=== PATIENT | female | born 1940 | race Caucasian/White ===

== ENCOUNTER → 2024-06-30 12:43 | Outpatient (REF) | payer OTHER, SELFPAY | LOC: HWRCS 12:43 | PROVIDERS: ATTENDING PHYSICIAN Internal Medicine Cardiovascular Disease; FAMILY PHYSICIAN Family Medicine | DX: I25.5 Ischemic cardiomyopathy (principal); Z95.5 Presence of coronary angioplasty implant and graft; I50.22 Chronic systolic (congestive) heart failure | CPT/HCPCS: 93306 ==

== ENCOUNTER 2024-07-03 12:35 | Emergency (ER) | payer OTHER, SELFPAY ==
[2024-07-03 12:47] VITALS: BP 154/83
[2024-07-03 14:13] LABS: % Basophils 0.6 % (0-2); % Eosinophils 0.8 % (0-6); % Immature Granulocytes 0.3 % (0-0.5); % Monocytes 7.1 % (1.7-9.3); % Neutrophils 72.2 % (42.2-75.2); Absolute Basophils 0.1 10^3/uL (0-0.2); Absolute Eosinophils 0.1 10^3/uL (0-0.7); Absolute Lymphocytes 1.5 10^3/uL (1.2-3.4); Absolute Monocytes 0.6 10^3/uL (0.1-0.6); Absolute Neutrophils 5.6 10^3/uL (1.4-6.5); Hematocrit 36.6 % (37.0-47.0); Hemoglobin 12.3 g/dL (12.0-16.0); Mean Corp Hgb Conc. 33.6 g/dL (33.0-37.0); Mean Corpuscular Hgb 32.9 pg (27.0-31.0); Mean Corpuscular Volume 97.9 fL (81.0-99.0); Mean Platelet Volume 10.3 fL (7.4-10.4); Nucleated Red Blood Cells % 0 %; Platelet Count 196 10^3/uL (130-400); Red Blood Cell Count 3.74 10^6/uL (4.20-5.40); Red Cell Dist. Width 13.2 % (11.5-14.5); White Blood Cell Count 7.8 10^3/uL (4.8-10.8)
[2024-07-03 14:28] LABS: ALT (SGPT) 30 U/L (0-35); AST (SGOT) 28 U/L (14-36); Albumin 4.6 g/dl (3.5-5.0); Alkaline Phosphatase 85 U/L (38-126); Blood Urea Nitrogen 24 mg/dl (7-17); Calcium 9.6 mg/dl (8.4-10.2); Carbon Dioxide 28 mmol/L (22-30); Chloride 101 mmol/L (98-107); Glucose 241 mg/dl (70-99); Potassium 4.4 mmol/L (3.5-5.1); Sodium 142 mmol/L (135-145); Total Bilirubin 0.4 mg/dl (0.2-1.3); Total Protein 7.5 g/dl (6.3-8.2); eGFR 37.56
--- NOTE | 2024-07-03 15:00 | ED.MUSCINJ ---
HPI-Injury
General
Chief Complaint: Fall
Source: patient and spouse
Exam Limitations: none
Time Seen by Provider: 07/03/24 13:31
Nursing documentation reviewed up to this point in time: agreed with
History of Present Illness-Injury
Initial Injury comments:
83 yo female w h/o CVA, CHF, CAD, HTN, HLD, mitral regurg, TX, GERD, IDDM, CABG times 12/12/1997, defibrillator 10/2015 presents after being evaluated at her cardiology office by [employer] Jovita Hartman on a regular follow-up. Patient and state
patient had a fall 2 nights ago in the bathroom. She had 1 foot up on the tub applying lotion to her leg when she states the next thing she knew she was on the floor, she does not remember falling or feeling dizzy or lightheaded prior to the fall.
Her states he was standing right beside her and helped lower her to the floor and as she fell her right arm flung out and struck the vanity. She is here for pain in the right wrist and bruising of the right forearm and wrist from the fall.
Since the fall, has had no dizziness, lightheadedness, CP, SOB, abdominal pain n/v/d/c.
Past History
Past History
ED Past Medical History: CAD, CVA, GERD, HTN, Hypercholesterolemia, NIDDM and Other (Anemia)
ED Past Surgical History: Cardiac (Coronary artery bypass graft, 4 vessel, 1997), , Gynecological (Hysterectomy) and Other (Right breast lumpectomy for benign nodule, right eye laser surgery for treatment of detached retina)
Social History
Tobacco: Non-smoker
Alcohol: None
Drug: None
Personal:
Living: with family
Employment: Retired
Family History
Family History: Other (Not applicable)
Review of Systems
Review of Systems
Allergies reviewed?: Yes
All Other Systems: ROS reviewed and negative except as documented in HPI and ROS
Constitutional: Denies fever or fatigue
Respiratory: Denies trouble breathing
Cardiac: Reports syncope; Denies chest pain, diaphoresis or palpitations
ABD/GI: Denies abdominal pain, nausea or vomiting
: Denies dysuria, frequency, difficulty voiding or urgency
Musculoskeletal: Reports other (pain right wrist); Denies neck pain or back pain
Skin: Reports other (bruising right wrist, hand, forearm)
Neurological: Reports no symptoms
Phy Exam
Physical Exam
Physical Exam:
GENERAL: No acute distress. A&Ox3.
CONSTITUTIONAL: Afebrile.
EYES: PERRL, conjunctivae normal
Neck: Supple
ENMT: moist mucus membranes, Pharynx nl
RESPIRATORY: Regular respirations, nonlabored, lungs clear.
CARDIOVASCULAR: Regular rate and rhythm, no murmurs, no rubs.
GI: Soft, nontender, normal BS
MUSCULOSKELETAL: No spinal bony tenderness. Swollen tender ecchymotic right wrist. Mild swelling and ecchymosis right forearm and hand dorsum. moves with ease. Well perfused.
SKIN: Warm, dry, pink.
PSYCH: Normal mood and affect. Well kept, interactive and appropriate
NEUROLOGIC: Awake, alert and oriented. Cranial nerves II through XII intact. Speech clear. Moving all extremities well, strength equal throughout. No focal neurological deficits
Injury Course
Orders/Labs/Results
Orders:
Orders
07/03/24 12:48
CR Wrist - Right Min 3 Views Urgent
Comment:
Reason For Exam: Trauma: Injured in fall.
07/03/24 13:45
Maurice Wrist Right-Tx ONCE
07/03/24 14:04
Complete Blood Count/With Diff Urgent
Comprehensive Metabolic Panel Urgent
Abnormal Lab Results
07/03/24
14:04
RBC 3.74 L 10^6/uL
(4.20-5.40)
Hct 36.6 L %
(37.0-47.0)
MCH 32.9 H pg
(27.0-31.0)
Lymphocytes % 19.0 L %
(20.5-51.1)
BUN 24 H mg/dl
(7-17)
Creatinine 1.4 H mg/dL
(0.6-1.0)
Glucose 241 H mg/dl
(70-99)
07/03/24 14:04
07/03/24 14:04
MDM/Problems Addressed
Differential Diagnosis Includes:
vasovagal episode, orthostatic hypotension
MDM/Problems Addressed:
83 yo female w h/o CVA, CHF, CAD, HTN, HLD, mitral regurg, TX, GERD, IDDM, CABG times 12/12/1997, defibrillator 10/2015 presents after being evaluated at her cardiology office by [facility] Hartman on a regular follow-up. Patient and state
patient had a fall 2 nights ago in the bathroom. She had 1 foot up on the tub applying lotion to her leg when she states the next thing she knew she was on the floor, she does not remember falling or feeling dizzy or lightheaded prior to the fall.
Her states he was standing right beside her and helped lower her to the floor and as she fell her right arm flung out and struck the vanity. She is here for pain in the right wrist and bruising of the right forearm and wrist from the fall.
Since the fall, has had no dizziness, lightheadedness, CP, SOB, abdominal pain n/v/d/c.
Xray right wrist initially read by this examiner: No fracture. Soft tissue swelling noted. Maurice wrist splint applied for comfort.
I contacted Jovita Hartman, [facility] cardi[facility] and she states that she did interrogate her defibrillator today and there were no abnormal episodes. She states that the device nurse will call patient to arrange to change her subq ICD monitor to 180 from
200, she also states that she thinks the episode was most likely an orthostatic episode as she found out at patient's visit today that she has been taking her Entresto 49/52 tablets 2 twice daily when she is only supposed be taking ONE BID. She is
also been taking Eliquis 5 mg twice daily when she should be on 2.5 mg twice daily and this would explain the significant bruising/ecchymosis on her right forearm and wrist from the impact.
Jovita states at the visit today she initially told the patient to decrease her Eliquis to 2.5 mg twice daily and obviously her Entresto to once BID.
Then Jovita reached out to me again because she saw that her creatinine today is 1.4 so she does want her to stay on the Eliquis 5 mg twice a day for now.
Pt is stable for discharge, ambulating well with her cane.
All discharge instructions reviewed and pt and understand
Jovita stopped in to see them just prior to discharge.
*Critical Care Note
Total Time (30-74mins, 75-104mins- exclusive of procedures): Not Applicable
ED Attending Note
-
Portions of this chart may have been created with voice recognition software.� Occasional wrong word or��sound alike� substitutions may have occurred due to the inherent limitations of voice recognition software.
Discharge Plan
Departure
Patient Disposition: Home (Routine Discharge)
Date of Disposition: 07/03/24
Time of Disposition: 15:23
Patient with high blood pressure during this ER visit?: Yes
Condition: Good
Discharge Problem:
Fall, Contusion of right wrist
Instructions: Acute Compartment Syndrome (DC), Contusion (DC), Preventing falls in adults, Fainting, Adult ED
Prescriptions:
No Action
furosemide 40 MG tablet
40 mg PO DAILY
carvedilol 12.5 MG tablet
12.5 mg PO BID@0800,1200
ascorbic acid (vitamin C) [Vitamin C] 500 MG tablet
500 mg PO DAILY
levothyroxine 50 MCG tablet
50 mcg PO DAILY
ferrous sulfate [FeroSul] 325 MG tablet
325 mg PO DAILY
nitroglycerin 0.4 MG tablet, sublingual
0.4 mg sublingual [id number] PRN (Reason: CHEST PAIN)
Centrum Silver Women 1 EACH tablet
1 ea PO DAILY
calcium carbonate [Antacid (calcium carbonate)] 1 TABLET tablet,chewable
1,000 mg PO DAILYPRN PRN (Reason: upset stomach)
amiodarone [Pacerone] 200 MG tablet
200 mg PO DAILY
glimepiride 4 MG tablet
4 mg PO DAILY
docusate sodium 100 MG capsule
100 mg PO BID
fluticasone propionate 1 SPRAY spray,suspension
1 spray intranasal DAILY
clopidogrel 75 MG tablet
75 mg PO DAILY Qty: 30 0RF
Entresto 1 TAB tablet
1 tab PO BID Qty: 60 0RF
Levemir FlexTouch U100 Insulin 300 UNIT/3 ML insulin pen
15 unit SC DAILY Qty: 0 0RF
Patient Comments:
15- 30 units, variable units
Levemir FlexTouch U100 Insulin 300 UNIT/3 ML insulin pen
10 unit SC HS Qty: 0 0RF
diphenhydramine HCl [Benadryl] 25 mg Capsule
25 mg PO DAILY PRN (Reason: allergies)
warfarin 5 mg Tablet
5 mg PO HS
loratadine [Claritin] 10 mg Tablet
10 mg PO DAILY
atorvastatin 80 MG tablet
80 mg PO HS
cephalexin [cephalexin] 500 mg capsule
500 mg PO Q8H Qty: 3 0RF
Rx Instructions:
First dose due at 4pm today
Referrals:
Evan Cano MD [Family Provider] -
Activity Restrictions/Additional Instructions:
As we discussed, I spoke with Jovita Hartman from your cardiology group. She initially told you to decrease the Eliquis to 2.5 mg twice daily.
She has since seen your blood work from today and wants you to go ahead and continue the 5 mg twice daily.
Also, as she said, decrease your dose of Entresto from 2 twice a day to ONE twice a day as this may have contributed to your fainting spell.
The Cardiac Device Nurse will be contacting you to adjust your defibrillator
Return here immediately for worse forearm/wrist/hand swelling or pain, pale or cold fingers, the signs of compartment syndrome as we discussed.
Interventions
Interventions:
*Risk Screen - Suicide Last Done: 07/03/24 15:36
*General Assessment Last Done: 07/03/24 16:01
*Neglect/Abuse Screening Last Done: 07/03/24 15:36
*Nursing Disposition Last Done: 07/03/24 16:01
ED-Musculoskeletal Assessment Last Done: 07/03/24 14:26
ED- Neurological Assessment Last Done: 07/03/24 14:26
ED-Skin Assessment Last Done: 07/03/24 14:26
Discharge Date and Time
Discharge Date/Time: 07/03/24 16:03
Print Language: YORUBA
[2024-07-03 15:09] VITALS: BP 185/79
[2024-07-03 15:36] VITALS: BP 157/82
[2024-07-03 16:01] VITALS: BP 157/82
== END 2024-07-03 16:03 | disposition home or self-care (01) ==
LOC: EMR 12:35
PROVIDERS: Registered Nurse; EMERGENCY PHYSICIAN Emergency Medicine; FAMILY PHYSICIAN Family Medicine
DX: S60.211A Contusion of right wrist, initial encounter (principal); S50.11XA Contusion of right forearm, initial encounter; X58.XXXA Exposure to other specified factors, initial encounter; I11.0 Hypertensive heart disease with heart failure; I50.9 Heart failure, unspecified; I25.2 Old myocardial infarction; E11.9 Type 2 diabetes mellitus without complications; E78.00 Pure hypercholesterolemia, unspecified; I25.10 Atherosclerotic heart disease of native coronary artery without angina pectoris; I34.0 Nonrheumatic mitral (valve) insufficiency; K21.9 Gastro-esophageal reflux disease without esophagitis; Z79.01 Long term (current) use of anticoagulants; Z86.73 Personal history of transient ischemic attack (TIA), and cerebral infarction without residual deficits; Z90.710 Acquired absence of both cervix and uterus; Z95.1 Presence of aortocoronary bypass graft
CPT/HCPCS: 99283; 73110; 80053; 85025

== ENCOUNTER → 2024-08-07 11:37 | Outpatient (REF) | payer OTHER, SELFPAY ==
[2024-08-07 13:34] LABS: Blood Urea Nitrogen 23 mg/dl (7-17); Calcium 9.4 mg/dl (8.4-10.2); Carbon Dioxide 33 mmol/L (22-30); Chloride 96 mmol/L (98-107); Glucose 320 mg/dl (70-99); Potassium 4.2 mmol/L (3.5-5.1); Sodium 140 mmol/L (135-145)
== END ==
LOC: RAD 11:37
PROVIDERS: ATTENDING PHYSICIAN Nurse Practitioner
DX: I25.5 Ischemic cardiomyopathy (principal); Z79.899 Other long term (current) drug therapy
CPT/HCPCS: 36415; 71046; 80048

== ENCOUNTER 2024-08-21 14:37 | Inpatient (IN) | payer OTHER, SELFPAY ==
[2024-08-21] VITALS (7 sets, daily range): BP systolic 131–154; BP diastolic 68–84; BMI 32.3; BMI 32.0
[2024-08-21 10:41] LABS: % Basophils 0.2 % (0-2); % Immature Granulocytes 0.9 % (0-0.5); % Lymphocytes 7.7 % (20.5-51.1); % Monocytes 6.7 % (1.7-9.3); % Neutrophils 84.5 % (42.2-75.2); Absolute Immature Granulocytes 0.1 10^3/uL (0-0.05); Absolute Lymphocytes 0.7 10^3/uL (1.2-3.4); Absolute Monocytes 0.6 10^3/uL (0.1-0.6); Absolute Neutrophils 7.9 10^3/uL (1.4-6.5); Hematocrit 30.1 % (37.0-47.0); Hemoglobin 9.7 g/dL (12.0-16.0); Mean Corp Hgb Conc. 32.2 g/dL (33.0-37.0); Mean Corpuscular Hgb 32.7 pg (27.0-31.0); Mean Corpuscular Volume 101.3 fL (81.0-99.0); Mean Platelet Volume 10.6 fL (7.4-10.4); Nucleated Red Blood Cells % 0 %; Platelet Count 260 10^3/uL (130-400); Red Blood Cell Count 2.97 10^6/uL (4.20-5.40); Red Cell Dist. Width 14.2 % (11.5-14.5); White Blood Cell Count 9.3 10^3/uL (4.8-10.8)
[2024-08-21 10:49] LABS: ALT (SGPT) 68 U/L (0-35); AST (SGOT) 42 U/L (14-36); Albumin 4.1 g/dl (3.5-5.0); Alkaline Phosphatase 94 U/L (38-126); Blood Urea Nitrogen 57 mg/dl (7-17); Calcium 9.3 mg/dl (8.4-10.2); Carbon Dioxide 24 mmol/L (22-30); Chloride 95 mmol/L (98-107); Glucose 432 mg/dl (70-99); Lactic Acid 1.9 mmol/L (0.7-2.0); Potassium 5.7 mmol/L (3.5-5.1); Sodium 133 mmol/L (135-145); Total Bilirubin 0.7 mg/dl (0.2-1.3); Total Protein 6.8 g/dl (6.3-8.2); eGFR 23.09
[2024-08-21 10:55] LABS: COVID-19 Antigen Negative (Negative)
[2024-08-21 11:00] LABS: NT-proBNP 23600 pg/ml
--- NOTE | 2024-08-21 12:55 | ED.GENMED ---
History of Present Illness
General
Chief Complaint: Weakness
Source: patient and spouse
Time Seen by Provider: 08/21/24 12:07
History of Present Illness
History of Present Illness:
This is an 83-year-old female who presents with generalized weakness. She also reports feeling short of breath. Patient states her symptoms started 3 days ago and have persisted. Patient admits to a history of CHF, coronary disease, bypass.
Patient is also diabetic. She admits to mild nausea. She denies melena or hematochezia. She denies abdominal pain. She denies fevers. No cough. Admits to a 4 to 5 pound weight gain. No palpitations. Does take Eliquis daily.
Past History
Past History
ED Past Medical History: CAD, CVA, GERD, HTN, Hypercholesterolemia, NIDDM and Other (Anemia)
ED Past Surgical History: Cardiac (Coronary artery bypass graft, 4 vessel, 1997), , Gynecological (Hysterectomy) and Other (Right breast lumpectomy for benign nodule, right eye laser surgery for treatment of detached retina)
Social History
Tobacco: Non-smoker
Alcohol: None
Drug: None
Personal:
Living: with family
Employment: Retired
Family History
Family History: Other (Not applicable)
Phy Exam
Physical Exam
Physical Exam:
CONSTITUTIONAL Patient alert and oriented to person, place and time. ill-appearing. Vital signs reviewed.
HEAD atraumatic, normocephalic.
EYES eyelids normal to inspection, Extraocular muscles intact, Conjunctiva normal, Sclera normal.
NECK normal range of motion, Trachea midline, no jugular venous distention.
RESPIRATORY CHEST No respiratory distress noted, Chest expansion equal, crackles bilaterally
CARDIOVASCULAR regular rate and rhythm, Heart sounds normal.
ABDOMEN abdomen nontender, Bowel sounds normal. No distention.
BACK normal inspection, no obvious deformities
UPPER EXTREMITY range of motion normal, Motor strength normal, no cyanosis, no edema.
LOWER EXTREMITY range of motion normal, Motor strength normal, no cyanosis, no edema.
NEURO Speech normal, No focal motor deficits, Ola coma scale 15, Memory normal, Cranial Nerves intact to screening exam.
SKIN skin warm, dry, and normal in color.
Course
Orders/Labs/Results
Orders:
Orders
08/21/24 10:11
Electrocardiogram (*1) Urgent
Reason for Study: Fatigue / Weakness
08/21/24 10:12
EKG- Treatment ONCE
08/21/24 10:19
COVID-19 Antigen Urgent
Source: Nasal Swab
Complete Blood Count/With Diff Urgent
Comprehensive Metabolic Panel Urgent
Lactic Acid Urgent
NT-proBNP Urgent
Troponin I Urgent
Influenza A+B Rapid Molecular Urgent
UMER Source: Nasal Swab
Specimen Description:
08/21/24 11:44
CR Chest - 2 Views Urgent
Comment:
Reason For Exam: hypoxia, weakness
08/21/24 11:51
Influenza A+B Rapid Molecular Urgent
UMER Source: Nasal Swab
Specimen Description:
08/21/24 12:54
Insulin Aspart [NOVOLOG vial] 10 units SC NOW STA
08/21/24 12:59
Furosemide [Lasix] 40 mg IV NOW STA
08/21/24 13:01
Electrocardiogram (*1) Stat
Reason for Study: Other
Other Reason for Exam: chest pain
EKG- Treatment ONCE
08/21/24 13:20
Troponin I Urgent
08/21/24 13:53
Admit/Transfer Patient As Directed
Co-Sign Provider:
Level of Care: Inpatient admission
Assign to:: Telemetry
Physician / Group: fabienne
Diagnosis: chf exacerbation
Reason for Telemetry: Arrhythmia
Date to Stop Telemetry: 08/24/24
Time to Stop Telemetry: 11:00
Reason for Hospitalization: chf exacerbation
Expected length of stay greater than two midnights?: Yes
ELOS- Estimated Length of Stay in days: 2
I certify the patient meets the requirements for IP care: Yes
Code Status As Directed
Resuscitation Status: Full Code
PRN Pain Medication Management As Directed
May give lesser potent ordered pain med per pt: Yes
preference::
Protocol:: Medication orders for pain may be administered in a
manner that supports deferring to patient preference
when the pt is:
- Requesting an ordered lesser potent pain medication.
Least to most potent pain medications are defined
as: acetaminophen < NSAID < tramadol < opioids
(morphine, oxycodone, hydromorphone).
- Requesting a lesser dose of the same medication IF
ORDERED.
- Requesting a less intrusive route of administration
if both routes are prescribed by the provider (PO <
IV).
08/21/24 14:05
Abdomen/Pelvis wo Contrast CT [CT Abd/pelvis Wo Iv Cont] Urgent
Comment:
Reason For Exam: ab tenderness, anemia
08/24/24 11:00
DC Protocol for Telemetry ONCE
Abnormal Lab Results
08/21/24 08/21/24
10:19 13:20
RBC 2.97 L 10^6/uL
(4.20-5.40)
Hgb 9.7 L g/dL
(12.0-16.0)
Hct 30.1 L %
(37.0-47.0)
MCV 101.3 H fL
(81.0-99.0)
MCH 32.7 H pg
(27.0-31.0)
MCHC 32.2 L g/dL
(33.0-37.0)
MPV 10.6 H fL
(7.4-10.4)
Abs Immat Gran (auto) 0.1 H 10^3/uL
(0-0.05)
Absolute Neuts (auto) 7.9 H 10^3/uL
(1.4-6.5)
Absolute Lymphs (auto) 0.7 L 10^3/uL
(1.2-3.4)
Immature Gran % 0.9 H %
(0-0.5)
Neutrophils % 84.5 H %
(42.2-75.2)
Lymphocytes % 7.7 L %
(20.5-51.1)
Sodium 133 L mmol/L
(135-145)
Potassium 5.7 H mmol/L
(3.5-5.1)
Chloride 95 L mmol/L
(98-107)
BUN 57 H mg/dl
(7-17)
Creatinine 2.1 H mg/dL
(0.6-1.0)
Glucose 432 H mg/dl
(70-99)
AST 42 H U/L
(14-36)
ALT 68 H U/L
(0-35)
Troponin I 1.640 H* ng/ml 1.990 H* ng/ml
08/21/24 10:19
08/21/24 10:19
Vital Signs
Initial and Last Documented VS:
Initial Vital Signs
Pulse Resp BP Pulse Ox
74 18 132/69 92
08/21/24 10:06 08/21/24 10:06 08/21/24 10:06 08/21/24 10:06
Last Documented Vital Signs
Temp Pulse Resp BP Pulse Ox
97.6 F 82 21 155/73 95
08/21/24 12:23 08/21/24 13:21 08/21/24 12:18 08/21/24 13:21 08/21/24 12:18
MDM/Problems Addressed
Differential Diagnosis Includes:
Anemia, electrolyte imbalance, renal failure, acute coronary syndrome, CHF, sepsis, COVID
MDM/Problems Addressed:
Acute decompensated congestive heart failure, NSTEMI, acute kidney injury, hyperglycemia
*Pulse Oximetry
Patient hypoxic: yes
*EKG
Interpreted by ED Provider?: Yes
Interpretation: abnormal
Rate: normal
Rhythm: sinus
Ischemia: ST depression (ST depression laterally, T wave versions inferiorly, somewhat similar to previous)
*Compliance Reviewer Interpretation
Rate: normal
Interpretation: normal
Rhythm: sinus
*Critical Care Note
Total Time (30-74mins, 75-104mins- exclusive of procedures): 35 minutes
Data Reviewed
Review of Other/Old Records Reveals: Discharge Summary (Prior discharge summary reviewed. From December 2020)
Source: patient and spouse (Spouse adds that she has been seemingly gaining weight in her abdomen)
Prescriptions/Medications Considered But Not Given:
Considered heparin but patient already on Eliquis
Patient Management
Discussion with other providers: Hospitalist and Aircraft Shipping Checker (Case discussed with Dr. Pruett)
Escalation/DeEscalation of care consider admission/obs:
83-year-old female multiple medical conditions. Presents weak and nauseous. In light of diabetes and history, I am concerned about a cardiac source. Case discussed with cardiology. For now recommends just repeat troponin. Will diurese. Hold
off on heparin in light of being on Eliquis. Blood pressure stable.
ED Attending Note
-
Portions of this chart may have been created with voice recognition software.� Occasional wrong word or��sound alike� substitutions may have occurred due to the inherent limitations of voice recognition software.
Discharge Plan
Departure
Patient Disposition: Admit
Date of Disposition: 08/21/24
Time of Disposition: 12:55
Admit to: Telemetry
Presentation/result/management discussed w/ accepting MD/DO: Hospitalist
Discharge Problem:
CHF (congestive heart failure), Acute kidney injury, Acute hyperglycemia, Non-ST elevation AR (NSTEMI)
Prescriptions:
No Action
furosemide 40 MG tablet
40 mg PO DAILY
carvedilol 12.5 MG tablet
12.5 mg PO BID
ascorbic acid (vitamin C) [Vitamin C] 500 MG tablet
500 mg PO DAILY
ferrous sulfate [FeroSul] 325 MG tablet
325 mg PO NOON
calcium carbonate [Antacid (calcium carbonate)] 1 TABLET tablet,chewable
1,000 mg PO DAILYPRN PRN (Reason: upset stomach)
amiodarone [Pacerone] 200 MG tablet
100 mg PO DAILY
glimepiride 4 MG tablet
4 mg PO DAILY
fluticasone propionate 1 SPRAY spray,suspension
1 spray intranasal DAILY
loratadine [Claritin] 10 mg Tablet
10 mg PO DAILY
atorvastatin 80 MG tablet
80 mg PO HS
Theragen Tablet
1 tab PO DAILY
aspirin 81 mg Tablet,Delayed Release (Dr/Ec)
81 mg PO DAILY
levothyroxine [Synthroid] 75 mcg Tablet
75 mcg PO DAILY
insulin glargine [Lantus Solostar U-100 Insulin] 100 unit/mL (3 mL) Insulin Pen
35 unit SC DAILY
insulin glargine [Lantus Solostar U-100 Insulin] 100 unit/mL (3 mL) Insulin Pen
20 unit SC QPM
Eliquis 2.5 mg Tablet
2.5 mg PO BID
sacubitril-valsartan [Entresto] 49-51 mg Tablet
1 tab PO BID
Referrals:
Evan Cano MD [Family Provider] -
Interventions
Interventions:
*Risk Screen - Suicide Last Done: 08/21/24 11:54
*Neglect/Abuse Screening Last Done: 08/21/24 11:54
ED- Fall Risk Assessment Last Done: 08/21/24 11:54
*ED COVID-19 Vaccine History Last Done: 08/21/24 11:54
ED- Cardiac Assessment Last Done: 08/21/24 11:54
ED- Neurological Assessment Last Done: 08/21/24 11:54
ED- Pulmonary Assessment Last Done: 08/21/24 11:54
Discharge Date and Time
Print Language: VIET[place]ESE
--- NOTE | 2024-08-21 13:17 | CON.CAR ---
Addendum entered and electronically signed by Rodney Ovalle MD 08/21/24 14:49:
I saw and examined the patient.
The [employer]PERINTENDENT's note was reviewed and I agree with the note.
Comment: 83 y/o female with moderate MR, PAD (distal right popliteal artery and proximal right superficial femoral artery stenting),�ICM (EF 40% currently), CAD status post CABG 1997, multiple stents since then most recent 2020, AFIB on amiodarone
and Eliquis, HFrEF, and SQ ICD in place. She is here for evaluation of weakness (several weeks), nausea, SOB (past 2 days), weight gain (8 lbs). It is unclear to me as to the cause of her constellation of symptoms. HOwever, given the Hgb drop it is
prudent to rule out bleeding. Additionally, she has fallen twice in the last two weeks and feels SOB. Her weight is certainly up as well and she has some HF.
- IV diuresis
- Holding AC in setting of Hgb drop
- Trend troponin
- Hgb > 7
Original Note:
Consultation
Consultation Request
Date/Time Consultation Requested: 08/21/24 1310
Date/Time Consultation Performed: 08/21/24 1314
Requesting Provider: Dr. Day
Performing Provider: Jovita BRISENO for Dr. Ovalle
Reason for Consultation: Abnormal troponin
Medical History
-
Chief Complaint: weakness, SOB
History of Present Illness:
83 y/o female with moderate MR, PAD (distal right popliteal artery and proximal right superficial femoral artery stenting),�ICM (EF 40% currently), CAD status post CABG 1997, multiple stents since then most recent 2020, AFIB on amiodarone and
Eliquis, HFrEF, and SQ ICD in place. She is here for evaluation of weakness (several weeks), nausea, SOB (past 2 days), weight gain (8 lbs). She denies any CP. She has been taking her meds. She also reports fever and abdominal bloating and
tenderness. Labs show hgb 9.7 (decreased from last month), potassium 5.7, creatinine 2.1 (up from 1.6), glucose 432, BNP 95115, and troponin 1.64. Per nursing O2 sat was 81% on arrival.
Past Medical History
Past Medical History: Arrhythmias, CAD, CHF and Valvular Disease
Social History
Personal:
Living: With Family
Family History
Family History: Reviewed & Not Pertinent
Allergies / Home Medications
Allergy/AdvReac Type Severity Reaction Status Date / Time
ANIA Inhibitors Allergy Unknown Verified 08/21/24 10:08
adhesive [Adhesive] Allergy Hives Verified 08/21/24 10:08
aspartame Allergy PALPITATION Verified 08/21/24 10:08
S
caffeine Allergy palpitation Verified 08/21/24 10:08
s
codeine [Codeine] Allergy Hives, Verified 08/21/24 10:08
swollen
tongue
erythromycin base Allergy drug Verified 08/21/24 10:08
[Erythromycin Base] interaction/pt
on
simvastatin
hydrocodone bitartrate Allergy CONFUSION,UNCONSCIOUS,LOST Verified 08/21/24 10:08
[From Vicodin] THREE DAYS
lisinopril [Lisinopril] Allergy DIZZY Verified 08/21/24 10:08
nitrofurantoin Allergy hives, Verified 08/21/24 10:08
[From Macrobid] dizziness
per chart-
pt unsure
phenylalanine Allergy tongue Verified 08/21/24 10:08
thick,dizzy
palpatations
simvastatin Allergy Unknown Verified 08/21/24 10:08
Sulfa (Sulfonamide Allergy lost Verified 08/21/24 10:08
Antibiotics) consciousness
�Medication �Instructions �Recorded �Confirmed �Type
ascorbic acid (vitamin C) 500 mg 500 mg PO DAILY Supplement 12/05/18 08/21/24 History
tablet (Vitamin C)
carvedilol 12.5 mg tablet 12.5 mg PO BID Blood pressure 12/05/18 08/21/24 History
ferrous sulfate 325 mg (65 mg 325 mg PO NOON Supplement 12/05/18 08/21/24 History
iron) tablet (FeroSul)
furosemide 40 mg tablet 40 mg PO DAILY Fluid 12/05/18 08/21/24 History
retention/Swelling
calcium carbonate (Antacid 1,000 mg PO DAILYPRN PRN upset 01/07/19 08/21/24 History
(calcium carbonate)) stomach
amiodarone 200 mg tablet (Pacerone) 100 mg PO DAILY Heart 01/13/21 08/21/24 History
disease/condition
fluticasone propionate 50 1 spray intranasal DAILY Allergies 01/13/21 08/21/24 History
mcg/actuation nasal
spray,suspension
glimepiride 4 mg tablet 4 mg PO DAILY Diabetes 01/13/21 08/21/24 History
atorvastatin 80 mg tablet 80 mg PO HS 06/01/22 08/21/24 History
loratadine 10 mg tablet (Claritin) 10 mg PO DAILY 06/01/22 08/21/24 History
apixaban 2.5 mg tablet (Eliquis) 2.5 mg PO BID 08/21/24 08/21/24 History
aspirin 81 mg tablet,delayed 81 mg PO DAILY 08/21/24 08/21/24 History
release
insulin glargine 100 unit/mL (3 20 unit SC QPM 08/21/24 08/21/24 History
mL) subcutaneous pen (Lantus
Solostar U-100 Insulin)
insulin glargine 100 unit/mL (3 35 unit SC DAILY 08/21/24 08/21/24 History
mL) subcutaneous pen (Lantus
Solostar U-100 Insulin)
levothyroxine 75 mcg tablet 75 mcg PO DAILY 08/21/24 08/21/24 History
(Synthroid)
sacubitril 49 mg-valsartan 51 mg 1 tab PO BID 08/21/24 08/21/24 History
tablet (Entresto)
therapeutic multivitamin 1 tab PO DAILY 08/21/24 08/21/24 History
Review of Systems
-
History Source: Patient
All other systems: Negative unless noted
Constitutional: Chills and Other (weakness)
Respiratory: Trouble Breathing
Abdomen/GI: Nausea
Neurological: Weakness
Physical Exam
Vital Signs
Temp Pulse Resp BP Pulse Ox
97.6 F 88 21 135/77 95
08/21/24 12:23 08/21/24 12:18 08/21/24 12:18 08/21/24 12:18 08/21/24 12:18
Lab Results
08/21/24 10:19
08/21/24 10:19
Troponin I 1.640 ng/ml H* 08/21/24 10:19
Awp-X-Zfnegbdrmwk Pept 01741 pg/ml 08/21/24 10:19
Physical Exam
General: Well Developed, Well Nourished, No Apparent Distress and Other (pale)
HEENT: Normocephalic and Anicteric
Respiratory: Crackles (b/l crackles), Non Labored Respirations and Other (on O2 by NC)
Cardiac: Regular Rhythm
GI: Tender and Distended
Musculoskeletal: No Edema
Skin: Dry
Neuro: AO x 3
Psych: Calm
Impression / Plan
-
Arfnz-ty-hrvkshn HFrEF:
-IV Lasix, which requires intensive monitoring
-recent echo as noted
Abnormal troponin:
-likely acute non-ischemic myocardial injury in setting of CHF, NARCISO, anemia, hypoxemia
-denies any CP
-trend to peak
-may need updated ischemic evaluation, but acutely ill with many issues presently and is currently not appropriate for that
CAD with CABG and stenting:
-denies any CP
-On ASA- continue, as well as statin and BB- continue
ICM:
-EF 40%
-continue Coreg
-on Entresto- hold with NARCISO
PAF:
-stable in SR
-on amiodarone and Eliquis- would hold Eliquis until it is clear she is not acutely bleeding
Anemia:
-denies blood in urine or stool, but has black stool since on iron
-Eliquis as above
-w/u per primary team
NARCISO:
-monitor with diuresis
Hyperkalemia:
-monitor with diuresis
SQ ICD is in place
Data:
Cath 01/17/21: Severe [place] triple-vessel CAD as described with patent PAIGE-LAD and patent but severely diseased SVG-OM2. In addition to the severe disease in the vein graft, there is new significant mid LAD disease distal to the XAVIER graft
touchdown site. Successful stenting of 90% mid body SVG-OM2 graft lesion using 4.0 x 23 Xience Estefania GEO. Successful stenting of 60% distal SVG-OM2 graft lesion using 4.0 x 12 Xience Estefania GEO.
Data Reviewed
-
EKG: Tracing Personally Visualized and interpreted (SR with 1st degree AVB 82 BPM, ST abnormality inferior and lateral)
Radiology: Report Reviewed by me (CXR: 1. Mild pulmonary edema. 2. Small bilateral pleural effusions.)
Medical Tests (Nuc Med, Echo etc): Report Reviewed by me (Echo 06/30/24: EF 40%, moderate MR. Stable.) and Other (cath as noted)
Labs: Labs Reviewed by me
[2024-08-21] MEDS: NOVOLOG vial 10 UNITS SC (13:21)
[2024-08-21] MEDS: LASIX 40 MG IV (13:21)
--- NOTE | 2024-08-21 13:58 | HPS.HSE ---
Family Physician
-
Family Physician: Evan Cano
Chief Complaint
-
shortness of breath
History of Present Illness
83-year-old female past medical history of permanent atrial fibrillation on Coumadin, CVA, chronic HFrEF with ICD, CAD status post CABG status post graft stenting, history of GI bleeding secondary to Dieulafoy lesion status post clip, ruptured
duodenal vein in 2015, iron deficiency anemia, CKD 3B, essential hypertension, GERD, hyperlipidemia, presenting with multiple complaints.
Patient has been complaining of generalized weakness and fatigue and shortness of breath a week ago. Shortness of breath is worse when she lies down or exerts herself. She has gained 4 pounds during this time despite taking Lasix. She denies any
chest pain. Denies palpitations or dizziness. Entresto dosage was apparently recently decreased by the commissioner public works.
She is also been complaining of intermittent vomiting for the past week. She has chronic black stools ever since she started iron supplements. She denies any recent changes in her stool. Denies diarrhea. Denies rosetta blood in the stool. She
also complains of abdominal pain with palpation. She is having normal bowel movements. She has been eating normally.
She denies any sore throat. Denies any fevers or chills. Denies any recent upper respiratory viral illness.
A few months ago her insulin was switched to a different brand and since then her blood sugars have become elevated to the 200s. In the past few days her blood sugars have went up to 500s. She is taking her insulin as she normally does.
She denies smoking or alcohol use.
Medical History
Past Medical History
Past Medical History: Reports Other (permanent atrial fibrillation on Coumadin, CVA, chronic HFrEF with ICD, CAD status post CABG status post graft stenting, history of GI bleeding secondary to Dieulafoy lesion status post clip, ruptured duodenal
vein in 2015, iron deficiency anemia, CKD 3B, essential hypertension, GERD, hyperlipidemia)
Past Surgical History: Reports Other (Coronary artery bypass graft, 4 vessel, 1997), , Gynecological (Hysterectomy) and Other (Right breast lumpectomy for benign nodule, right eye laser surgery for treatment of detached retina))
Social History
Tobacco: Non-smoker
Alcohol: None
Drug: None
Family History
Family History: Not pertinent
Allergies / Home Medications
Allergies reflects when Allergies were last updated in [employer].
Home Medications with original date entered in [employer]
Allergy/Medication List:
Allergies
Allergy/AdvReac Type Severity Reaction Status Date / Time
ANIA Inhibitors Allergy Unknown Verified 08/21/24 10:08
adhesive [Adhesive] Allergy Hives Verified 08/21/24 10:08
aspartame Allergy PALPITATION Verified 08/21/24 10:08
S
caffeine Allergy palpitation Verified 08/21/24 10:08
s
codeine [Codeine] Allergy Hives, Verified 08/21/24 10:08
swollen
tongue
erythromycin base Allergy drug Verified 08/21/24 10:08
[Erythromycin Base] interaction/pt
on
simvastatin
hydrocodone bitartrate Allergy CONFUSION,UNCONSCIOUS,LOST Verified 08/21/24 10:08
[From Vicodin] THREE DAYS
lisinopril [Lisinopril] Allergy DIZZY Verified 08/21/24 10:08
nitrofurantoin Allergy hives, Verified 08/21/24 10:08
[From Macrobid] dizziness
per chart-
pt unsure
phenylalanine Allergy tongue Verified 08/21/24 10:08
thick,dizzy
palpatations
simvastatin Allergy Unknown Verified 08/21/24 10:08
Sulfa (Sulfonamide Allergy lost Verified 08/21/24 10:08
Antibiotics) consciousness
Home Medications
ascorbic acid (vitamin C) 500 mg tablet (Vitamin C) 500 mg PO DAILY Supplement 12/05/18
carvedilol 12.5 mg tablet 12.5 mg PO BID Blood pressure 12/05/18
ferrous sulfate 325 mg (65 mg iron) tablet (FeroSul) 325 mg PO NOON Supplement 12/05/18
furosemide 40 mg tablet 40 mg PO DAILY Fluid retention/Swelling 12/05/18
calcium carbonate (Antacid (calcium carbonate)) 1,000 mg PO DAILYPRN PRN upset stomach 01/07/19
amiodarone 200 mg tablet (Pacerone) 100 mg PO DAILY Heart disease/condition 01/13/21
fluticasone propionate 50 mcg/actuation nasal spray,suspension 1 spray intranasal DAILY Allergies 01/13/21
glimepiride 4 mg tablet 4 mg PO DAILY Diabetes 01/13/21
atorvastatin 80 mg tablet 80 mg PO HS 06/01/22
loratadine 10 mg tablet (Claritin) 10 mg PO DAILY 06/01/22
apixaban 2.5 mg tablet (Eliquis) 2.5 mg PO BID 08/21/24
aspirin 81 mg tablet,delayed release 81 mg PO DAILY 08/21/24
insulin glargine 100 unit/mL (3 mL) subcutaneous pen (Lantus Solostar U-100 Insulin) 20 unit SC QPM 08/21/24
insulin glargine 100 unit/mL (3 mL) subcutaneous pen (Lantus Solostar U-100 Insulin) 35 unit SC DAILY 08/21/24
levothyroxine 75 mcg tablet (Synthroid) 75 mcg PO DAILY 08/21/24
sacubitril 49 mg-valsartan 51 mg tablet (Entresto) 1 tab PO BID 08/21/24
therapeutic multivitamin 1 tab PO DAILY 08/21/24
Review of Systems
-
History Source: Patient
A 12 point ROS was completed and negative except as noted: Yes
Constitutional: Reports No Symptoms
EENT: Reports No Symptoms
Respiratory: Reports See HPI
Cardiac: Reports See HPI
Abdomen/GI: Reports See HPI
: Reports No Symptoms
Musculoskeletal: Reports No Symptoms
Skin: Reports No Symptoms
Neurological: Reports No Symptoms
Endocrine: Reports No Symptoms
Hematologic/Lymphatic: Reports No Symptoms
Psych: Reports No Symptoms
Physical Exam
Vital Signs
Vital Signs
Temp Pulse Resp BP Pulse Ox
97.6 F 82 21 155/73 95
08/21/24 12:23 08/21/24 13:21 08/21/24 12:18 08/21/24 13:21 08/21/24 12:18
Physical Exam
General: Well Developed, Well Nourished and No Apparent Distress
HEENT: NormoCephalic, Moist mucous membranes and Atraumatic
Respiratory: Clear
Cardiac: S1/S2 and Regular Rhythm; No Murmur or Rub
GI: Soft, Non Tender, Non Distended and Normal Bowel Sounds; No Organomegaly
Rectal: Deferred by Provider
Musculoskeletal: No Clubbing, No Cyanosis and No Edema
Skin: No Rash
Neuro: Nonfocal/grossly intact
Laboratory Results
-
08/21/24 10:19
08/21/24 10:19
Laboratory Results
Lactic Acid 1.9 mmol/L (0.7-2.0) 08/21/24 10:19
Total Bilirubin 0.7 mg/dl (0.2-1.3) 08/21/24 10:19
AST 42 U/L (14-36) H 08/21/24 10:19
ALT 68 U/L (0-35) H 08/21/24 10:19
Alkaline Phosphatase 94 U/L (38-126) 08/21/24 10:19
Troponin I 1.640 ng/ml H* 08/21/24 10:19
Data Reviewed
-
Lab Data: Labs Reviewed by me
Old Records: Reviewed
Impression/Plan
-
IMPRESSION:
PLAN:
# Acute on on chronic HFrEF exacerbation
# History of ICD placement
-Patient normally uses 3 L oxygen
-Cardiac BNP of 23,000 from 4000 previously
-Chest x-ray shows mild cardiomegaly, small bilateral pleural effusions, mild prominence of interstitial compartment
-Check I's and O's, daily weights
-40 IV Lasix given
-Recent echo from June shows EF of 40%, moderate mitral regurgitation
-Continue Coreg
-Hold Entresto due to NARCISO
-Cardiology consulted
# Nonischemic myocardial injury secondary to CHF exacerbation/NARCISO versus NSTEMI
-No chest pain
-Troponin 1.64
-Trend troponins
-EKG shows sinus rhythm with first-degree AV block, diffuse T wave inversions
-Continue Eliquis
# NARCISO on CKD 3B
# Hyperkalemia
-Creatinine of 2.1 from 1.6 baseline
-Monitor with diuresis
-Hold Entresto
# Hyperglycemia unclear etiology
-Hold glimepiride
-Continue Lantus 35 units daily, 20 units at night
-High dose insulin sliding scale
# Abdominal pain
-Diffuse abdominal tenderness
-Unclear etiology
-Check CT abdomen pelvis
# Acute macrocytic anemia
# Iron deficiency anemia
-Hemoglobin dropped from 12.3 in June to 9.7
-Check iron studies, B12 and folate, fecal occult
-Continue ferrous sulfate
# History of GI bleeding secondary to Dieulafoy lesion status post clip
#History of ruptured duodenal vein in 2014
Permanent atrial fibrillation
-Continue amiodarone
-Continue Eliquis
CAD status post CABG status post graft stenting
-Continue aspirin, statin
Essential hypertension
GERD
Hyperlipidemia
Hypothyroidism
-Continue levothyroxine
Full code
DVT prophylaxis�Eliquis
Cardiac diet
--- NOTE | 2024-08-21 16:45 | PTCARENOTE ---
Received pt from ER.Pt drowsy but arousable to verbal stimuli. Pt reports she hasnt been getting sleep the past couple nights due to her breathing and is just exhausted. Pt oriented x3. 96% on 4L. Pt NSR with 1st degree AV block on tele. Pt other
VSS. Pt c/o back pain, chronic, tolerable at this time. No c/o chest pain. Pt oriented to room,call grant within reach, bed alarm placed for safety, plan of care continues.
[2024-08-21 16:46] LABS: Glucose - Point of Care 279 mg/dl (70-99)
[2024-08-21 17:42] LABS: Iron 124 ug/dl (37-170)
[2024-08-21 17:51] LABS: Percent Saturation 61 % (20-50); Total Iron Binding Capacity 202 ug/dl (265-497)
[2024-08-21 17:59] LABS: Hematocrit 31.1 % (37.0-47.0); Hemoglobin 10.3 g/dL (12.0-16.0)
[2024-08-21] MEDS: NOVOLOG FLEXPEN-HIGH RESISTANCE 7 UNITS SC (18:08)
[2024-08-21 19:24] LABS: Folate > 20.0 ng/ml (2.76-20); Vitamin B12 456 pg/ml (239-931)
[2024-08-21] MEDS: LIPITOR 80 MG PO (20:26)
[2024-08-21] MEDS: COREG 12.5 MG PO (20:26)
[2024-08-21] MEDS: ELIQUIS 2.5 MG PO (20:26)
[2024-08-21 21:49] LABS: Glucose - Point of Care 226 mg/dl (70-99)
[2024-08-21] MEDS: LANTUS 0.2 UNITS SC (23:00)
[2024-08-22] VITALS (33 sets, daily range): BP systolic 49–161; BP diastolic 31–74; BMI 30.9
[2024-08-22] MEDS: SYNTHROID 75 MCG PO (05:31)
[2024-08-22 08:18] LABS: Glucose - Point of Care 224 mg/dl (70-99)
[2024-08-22 09:01] LABS: ALT (SGPT) 60 U/L (0-35); AST (SGOT) 34 U/L (14-36); Albumin 3.9 g/dl (3.5-5.0); Alkaline Phosphatase 93 U/L (38-126); Blood Urea Nitrogen 66 mg/dl (7-17); Calcium 9.2 mg/dl (8.4-10.2); Carbon Dioxide 26 mmol/L (22-30); Chloride 98 mmol/L (98-107); Estimated Creatinine Clearance 24 ml/min; Glucose 195 mg/dl (70-99); Potassium 4.7 mmol/L (3.5-5.1); Sodium 135 mmol/L (135-145); Total Bilirubin 0.5 mg/dl (0.2-1.3); Total Protein 6.6 g/dl (6.3-8.2); eGFR 27.78
[2024-08-22 09:04] LABS: % Basophils 0.3 % (0-2); % Eosinophils 0.2 % (0-6); % Immature Granulocytes 0.4 % (0-0.5); % Lymphocytes 8.8 % (20.5-51.1); % Monocytes 8.6 % (1.7-9.3); % Neutrophils 81.7 % (42.2-75.2); Absolute Monocytes 0.9 10^3/uL (0.1-0.6); Absolute Neutrophils 8.8 10^3/uL (1.4-6.5); Hematocrit 29.4 % (37.0-47.0); Mean Corpuscular Hgb 33.4 pg (27.0-31.0); Mean Corpuscular Volume 98.3 fL (81.0-99.0); Mean Platelet Volume 11.1 fL (7.4-10.4); Nucleated Red Blood Cells % 0 %; Platelet Count 236 10^3/uL (130-400); Red Blood Cell Count 2.99 10^6/uL (4.20-5.40); Red Cell Dist. Width 14.2 % (11.5-14.5); White Blood Cell Count 10.8 10^3/uL (4.8-10.8)
[2024-08-22] MEDS: NOVOLOG FLEXPEN-HIGH RESISTANCE 4 UNITS SC (09:07)
[2024-08-22] MEDS: ASPIR LOW (ENTERIC COATED) 81 MG PO (09:07)
[2024-08-22] MEDS: COREG 12.5 MG PO (09:07)
[2024-08-22] MEDS: PACERONE 100 MG PO (09:08)
[2024-08-22] MEDS: CLARITIN 10 MG PO (09:08)
[2024-08-22] MEDS: LASIX 40 MG IV ×2 (09:08→15:13)
[2024-08-22] MEDS: THERAGRAN 1 TABLET PO (09:08)
[2024-08-22] MEDS: ELIQUIS 2.5 MG PO (09:08)
[2024-08-22] MEDS: VITAMIN C 500 MG PO (09:08)
[2024-08-22] MEDS: LANTUS 0.35 UNITS SC (09:10)
[2024-08-22] MEDS: TYLENOL 650 MG PO (09:39)
--- NOTE | 2024-08-22 11:35 | W.PN.ANESINT ---
Anesthesia Intubation Note
- Intubation Note
Intubation Note:
Diagnosis: Cardic arrest
Blade: 4
Tube Size: 8.0
Depth: 22cm
Side Taped: respiratory secured tube
Drugs Used: none
Grade View: 1
EtCO2 Present: yes
Atraumatic: yes
Attempts: 1
Insertion Start and Stop Time: 11:25 11:26
SaO2 Pre: n/a
SaO2 Post: n/a
Glidescope Used:
Other Airway Adjustments:
Pre-Oxygenated: yes
Portable Chest X-Ray:
RSI:
Suctioned:
Bilateral Breath Sounds Confirmed: yes
Vent Settings:
Settings per ___Attending Physician
Pt left in care of code team cardiology and pulmonary
--- NOTE | 2024-08-22 11:57 | RR ---
A Rapid Response was called on this patient, please see Rapid Response form.
Pt. HR 40 on tele monitor at 1117, this nurse responded immediately, pt. at bedside reported that he had just taken pt. to the bathroom.This nurse found pt. without O2 on, diogenes complexion, gasping for air and unresponsive to voice and
sternal rub. Rapid response called, Dr. Pruitt on unit and immediately enter room with respiratory therapist. No heart rate felt on palpation, code called, CPR started immediately. Code team at bedside at 1124.
[2024-08-22] MEDS: SUBLIMAZE 50 MCG IV ×4 (12:08→23:29)
--- NOTE | 2024-08-22 12:20 | CON.INTV ---
Consultation
Consultation Request
Date/Time Consultation Requested: 08/22
Date/Time Consultation Performed: 08/22
Reason for Consultation: Critical care
Medical History
-
History of Present Illness:
History obtained from the , reviewing hospital records and outpatient records. 83-year-old female with history of cardiomyopathy on amiodarone, atrial fibrillation on anticoagulation. According to , patient been short of breath for 2
to 3 weeks, refused to be evaluated. Waited for routine visit with primary care physician 08/21/2024. Had not been feeling well, complaining of shortness of breath. She also had 2 syncopal episodes over the last 3 weeks, both times lost
consciousness according to , caught by who happened to be standing next to her at the time. There is no history of head trauma. After seeing her primary physician, she was sent to the ED. Upon arrival, pulse 74, breathing at 18,
blood pressure 132/69, 92%, afebrile. Per ED records, patient diagnosed with decompensated heart failure, elevated troponin. Records also suggest nausea and weakness. Patient was given diuretic therapy. On 08/22 while walking to the bathroom
according nurses, patient returned back and was noted to be unresponsive. Code 9 was called. Patient had no pulse, CPR was started. 20 minutes of high-quality CPR performed with PA. Patient received bicarbonate, epi x 5, atropine and fluids.
She was intubated and ROSC was achieved. Patient was transferred to ICU. Stat POCUS at the bedside performed by cardiology normal-appearing RV, akinetic base of the LV. No tamponade, no pericardial effusion. EKG with persistent lateral ST
depressions.
Upon discussion with the , he cannot recall to me details but patient has been short of breath for 2 to 3 weeks, refused care. There is no clear history of falls. She does have a history of dark black stool and was also noted to be anemic
on admission
.
PMH: Atrial fibrillation on amiodarone, Eliquis therapy 2.5 mg twice a day, history of cardiomyopathy with ICD on amiodarone therapy, history of syncope thought to be secondary to orthostasis. History of diabetes, hypertension, hyperlipidemia,
peptic ulcer disease/GERD, stroke 1997, chronic kidney disease stage III, history of coronary disease with bypass surgery, GI bleed in the past
Past Medical History
Past Medical History: None (See HPI)
Past Surgical History: None (See HPI)
Social History
Tobacco: Former Smoker (Quit many years ago)
Alcohol: None
Drug: None
Personal:
Living: With Family
Family History
Family History: Other (Father from heart attack at 42)
Allergies / Home Medications
Allergies
Allergy/AdvReac Type Severity Reaction Status Date / Time
ANIA Inhibitors Allergy Unknown Verified 08/21/24 10:08
adhesive [Adhesive] Allergy Hives Verified 08/21/24 10:08
aspartame Allergy PALPITATION Verified 08/21/24 10:08
S
caffeine Allergy palpitation Verified 08/21/24 10:08
s
codeine [Codeine] Allergy Hives, Verified 08/21/24 10:08
swollen
tongue
erythromycin base Allergy drug Verified 08/21/24 10:08
[Erythromycin Base] interaction/pt
on
simvastatin
hydrocodone bitartrate Allergy CONFUSION,UNCONSCIOUS,LOST Verified 08/21/24 10:08
[From Vicodin] THREE DAYS
lisinopril [Lisinopril] Allergy DIZZY Verified 08/21/24 10:08
nitrofurantoin Allergy hives, Verified 08/21/24 10:08
[From Macrobid] dizziness
per chart-
pt unsure
phenylalanine Allergy tongue Verified 08/21/24 10:08
thick,dizzy
palpatations
simvastatin Allergy Unknown Verified 08/21/24 10:08
Sulfa (Sulfonamide Allergy lost Verified 08/21/24 10:08
Antibiotics) consciousness
Home Medications
�Medication �Instructions �Recorded �Confirmed �Last Taken �Type
ascorbic acid (vitamin C) 500 mg 500 mg PO DAILY Supplement 12/05/18 08/21/24 08/20/24 History
tablet (Vitamin C)
carvedilol 12.5 mg tablet 12.5 mg PO BID Blood pressure 12/05/18 08/21/24 08/20/24 History
ferrous sulfate 325 mg (65 mg 325 mg PO NOON Supplement 12/05/18 08/21/24 08/20/24 History
iron) tablet (FeroSul)
furosemide 40 mg tablet 40 mg PO DAILY Fluid 12/05/18 08/21/24 08/20/24 History
retention/Swelling
calcium carbonate (Antacid 1,000 mg PO DAILYPRN PRN upset 01/07/19 08/21/24 Unknown History
(calcium carbonate)) stomach
amiodarone 200 mg tablet (Pacerone) 100 mg PO DAILY Heart 01/13/21 08/21/24 08/20/24 History
disease/condition
fluticasone propionate 50 1 spray intranasal DAILY Allergies 01/13/21 08/21/24 08/20/24 History
mcg/actuation nasal
spray,suspension
glimepiride 4 mg tablet 4 mg PO DAILY Diabetes 01/13/21 08/21/24 08/20/24 History
atorvastatin 80 mg tablet 80 mg PO HS 06/01/22 08/21/24 08/20/24 History
loratadine 10 mg tablet (Claritin) 10 mg PO DAILY 06/01/22 08/21/24 08/20/24 History
apixaban 2.5 mg tablet (Eliquis) 2.5 mg PO BID 08/21/24 08/21/24 08/20/24 History
aspirin 81 mg tablet,delayed 81 mg PO DAILY 08/21/24 08/21/24 08/20/24 History
release
insulin glargine 100 unit/mL (3 20 unit SC HS 08/21/24 08/21/24 08/20/24 History
mL) subcutaneous pen (Lantus
Solostar U-100 Insulin)
insulin glargine 100 unit/mL (3 35 unit SC DAILY 08/21/24 08/21/24 08/20/24 History
mL) subcutaneous pen (Lantus
Solostar U-100 Insulin)
levothyroxine 75 mcg tablet 75 mcg PO DAILY 08/21/24 08/21/24 08/20/24 History
(Synthroid)
sacubitril 49 mg-valsartan 51 mg 1 tab PO BID 08/21/24 08/21/24 08/20/24 History
tablet (Entresto)
therapeutic multivitamin 1 tab PO DAILY 08/21/24 08/21/24 08/20/24 History
Review of Systems
Vitals / Labs / Diagnostic Testing
Vital Signs
Temp Pulse Resp BP Pulse Ox
97.5 F 78 20 148/74 92
08/22/24 08:50 08/22/24 08:50 08/22/24 08:50 08/22/24 08:50 08/22/24 08:50
Microbiology
08/21/24 11:51 Nasal Swab Influenza Types A & B (THERESE) - Final
Negative for Influenza A & B, NAAT
Negative results must be combined with clinical observations
and patient history.
Nucleic Acid Amplification test (NAAT)performed on the
[email or web address] NOW platform.
08/21/24 10:19 Nasal Swab Influenza Types A & B (THERESE) - Final
Test repeatedly invalid.
Nucleic Acid Amplification test (NAAT)performed on the
[employer] NOW platform.
Diagnostic Testing:
Physical Exam
-
HEENT: Normocephalic and Anicteric
Cardiovascular: S1/S2, Regular Rhythm, Murmur (n) and Rub (n)
Respiratory: Wheeze (n), Rales (n), Rhonchi (n) and Other (Intubated)
GI: Soft, Non Distended and Non Tender
Neurology: Awake and No Motor Deficits (Following commands, moves all extremities, nods appropriately)
Skin: Good Color (Mild pallor)
General: Comfortable
Assessment
-
83-year-old female with history of coronary disease distant bypass surgery 1997, atrial fibrillation on amiodarone and Eliquis at 2.5 mg twice a day who presents with 2 to 3-week history of shortness of breath. Cording to Yashira, patient
refused evaluation but was seen as a routine visit by primary 08/21 was instructed to go to the ED. Found to be hypoxic, thought to be heart failure with elevated troponin. Also found to be anemic. On 08/22 developed cardiac arrest followed by 20
minutes of high-quality CPR with ROSC, intubated and transferred to ICU 08/22
Acute hypoxic respiratory failure
Intubated 08/22
Code 9, 20 minutes high-quality CPR (Epi x 5, Atropine x 1, bicarb, IVF, intubated)
Bilateral patchy infiltrates, suspected right upper lobe consolidation
Pneumonia versus patchy heart failure
COVID, influenza negative at time of admission
Shortness of breath x 3 weeks
History of falls, syncope
Twice in the last 3 weeks
Anemia, hemoglobin 9.5
Leukocytosis
Acute renal insufficiency, creatinine 2.1
Baseline 1.4-1.6
Acute transaminitis, likely secondary to cardiac arrest
Conditions present prior to admission
History of CKD baseline creatinine 1.4
History of syncope, suspected orthostasis per outpatient records
Atrial fibrillation on Eliquis 2.5 mg twice a day
Coronary disease history of bypass surgery
s/p [facility] 01/17/2021: Successful stenting of mid SVG OM2 graft and distal SVG to OM 2 graft
History of heart failure, elevated filling pressures per catheterization 2020
History of stroke 1997
GERD/peptic ulcer disease
Diabetes
Hypertension/hyperlipidemia
Hypoxia on home oxygen, details unclear
Distant tobacco history
Plan/recommendations
At this time, patient with extremely complex history
Salient features include hypoxic event with cardiac arrest with ROSC following high-quality CPR
Chest x-ray with bilateral patchy infiltrates suggestive of possible right upper lobe pneumonia
Patient has had 2 to 3 weeks of shortness of breath per
Moving forward
Continue with volume-cycled ventilation
AC 16/450/5/100%
Wean FiO2 as able
Check ABG
Empiric antibiotics for presumed pneumonia, community-acquired
Tracheal culture
Check Dopplers
Check echocardiogram
Maintain sedation, light sedation with fentanyl
Cardiology following
Remains on aspirin, Eliquis
Differential also includes thromboembolic process
Less likely given normal RV on POCUS, await echo
Patient on chronic Eliquis therapy although 2.5 mg twice a day
Patient with history of syncope which appears to be chronic upon reviewing outpatient records
Thought to be due to orthostasis
DVT prophylaxis: Remains on Eliquis. Add sequential teds
GI prophylaxis: Add Protonix
Reviewed at length with critical care nursing, respiratory care, cardiology, primary service
Updated at length
we will follow
TCCT 77 min
--- NOTE | 2024-08-22 12:32 | W.PN.UPDATE ---
Update Note
Progress Note Update
I responded to an overhead code on patient Donna Allan. The patient was known to our service, having been admitted with subacute symptoms of weakness, nausea, shortness of breath, and weight gain, with a new Hb drop. This morning, she was found
unresponsive in a bradycardic rhythm. She did not have a pulse and CPR was initiated. Approximately 20 minutes of high quality CPR was performed with PEA throughout. During this time, the patient received bicarbonate, 1 mg epi x5, atropine 0.5 mg,
and fluids. She was intubated and achieved ROSC about 4 minutes post-intubation with sinus tachycardiac and a hypertensive blood pressure. Prior to her regaining ROSC, administration of tPA for empiric treatment of PE was considered but deferred
once she had achieved ROSC.
In the ICU, bedside echocardiogram was performed and demonstrated severely reduced EF with diakinetic/akinetic base and more normal function of the apex, no signs of tamponade or aortic pathology. RV function was reduced but size normal. She was
noted to move all extremities and follow simple commands. EKG demonstrate lateral ST depressions largely unchanged from prior. Presumed diagnosis for her arrest is hypoxic.
Critical care time: 40 minutes
[2024-08-22] MEDS: NSS 1000 IV ×2 (12:49→13:27)
[2024-08-22] MEDS: FEOSOL PO (12:50)
[2024-08-22 12:51] LABS: B.E. -13.5 mmol/L; Ionized Calcium 1.14 mMOL/L (1.15-1.33); O2 Saturation % 61.2 % (94-98); PCO2 35 mmHg (32-35); Potassium 4.4 mMOL/L (3.5-5.1); Sodium 126 mMOL/L (136-145)
[2024-08-22] MEDS: LEVOPHED 250 IV (12:53)
[2024-08-22 12:55] LABS: HCO3 13.4 mmol/L (21-28); PO2 37 mmHg (83-108); pH 7.19 (7.35-7.45)
[2024-08-22] MEDS: SUBLIMAZE 100 IV (12:55)
[2024-08-22 12:58] LABS: % Basophils 0.2 % (0-2); % Eosinophils 0.1 % (0-6); % Immature Granulocytes 1.3 % (0-0.5); % Lymphocytes 4.4 % (20.5-51.1); % Monocytes 6.6 % (1.7-9.3); % Neutrophils 87.4 % (42.2-75.2); Absolute Immature Granulocytes 0.2 10^3/uL (0-0.05); Absolute Lymphocytes 0.6 10^3/uL (1.2-3.4); Absolute Neutrophils 12.8 10^3/uL (1.4-6.5); Hematocrit 30.1 % (37.0-47.0); Hemoglobin 9.5 g/dL (12.0-16.0); Mean Corp Hgb Conc. 31.6 g/dL (33.0-37.0); Mean Corpuscular Hgb 32.4 pg (27.0-31.0); Mean Corpuscular Volume 102.7 fL (81.0-99.0); Mean Platelet Volume 10.3 fL (7.4-10.4); Nucleated Red Blood Cells % 0.1 %; Platelet Count 261 10^3/uL (130-400); Red Blood Cell Count 2.93 10^6/uL (4.20-5.40); Red Cell Dist. Width 14.1 % (11.5-14.5); White Blood Cell Count 14.6 10^3/uL (4.8-10.8)
[2024-08-22 13:07] LABS: PT 17.7 Sec (11.4-14.6)
[2024-08-22 13:10] LABS: ALT (SGPT) 225 U/L (0-35); AST (SGOT) 246 U/L (14-36); Albumin 3.4 g/dl (3.5-5.0); Alkaline Phosphatase 91 U/L (38-126); Blood Urea Nitrogen 64 mg/dl (7-17); Calcium 8.8 mg/dl (8.4-10.2); Carbon Dioxide 30 mmol/L (22-30); Chloride 95 mmol/L (98-107); Estimated Creatinine Clearance 22 ml/min; Glucose 329 mg/dl (70-99); Magnesium 2.5 mg/dl (1.6-2.3); Potassium 4.9 mmol/L (3.5-5.1); Sodium 135 mmol/L (135-145); Total Bilirubin 0.6 mg/dl (0.2-1.3); Total Protein 5.9 g/dl (6.3-8.2); eGFR 24.48
[2024-08-22] MEDS: ROCEPHIN 1000 MG IV (13:13)
[2024-08-22] MEDS: STERILE WATER FOR INJECTION 10 ML IV (13:13)
[2024-08-22] MEDS: VIBRAMYCIN 260 MG IV (13:14)
--- NOTE | 2024-08-22 13:15 | PTCARENOTE ---
Rec'd pt at approx 1215 s/p code. Pt intubated, spontaneously opens eyes, nods head appropriately to questions. Follows commands, KNIGHT. Reaching for ETT, soft wrist restraints applied. Monitor SR 60-80's. SBP 70-80's on arrival to ICU, Levophed gtts
started, currently infusing at 12mcg/min. CHG bath completed, labs drawn and sent-difficult stick. Therm dubon inserted, draining yellow urine. IR at bedside at this time to place [facility]J TLC.
[2024-08-22] MEDS: NOVOLOG FLEXPEN-HIGH RESISTANCE 10 UNITS SC (13:16)
--- NOTE | 2024-08-22 13:32 | W.PN.CD ---
Today's Communication / Plan
-
Echo pending
Holding anti-HTN meds and lasix
Continue supportive care
Impression / Plan
-
Cardiac arrest
- presumed hypoxic
- ECG shows unchanged lateral ST changes
- Echocardiogram preliminarily shows severe LV dysfunction with basal hypo/dyskinesis and apical more preserved function
- she follows simple commands after ~ 20 mins of downtime during which high quality CPR was performed
- Abx for sepsis
- pressor support and weaning vent as able
[id number] HFrEF:
- can hold IV lasix for today given hypotension
-recent echo as noted
Abnormal troponin:
-likely acute non-ischemic myocardial injury in setting of CHF, NARCISO, anemia, hypoxemia
-denies any CP
-peak 2.3 troponin ischemic evaluation at some point, outpatient vs inpatient
CAD with CABG and stenting:
-denies any CP
-On ASA- continue, as well as statin and BB- continue
ICM:
-EF 40%, likely severely reduced based off POCUS
-GDMT on hold given requirement of pressors
PAF:
-stable in SR
-on amiodarone and Eliquis
- cont Eliquis
Anemia:
-denies blood in urine or stool, but has black stool since on iron
-Eliquis as above
-w/u per primary team
NARCISO:
-Cr 2.0 likely 2/2 worsening sepsis and hypotension
Hyperkalemia:
-monitor with diuresis
SQ ICD is in place
Data:
Cath 01/17/21: Severe [place] triple-vessel CAD as described with patent PAIGE-LAD and patent but severely diseased SVG-OM2. In addition to the severe disease in the vein graft, there is new significant mid LAD disease distal to the XAVIER graft
touchdown site. Successful stenting of 90% mid body SVG-OM2 graft lesion using 4.0 x 23 Xience Estefania GEO. Successful stenting of 60% distal SVG-OM2 graft lesion using 4.0 x 12 Xience Estefania GEO.
Physical Exam
Vital Signs/Labs
Vital Signs
Temp Pulse Resp BP Pulse Ox
97.8 F 72 15 135/60 98
08/22/24 13:03 08/22/24 13:00 08/22/24 13:00 08/22/24 12:45 08/22/24 13:02
08/21/24 08/22/24 08/23/24
06:59 06:59 06:59
Actual Weight 174 lb 9.698 oz
08/22/24 12:44
08/22/24 12:44
PT 17.7 Sec (11.4-14.6) H 08/22/24 12:44
INR 1.40 08/22/24 12:44
Magnesium 2.5 mg/dl (1.6-2.3) H 08/22/24 12:44
08/21/24
10:19
[id number]-Hmjdgveexjo Pept 28634
LAB Results
08/21/24 08/21/24 08/21/24
10:19 13:20 17:53
Troponin I 1.640 H* 1.990 H* 2.360 H*
08/21/24 08/22/24 08/22/24
22:06 00:19 06:00
Troponin I Cancelled 2.100 H* Cancelled
Physical Exam
Constitutional: Other (intubated sedated )
EENT: Moist mucous membranes
Cardiovascular: Rhythm & rate is regular
Respiratory: Other (intubtaed)
GI: Soft
Neuro/Psych: Other (sedated)
Data Reviewed
-
Date of Service: August 22, 2024
Medical Decision Making: Reviewed Test Results and Tests Ordered
EKG: Tracing Personally Visualized and interpreted
Echo: Tracing Personally Visualized and interpreted
Labs: Labs Reviewed by me
Critical Care Time (in minutes): 48
[2024-08-22 13:57] LABS: Urine Albumin 2+ (Neg - Trace); Urine Bilirubin Negative (Negative); Urine Character Clear (Clear); Urine Color Yellow; Urine Glucose 1+ (Negative); Urine Ketone Negative (Negative); Urine Leukocyte Trace (Negative); Urine Nitrite Negative (Negative); Urine Occult Blood 2+ (Negative); Urine Specific Gravity 1.015 (<1.030); Urine Urobilinogen Negative (Neg - 1+)
[2024-08-22 14:06] LABS: Urine Squamous Cell >30 /LPF (Few)
[2024-08-22 14:08] LABS: Urine White Cell 16-20 /HPF (0-5)
[2024-08-22 14:09] LABS: Urine Bacteria Moderate (Negative)
--- NOTE | 2024-08-22 14:31 | CARDSERVDEF ---
Echocardiogram with Definity completed after protocol screening completed. Allergies verified.
Patent IV site: LEFT ANTICUBE__
IV site flushed with 0.9% NaCl pre and post administration.
Diluted bolus method utilized to enhance visualization of ventricular bass.
Total volume given: _4__ mL
Patient tolerated all procedures well without complications.
[2024-08-22 14:44] LABS: B.E. 2.3 mmol/L; HCO3 27.3 mmol/L (21-28); O2 Saturation % 99.3 % (94-98); PCO2 43 mmHg (32-35); PO2 98 mmHg (83-108); pH 7.41 (7.35-7.45)
[2024-08-22] MEDS: 0.45%NACL 1000 IV (14:48)
--- NOTE | 2024-08-22 14:59 | PTCARENOTE ---
at bedside, updated. Levophed gtts titrated off. RIJ TLC with +placement per PCXR. ECHO completed at bedside.
--- NOTE | 2024-08-22 15:12 | W.PN.HOSP.TC ---
Today's Communication/Plan
-
Continue critical care
Wean pressors as able
Hold diuretics
Assessment / Plan
Assessment / Plan
Gen-awake, alert, intubated, obese
HEENT-NC, AT, anicteric, clear oral mm
Neck-supple
CV-reg, no M, +S1/S2
Lungs-clear B/L
Abd-soft, NT, ND
Ext-no edema
Musculoskeletal-no cyanosis, clubbing
Skin-warm and dry
Neuro-grossly non-focal
Psych-calm, cooperative
In-hospital cardiac arrest -presumably hypoxic etiology given description by nursing that she walked to the bathroom and came back and did not have her oxygen on. Became bradycardic and subsequently went into PEA arrest. High-quality CPR
performed, cardiology at the bedside running the code. Intubated and transferred to ICU today. Received multiple doses of epinephrine with ROSC.
Currently on Levophed infusion at 4 mcg/min, wean down as able. Continue IV fluid support.
Shock -cardiogenic versus septic versus other. Continue Levophed as above, wean down as able. Getting IV fluids. Diuretics on hold.
Acute hypoxic respiratory failure -was on 4 L nasal cannula this morning but now intubated on the ventilator after cardiac arrest today. Etiology of respiratory failure likely multifactorial including acute heart failure, cardiac arrest, etc. Rule
out pneumonia. Chest x-ray demonstrates possible right-sided lung opacity, cannot rule out aspiration pneumonia versus pneumonitis related to cardiac arrest today, atelectasis also possible.
Pool Hand has initiated antibiotics for community-acquired pneumonia.
Acute on chronic heart failure with reduced EF - Echocardiogram done today after cardiac arrest demonstrates LVEF 30%, diffuse hypokinesis, normal RV size with reduced systolic function, moderate MR. Previous LVEF was noted to be 40%. RV systolic
dysfunction is new compared to previous.
Hold IV Lasix per cardiology. Admission BNP 23,600.
NARCISO on CKD 3B -baseline creatinine 1.4. Creatinine was 2.1 on admission, 2.0 today. Monitor closely. Etiology of NARCISO possibly due to cardiorenal syndrome from acute heart failure. Entresto on hold.
Troponin elevation -presumably acute nonischemic myocardial injury. Patient never had complaints of chest pain according to cardiology.
Hyperkalemia -resolved.
Hyponatremia -resolved.
DM2 with hyperglycemia -hemoglobin A1c 9.0%. Glucose 195 this morning. At home she is on glimepiride 4 mg daily, Lantus 35 units daily, Lantus 20 units at bedtime.
In the hospital she is on Lantus and high resistance aspart scale. Hold glimepiride in the hospital.
PAD -history of right lower extremity stenting.
CAD/CABG -CABG in 1997, four-vessel. With prior stents.
Paroxysmal atrial fibrillation -continue amiodarone, Eliquis.
Essential hypertension -currently in shock requiring vasopressors.
Acute anemia -baseline hemoglobin 12 in June, admission hemoglobin 9.7. 9.5 today. Monitor on anticoagulation.
Hyperlipidemia -on atorvastatin.
Hypothyroidism - levothyroxine.
History of GI bleed -history of Dieulafoy lesion status post clipping. History of ruptured duodenal vein in 2014.
Obesity due to excess calories
full code
Anticipated Discharge: > 48 hours
Subjective/Interval History
-
Date of Service: August 22, 2024
Patient seen during cardiac arrest event and subsequently seen and examined in the ICU after transfer.
Currently intubated but awake and following commands.
Objective Data
-
Labs:
Laboratory Results
08/22/24 08/22/24 08/22/24
08:06 11:54 12:43
WBC 10.8
Hgb 10.0 L
Hct 29.4 L
Plt Count 236
PT
INR
HCO3 Cancelled 13.4 L*
Sodium 135
Potassium 4.7
Chloride 98
Carbon Dioxide 26
BUN 66 H
Creatinine 1.8 H
Glucose 195 H
Calcium 9.2
Total Bilirubin 0.5
AST 34
ALT 60 H
Alkaline Phosphatase 93
08/22/24 08/22/24 08/22/24
12:44 12:44 12:44
WBC 14.6 H
Hgb 9.5 L
Hct 30.1 L
Plt Count 261
PT 17.7 H
INR 1.40
HCO3
Sodium 135 Cancelled
Potassium 4.9 Cancelled
Chloride 95 L
Carbon Dioxide
BUN
Creatinine
Glucose
Calcium
Total Bilirubin
AST
ALT
Alkaline Phosphatase
08/22/24 08/22/24 08/22/24
12:44 12:44 12:44
WBC
Hgb
Hct
Plt Count
PT
INR
HCO3
Sodium
Potassium
Chloride Cancelled
Carbon Dioxide 30 Cancelled
BUN 64 H Cancelled
Creatinine 2.0 H
Glucose
Calcium
Total Bilirubin
AST
ALT
Alkaline Phosphatase
08/22/24 08/22/24 08/22/24
12:44 12:44 12:44
WBC
Hgb
Hct
Plt Count
PT
INR
HCO3
Sodium
Potassium
Chloride
Carbon Dioxide
BUN
Creatinine Cancelled
Glucose 329 H Cancelled
Calcium 8.8 Cancelled
Total Bilirubin 0.6
AST
ALT
Alkaline Phosphatase
08/22/24 08/22/24 08/22/24
12:44 12:44 12:44
WBC
Hgb
Hct
Plt Count
PT
INR
HCO3
Sodium
Potassium
Chloride
Carbon Dioxide
BUN
Creatinine
Glucose
Calcium
Total Bilirubin Cancelled
AST 246 H Cancelled
ALT 225 H Cancelled
Alkaline Phosphatase 91
08/22/24 08/22/24
12:44 14:36
WBC
Hgb
Hct
Plt Count
PT
INR
HCO3 27.3
Sodium
Potassium
Chloride
Carbon Dioxide
BUN
Creatinine
Glucose
Calcium
Total Bilirubin
AST
ALT
Alkaline Phosphatase Cancelled
Vital Signs:
Vital Signs
Temp Pulse Resp BP Pulse Ox
97.8 F 68 17 149/65 97
08/22/24 13:03 08/22/24 14:00 08/22/24 14:00 08/22/24 14:00 08/22/24 14:00
I&O
08/21/24 08/22/24 08/23/24
06:59 06:59 06:59
Intake Total 290 / 290
Balance 290 / 290
Review of Systems
-
Unable to obtain full review of systems at this time due to: Acuity and Patient Intubation
--- NOTE | 2024-08-22 15:39 | CHAP ---
Responded to overhead code. Provided emotional and spiritual support to , Hitesh, who was sitting outside the room, tearful. Donna is his 'reason for living.' We prayed for her recovery while the med team worked, and later followed her to
ICU. I waited with Hitesh in the Respite room, where he shared more about Donna, about their life together, and their family. We read from Scripture. After Dr. Bruner spoke with Hitesh, a prayer blanket and a lunch box were provided, along
with assurance of our on-going availability.
[2024-08-22] MEDS: NOVOLOG FLEXPEN-HIGH RESISTANCE 7 UNITS SC (17:14)
[2024-08-22 17:24] LABS: Glucose - Point of Care 253 mg/dl (70-99)
--- NOTE | 2024-08-22 20:22 | W.PN.UPDATE ---
Update Note
Progress Note Update
2014- Spoke with Dr. 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 Unclear when she will be able to resume Eliquis patient is intubated, will initiate heparin gtt for now PE/DVT protocol. Orders placed
and RN updated. Will hold antihypertensives now since patient is on vasopressors, per cardiology.
[2024-08-22 21:13] LABS: Hemoglobin 8.7 g/dL (12.0-16.0); Mean Corp Hgb Conc. 33.5 g/dL (33.0-37.0); Mean Corpuscular Volume 98.5 fL (81.0-99.0); Mean Platelet Volume 10.1 fL (7.4-10.4); Platelet Count 244 10^3/uL (130-400); Red Blood Cell Count 2.64 10^6/uL (4.20-5.40); Red Cell Dist. Width 13.9 % (11.5-14.5); White Blood Cell Count 8.5 10^3/uL (4.8-10.8)
[2024-08-22] MEDS: HEPARIN 25000 UNITS/250 ML IV (21:27)
[2024-08-22 21:42] LABS: APTT 29.6 Sec (23.4-35.0)
[2024-08-22] MEDS: COREG PO (21:58)
[2024-08-22] MEDS: LIPITOR PO (21:59)
[2024-08-22] MEDS: ELIQUIS PO (22:02)
[2024-08-22 22:23] LABS: Glucose - Point of Care 91 mg/dl (70-99)
[2024-08-22] MEDS: LANTUS SC (23:49)
[2024-08-22] MEDS: LANTUS 0.1 UNITS SC (23:50)
[2024-08-23] VITALS (49 sets, daily range): BP systolic 104–151; BP diastolic 41–89; PULSE 2–82; BMI 31.0
[2024-08-23] MEDS: NOVOLOG FLEXPEN-HIGH RESISTANCE SC ×2 (00:47→06:55)
[2024-08-23 00:55] LABS: Glucose - Point of Care 73 mg/dl (70-99)
--- NOTE | 2024-08-23 01:29 | PTCARENOTE ---
Assessed. Pt appears comfortable and sleeping when no one is present in the room. Pt becomes anxious when someone is present. She is able to nod y/n and attempts to vocalize needs. Pt moves all extremities. PERRLA 3. Pt has had fent IVP and
increases in fent gtt rate as ordered. Geneeralized edema noted throughout. Pulses palpable x4. skin cool and pale. Pt tolerating vent while sleeping but attempts to bite tube when awake. Pt has been sx for thin clear secretions. Does not tolerate
well. Abd soft nontender. Rivera draining clear yellow. No open areas noted on skin. BS check @ [id number] was 91. 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 Pt was ordered 20 units which was changed to 10 units. @ 0000hrs BS check was 73. Discussed
with RO[employer]ING TRUCK DRIVER who stated no change in pt regimen. No s/s of distress assessed. Will continue to monitor.
[2024-08-23] MEDS: VIBRAMYCIN 260 MG IV ×2 (02:28→14:39)
[2024-08-23 02:49] LABS: Glucose - Point of Care 81 mg/dl (70-99)
[2024-08-23] MEDS: ATIVAN 0.5 MG IV (03:55)
[2024-08-23 04:05] LABS: % Basophils 0.2 % (0-2); % Eosinophils 0.1 % (0-6); % Immature Granulocytes 0.3 % (0-0.5); % Monocytes 9.1 % (1.7-9.3); % Neutrophils 77.3 % (42.2-75.2); Absolute Lymphocytes 1.2 10^3/uL (1.2-3.4); Absolute Monocytes 0.8 10^3/uL (0.1-0.6); Hematocrit 25.1 % (37.0-47.0); Hemoglobin 8.3 g/dL (12.0-16.0); Mean Corp Hgb Conc. 33.1 g/dL (33.0-37.0); Mean Corpuscular Hgb 32.5 pg (27.0-31.0); Mean Corpuscular Volume 98.4 fL (81.0-99.0); Mean Platelet Volume 10.4 fL (7.4-10.4); Nucleated Red Blood Cells % 0 %; Platelet Count 259 10^3/uL (130-400); Red Blood Cell Count 2.55 10^6/uL (4.20-5.40); Red Cell Dist. Width 13.9 % (11.5-14.5)
[2024-08-23 04:33] LABS: ALT (SGPT) 169 U/L (0-35); AST (SGOT) 112 U/L (14-36); Alkaline Phosphatase 85 U/L (38-126); Blood Urea Nitrogen 66 mg/dl (7-17); Calcium 8.4 mg/dl (8.4-10.2); Carbon Dioxide 27 mmol/L (22-30); Chloride 101 mmol/L (98-107); Estimated Creatinine Clearance 24 ml/min; Glucose 53 mg/dl (70-99); Magnesium 2.1 mg/dl (1.6-2.3); Potassium 3.6 mmol/L (3.5-5.1); Sodium 138 mmol/L (135-145); Total Bilirubin 0.4 mg/dl (0.2-1.3); Total Protein 5.5 g/dl (6.3-8.2); eGFR 27.78
[2024-08-23] MEDS: NSS (PRESERVATIVE FREE) 0.25 ML IV (04:43)
[2024-08-23] MEDS: DEXTROSE 50% SYRINGE 12.5 GRAMS IV (04:43)
[2024-08-23] MEDS: SUBLIMAZE 50 MCG IV ×2 (05:22→07:05)
[2024-08-23 05:33] LABS: B.E. 1.6 mmol/L; HCO3 26.6 mmol/L (21-28); O2 Saturation % 94.2 % (94-98); PCO2 43 mmHg (32-35); PO2 65 mmHg (83-108)
[2024-08-23 05:40] LABS: Glucose - Point of Care 137 mg/dl (70-99)
[2024-08-23] MEDS: SUBLIMAZE 100 IV (06:01)
[2024-08-23] MEDS: 0.45%NACL 1000 IV (06:05)
[2024-08-23] MEDS: SYNTHROID PO (07:02)
--- NOTE | 2024-08-23 07:41 | W.PN.INTV ---
Today's Communication / Plan
Recommendations
Continue heparin therapy for now. Await bilateral lower extremity Dopplers
Lasix therapy
Amiodarone continues
Cardiology following
Difficult to differentiate between pneumonia patchy heart failure. Would continue antibiotics
Hope for extubation later today
Assessment
-
83-year-old female with history of coronary disease distant bypass surgery 1997, atrial fibrillation on amiodarone and Eliquis at 2.5 mg twice a day who presents with 2 to 3-week history of shortness of breath. Cording to Yashira, patient
refused evaluation but was seen as a routine visit by primary 08/21 was instructed to go to the ED. Found to be hypoxic, thought to be heart failure with elevated troponin. Also found to be anemic. On 08/22 developed cardiac arrest followed by 20
minutes of high-quality CPR with ROSC, intubated and transferred to ICU 08/22
Acute hypoxic respiratory failure
Intubated 08/22
Code 9, 20 minutes high-quality CPR (Epi x 5, Atropine x 1, bicarb, IVF, intubated)
Bilateral patchy infiltrates, suspected right upper lobe consolidation
Pneumonia versus patchy heart failure
COVID, influenza negative at time of admission
Shortness of breath x 3 weeks
History of falls, syncope
Twice in the last 3 weeks
Anemia, hemoglobin 9.5
Leukocytosis
Acute renal insufficiency, creatinine 2.1
Baseline 1.4-1.6
Acute transaminitis, likely secondary to cardiac arrest
Conditions present prior to admission
History of CKD baseline creatinine 1.4
History of syncope, suspected orthostasis per outpatient records
Atrial fibrillation on Eliquis 2.5 mg twice a day
Coronary disease history of bypass surgery
s/p [facility] 01/17/2021: Successful stenting of mid SVG OM2 graft and distal SVG to OM 2 graft
History of heart failure, elevated filling pressures per catheterization 2020
History of stroke 1997
GERD/peptic ulcer disease
Diabetes
Hypertension/hyperlipidemia
Hypoxia on home oxygen, details unclear
Distant tobacco history
Plan/recommendations
At this time, patient remains critically ill, ventilator dependent. However she has made some progress over the last 12 to 24 hours, more awake, moving all extremities
Blood sugars 53, improved 137 fingerstick
Potassium 3.6
Salient features include hypoxic event with cardiac arrest with ROSC following high-quality CPR
Chest x-ray with bilateral patchy infiltrates suggestive of possible right upper lobe pneumonia
Patient has had 2 to 3 weeks of shortness of breath per
Moving forward
Proceed with SBT
Airway pressures on volume-cycled ventilation adequate, plateau pressure 22
Check ABG post SBT, and hope for extubation today
Empiric antibiotics for presumed pneumonia, community-acquired
Cultures pending
Dopplers negative for DVT left upper extremity (I ordered lower extremity). Reordered
Echocardiogram with LV and RV dysfunction, EF 30%. Progressive per report
Cardiology following
Remains on aspirin, Eliquis
Will give dose of Lasix this morning. Reviewed with cardiology
Chest x-ray may be consistent with patchy heart failure however there may be a right upper lobe infiltrate per my review
No white count, no fevers
For now continue antibiotics
Differential also includes thromboembolic process
Less likely given resolution
Patient on chronic Eliquis therapy although 2.5 mg twice a day
Heparin therapy started as of yesterday
Patient with history of syncope which appears to be chronic upon reviewing outpatient records
Thought to be due to orthostasis
DVT prophylaxis: Was on Eliquis 2.5 mg twice a day, heparin drip started. Mechanical prophylaxis as well
GI prophylaxis: Protonix
Reviewed at length with critical care nursing, respiratory care, cardiology, primary service
Updated at length
TCCT 35 min
Subjective Dataa
Subjective Data
Date of Service:
Date of Service: August 23, 2024
Subjective:
Patient remains critically ill, off pressors as of yesterday p.m. Remains on ventilator. Patient does complain of shortness of breath and pain with deep breathing likely secondary to CPR. Low blood sugar this morning noted, improved on
fingerstick. Remains on fentanyl. at bedside
Objective Data
Data Reviewed
Vital Signs / I&O / Oxygen:
Vital Signs
Temp Pulse Resp BP Pulse Ox
99.1 F 68 13 113/59 98
08/23/24 07:00 08/23/24 07:00 08/23/24 07:00 08/23/24 07:00 08/23/24 07:24
Intake and Output
08/22/24 08/23/24 08/24/24
06:59 06:59 06:59
Intake Total 5315.8 / 5315.8
Output Total 1490 / 1490
Balance 3825.8 / 3825.8
SaO2 [A/C] 96
SaO2 98
Nasal Cannula flow liters per 4
minute
Physical Exam
General: Comfortable and Other (Right IJ)
HEENT: Normocephalic
Cardiovascular: S1-S2, Regular Rhythm, Murmur (n) and Rub (n)
Respiratory: Wheeze (n), Crackles (Few scattered), Rhonchi (n) and Non-Labored Respirations
GI: Soft, Non Distended and Non Tender
Neurology: Awake, Alert and No Motor Deficits (Follows commands, nods appropriately)
Skin: Cyanosis (n), Jaundice (n) and Rash (n)
Labs/Micro/Reports
Lab Data
08/23/24 03:36
08/23/24 03:36
Laboratory Results
08/22/24 08/22/24 08/22/24
11:54 12:43 12:44
PT 17.7 H
INR 1.40
APTT
pH Cancelled 7.19 L*
pCO2 Cancelled 35
pO2 Cancelled 37 L*
HCO3 Cancelled 13.4 L*
O2 Delivery Level Cancelled
08/22/24 08/22/24 08/22/24
14:36 21:06 21:23
PT
INR
APTT Cancelled 29.6
pH 7.41
pCO2 43 H
pO2 98
HCO3 27.3
O2 Delivery Level
08/23/24 08/23/24
03:36 05:23
PT
INR
APTT 78.0 H
pH 7.40
pCO2 43 H
pO2 65 L
HCO3 26.6
O2 Delivery Level
Microbiology
08/22/24 13:37 Endotracheal Gram Stain - Preliminary
08/21/24 11:51 Nasal Swab Influenza Types A & B (THERESE) - Final
Negative for Influenza A & B, NAAT
Negative results must be combined with clinical observations
and patient history.
Nucleic Acid Amplification test (NAAT)performed on the
[employer] platform.
08/21/24 10:19 Nasal Swab Influenza Types A & B (THERESE) - Final
Test repeatedly invalid.
Nucleic Acid Amplification test (NAAT)performed on the
[employer] platform.
--- NOTE | 2024-08-23 07:41 | W.PN.HOSP.TC ---
Today's Communication/Plan
-
Stop Lantus
Change corrective insulin scale
Assessment / Plan
Assessment / Plan
Gen-awake, alert, intubated, obese
HEENT-NC, AT, anicteric, clear oral mm
Neck-supple
CV-reg, no M, +S1/S2
Lungs-clear B/L
Abd-soft, NT, ND
Ext-no edema
Musculoskeletal-no cyanosis, clubbing
Skin-warm and dry
Neuro-grossly non-focal
Psych-calm, cooperative
In-hospital cardiac arrest -presumably hypoxic etiology given description by nursing that she walked to the bathroom and came back and did not have her oxygen on. Became bradycardic and subsequently went into PEA arrest. High-quality CPR
performed, cardiology at the bedside running the code. Intubated and transferred to ICU 08/22. Received multiple doses of epinephrine with ROSC.
Shock -cardiogenic versus septic versus other. Off vasopressors. Shock resolved. Doubt infection at this point in time and recommend stopping antibiotics if okay with stator tester.
Acute hypoxic respiratory failure -was on 4 L nasal cannula this morning but now intubated on the ventilator after cardiac arrest today. Etiology of respiratory failure likely multifactorial including acute heart failure, cardiac arrest, etc. Rule
out pneumonia. Chest x-ray demonstrates possible right-sided lung opacity, cannot rule out aspiration pneumonia versus pneumonitis related to cardiac arrest today, atelectasis also possible.
Recovery Operator Helper has initiated antibiotics for community-acquired pneumonia.
Acute on chronic heart failure with reduced EF - Echocardiogram done today after cardiac arrest demonstrates LVEF 30%, diffuse hypokinesis, normal RV size with reduced systolic function, moderate MR. Previous LVEF was noted to be 40%. RV systolic
dysfunction is new compared to previous.
Admission BNP 23,600. Resume IV Lasix if okay with cardiology.
NARCISO on CKD 3B -baseline creatinine 1.4. Creatinine starting to come down, 1.8 today. Monitor closely. Etiology of NARCISO possibly due to cardiorenal syndrome from acute heart failure. Entresto on hold.
Acute ischemic hepatitis -elevated transaminases likely due to cardiac arrest, shock.
Troponin elevation -presumably acute nonischemic myocardial injury. Patient never had complaints of chest pain according to cardiology.
Hyperkalemia -resolved.
Hyponatremia -resolved.
DM2 with hyperglycemia/hypoglycemia - hemoglobin A1c 9.0%. Glucose 53 this morning. At home she is on glimepiride 4 mg daily, Lantus 35 units daily, Lantus 20 units at bedtime. Hold glimepiride in the hospital.
Stop Lantus, change corrective insulin to low resistance scale.
PAD -history of right lower extremity stenting.
CAD/CABG -CABG in 1997, four-vessel. With prior stents.
Paroxysmal atrial fibrillation -continue amiodarone, now on IV heparin. Resume Eliquis prior to discharge.
Essential hypertension -currently in shock requiring vasopressors.
Acute anemia -baseline hemoglobin 12 in June, admission hemoglobin 9.7, hemoglobin 8.3 today. Monitor on anticoagulation.
Hyperlipidemia -on atorvastatin.
Hypothyroidism - levothyroxine.
History of GI bleed -history of Dieulafoy lesion status post clipping. History of ruptured duodenal vein in 2014.
Obesity due to excess calories
full code
Anticipated Discharge: > 48 hours
Subjective/Interval History
-
Date of Service: August 23, 2024
Patient seen and examined. Remains intubated in ICU. Following commands.
Objective Data
-
Labs:
Laboratory Results
08/22/24 08/22/24 08/23/24
21:06 21:23 03:36
WBC 8.5 9.0
Hgb 8.7 L 8.3 L
Hct 26.0 L 25.1 L
Plt Count 244 259
APTT Cancelled 29.6 78.0 H
HCO3
Sodium 138
Potassium 3.6 D
Chloride 101
Carbon Dioxide 27
BUN 66 H
Creatinine 1.8 H
Glucose 53 L*
Calcium 8.4
Total Bilirubin 0.4
AST 112 H
ALT 169 H
Alkaline Phosphatase 85
08/23/24
05:23
WBC
Hgb
Hct
Plt Count
APTT
HCO3 26.6
Sodium
Potassium
Chloride
Carbon Dioxide
BUN
Creatinine
Glucose
Calcium
Total Bilirubin
AST
ALT
Alkaline Phosphatase
Vital Signs:
Vital Signs
Temp Pulse Resp BP Pulse Ox
99.1 F 68 13 113/59 98
08/23/24 07:00 08/23/24 07:00 08/23/24 07:00 08/23/24 07:00 08/23/24 07:24
I&O
08/22/24 08/23/24 08/24/24
06:59 06:59 06:59
Intake Total 5315.8 / 5315.8
Output Total 1490 / 1490
Balance 3825.8 / 3825.8
Review of Systems
-
Unable to obtain full review of systems at this time due to: Acuity and Patient Intubation
[2024-08-23 07:43] LABS: Glucose - Point of Care 111 mg/dl (70-99)
[2024-08-23] MEDS: VITAMIN C PO (08:31)
[2024-08-23] MEDS: PACERONE PO (08:31)
[2024-08-23] MEDS: ASPIR LOW (ENTERIC COATED) PO (08:31)
[2024-08-23] MEDS: THERAGRAN PO (08:31)
--- NOTE | 2024-08-23 08:40 | PTCARENOTE ---
Rec'd pt at 0700. Pt anxious/agitated on vent, banging hands on siderails and biting ETT, pox dropping to 59%. Bite block placed, PRN Fentanyl given. Pt calmer, pox up to 98%. Monitor SR 60's. 0740-pt placed on SBT 5/5/40%, Fentanyl gtts titrated
off. +BS, abd soft/nt. Rivera draining kermit urine. at bedside, updated.
[2024-08-23] MEDS: LASIX 40 MG IV ×2 (08:42→16:02)
[2024-08-23 09:28] LABS: B.E. 2.3 mmol/L; HCO3 27.3 mmol/L (21-28); O2 Saturation % 97.1 % (94-98); PCO2 43 mmHg (32-35); PO2 81 mmHg (83-108); pH 7.41 (7.35-7.45)
[2024-08-23 09:33] LABS: Glucose - Point of Care 102 mg/dl (70-99)
--- NOTE | 2024-08-23 09:51 | PTCARENOTE ---
Dr. Bruner aware of ABG results, in to assess pt. Pt extubated to 50%VM at 0935, pox 93%. at bedside. Pt repositioned in chair position, encouraged to deep breathe.
[2024-08-23 10:03] LABS: APTT 94.8 Sec (23.4-35.0)
--- NOTE | 2024-08-23 11:00 | PTCARENOTE ---
pt 93% on Ventimask , she was complaining of SOB and chest pain with taking deep breaths the pain is reproducible , she was placed on bipap as ordered PRN , her sats up to 100% , in room , pt is alert and oriented , NSR on monitor BP 144/67
--- NOTE | 2024-08-23 11:30 | CHAP ---
Donna was awake and alert - she said that a prayer would be appreciated. I asked God's blessings for her continued recovery, giving thanks for her good progress. Prayed also for , Hitesh, faithfully at her side.
[2024-08-23] MEDS: NOVOLOG FLEXPEN-LOW RESISTANCE SC (11:48)
--- NOTE | 2024-08-23 11:48 | W.PN.CD ---
Today's Communication / Plan
-
IV diuresis
wean vent as able
Abx and supportive care
holding Eliquis for now heparin gtt
Impression / Plan
-
Cardiac arrest
- presumed hypoxic
- ECG shows unchanged lateral ST changes
- Echocardiogram below
- she follows simple commands after ~ 20 mins of downtime during which high quality CPR was performed
- Abx for sepsis
- pressor support and weaning vent as able
Msonf-zg-[id number] HFrEF:
- IV lasix bid today
Abnormal troponin:
-will need ischemia eval at some point given reduced EF
CAD with CABG and stenting:
- ischemic eval at some point
-On ASA- continue, as well as statin and BB- continue
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
-Echo as below
-GDMT on hold given requirement of pressors
- cont amio and aspirin statin
PAF:
-stable in SR
-on amiodarone
- now heparin gtt holding Eliquis
Anemia:
-denies blood in urine or stool, but has black stool since on iron
-Eliquis as above
-w/u per primary team
NARCISO:
-Cr 2.0 likely 2/2 worsening sepsis and hypotension
Hyperkalemia:
-monitor with diuresis
SQ ICD is in place
Subjective: intubated but following simple commands
Data:
Cath 01/17/21: Severe [place] triple-vessel CAD as described with patent PAIGE-LAD and patent but severely diseased SVG-OM2. In addition to the severe disease in the vein graft, there is new significant mid LAD disease distal to the XAVIER graft
touchdown site. Successful stenting of 90% mid body SVG-OM2 graft lesion using 4.0 x 23 Xience Setefania GEO. Successful stenting of 60% distal SVG-OM2 graft lesion using 4.0 x 12 Xience Estefania DES.
Physical Exam
Vital Signs/Labs
Vital Signs
Temp Pulse Resp BP Pulse Ox
99.1 F 85 14 132/74 92
08/23/24 07:00 08/23/24 09:45 08/23/24 09:45 08/23/24 09:30 08/23/24 09:45
08/22/24 08/23/24 08/24/24
06:59 06:59 06:59
Actual Weight 174 lb 9.698 oz 175 lb 0.752 oz
08/23/24 03:36
08/23/24 03:36
PT 17.7 Sec (11.4-14.6) H 08/22/24 12:44
INR 1.40 08/22/24 12:44
APTT 94.8 Sec (23.4-35.0) H 08/23/24 09:22
Magnesium 2.1 mg/dl (1.6-2.3) 08/23/24 03:36
08/21/24
10:19
Hsp-X-Cwmteedefch Pept 36693
LAB Results
08/21/24 08/21/24 08/21/24
10:19 13:20 17:53
Troponin I 1.640 H* 1.990 H* 2.360 H*
08/21/24 08/22/24 08/22/24
22:06 00:19 06:00
Troponin I Cancelled 2.100 H* Cancelled
Physical Exam
Constitutional: No acute distress and Other (intubated)
EENT: Anicteric
Cardiovascular: Rhythm & rate is regular
Respiratory: Other (b/l rhonchi )
GI: Soft
Neuro/Psych: Alert and Oriented
Data Reviewed
-
Date of Service: August 23, 2024
Medical Decision Making: Reviewed Test Results
EKG: Tracing Personally Visualized and interpreted (sr)
Labs: Labs Reviewed by me
[2024-08-23] MEDS: FEOSOL PO (11:49)
[2024-08-23 11:58] LABS: Glucose - Point of Care 144 mg/dl (70-99)
[2024-08-23] MEDS: KCL 50 IV (12:26)
--- NOTE | 2024-08-23 14:00 | PTCARENOTE ---
pt now on 6L NC with sats 98% , she is conversing with her family , she continues to complain of pain at chest and sternal with inspiration , Dr Galindo aware of pts pain orders for Roxicodone , pt is also asking to eat and drink she does have a
weak non prod cough , she is now ordered for speech eval for swallowing
--- NOTE | 2024-08-23 14:16 | CM ---
CM following re: discharge planning.
Reviewed pt's chart, met with pt. Pt's , brother and sister in law at bedside.
Pt is an 83 year old female, admitted with primary dx of Acute hypoxic respiratory failure. Intubated yesterday 08/22, extubated this morning to 6L NC of O2, continue supportive care.
Pt reports she lives with 2SH, 3 steps to enter, has a son who lives in [place]. Pt reports she ambulates with a walker, has a cane.
PT and OT will evaluate the pt when clinically appropriate to determine a level of care at discharge.
PCP: Evan Cano
Pharmacy: [facility].
D/c plan: will depend on PT/OT evaluations and recommendations.
CM will follow with discharge plan updates as hospitalization progresses
[2024-08-23] MEDS: ROCEPHIN 1000 MG IV (14:28)
[2024-08-23] MEDS: STERILE WATER FOR INJECTION 10 ML IV (14:29)
[2024-08-23] MEDS: ROXICODONE 5 MG PO (14:29)
[2024-08-23] MEDS: HEPARIN 25000 UNITS/250 ML IV (16:03)
--- NOTE | 2024-08-23 16:30 | PTOTSP ---
Speech Pathology
83F with admission for CHF exacerbation p/w s/s of an oropharyngeal dysphagia likely acute 2/2 recent intubation from 08/22-08/23. Pt with wet vocal quality and persistent cough with all trials this date. Recommend NPO at this time with SUPERVISOR COLOR MAKING to
reassess in the AM with the hopes to advance back to an oral diet.
Recommend:
1. NPO
2. Crush essential meds in puree
3. Aspiration Precautions
4. SUPERVISOR COLOR MAKING service to follow up re: advance diet as able
[2024-08-23] MEDS: NOVOLOG FLEXPEN-LOW RESISTANCE 1 UNITS SC ×2 (17:34→23:51)
[2024-08-23 17:47] LABS: Glucose - Point of Care 161 mg/dl (70-99)
--- NOTE | 2024-08-23 17:58 | PTCARENOTE ---
pt more comfortable with pain Meds , pt to remain NPO for now , oral Meds in applesauce as per speech therapy
[2024-08-23] MEDS: 0.45%NACL IV (19:42)
--- NOTE | 2024-08-23 20:00 | PTCARENOTE ---
rec`d pt at 1900 AAOx3 resting in bed. bipap on pt. settings 12/5 w/ 10L. +1 edema. SR on monitor. wet, coarse, crackle lung sounds. weak cough. POX mid 90s. thermy dubon. rt IJ with heparin gtt. call grant in reach, safe environment maintained.
[2024-08-23] MEDS: LIPITOR 80 MG PO (23:03)
[2024-08-23 23:42] LABS: Glucose - Point of Care 162 mg/dl (70-99)
[2024-08-24] VITALS (89 sets, daily range): BP systolic 55–159; BP diastolic 38–121; PULSE 2–92; BMI 32.1
[2024-08-24] MEDS: LASIX 40 MG IV ×3 (00:13→16:49)
--- NOTE | 2024-08-24 01:45 | PTCARENOTE ---
lasix given STAT dose. pt`s POX dipped into 80s. wet, coarse lung sounds.
[2024-08-24] MEDS: VIBRAMYCIN 260 MG IV ×2 (01:50→14:17)
[2024-08-24 04:38] LABS: APTT 115.2 Sec (23.4-35.0)
[2024-08-24 05:06] LABS: Glucose - Point of Care 220 mg/dl (70-99)
[2024-08-24 05:11] LABS: B.E. -5.1 mmol/L; HCO3 26.6 mmol/L (21-28); O2 Saturation % 99.3 % (94-98); PO2 159 mmHg (83-108)
[2024-08-24 05:13] LABS: O2 Therapy BIPAP; PCO2 96 mmHg (32-35); pH 7.05 (7.35-7.45)
[2024-08-24 05:15] LABS: Hematocrit 29.9 % (37.0-47.0); Hemoglobin 9.2 g/dL (12.0-16.0); Mean Corp Hgb Conc. 30.8 g/dL (33.0-37.0); Mean Corpuscular Hgb 32.6 pg (27.0-31.0); Mean Platelet Volume 10.8 fL (7.4-10.4); Platelet Count 364 10^3/uL (130-400); Red Blood Cell Count 2.82 10^6/uL (4.20-5.40); Red Cell Dist. Width 14.6 % (11.5-14.5); White Blood Cell Count 16.8 10^3/uL (4.8-10.8)
[2024-08-24] MEDS: SYNTHROID PO (05:27)
[2024-08-24] MEDS: NOVOLOG FLEXPEN-LOW RESISTANCE 2 UNITS SC (05:28)
[2024-08-24 05:36] LABS: ALT (SGPT) 159 U/L (0-35); AST (SGOT) 69 U/L (14-36); Alkaline Phosphatase 108 U/L (38-126); Blood Urea Nitrogen 68 mg/dl (7-17); Calcium 8.3 mg/dl (8.4-10.2); Carbon Dioxide 22 mmol/L (22-30); Chloride 101 mmol/L (98-107); Estimated Creatinine Clearance 21 ml/min; Glucose 178 mg/dl (70-99); Potassium 4.6 mmol/L (3.5-5.1); Sodium 139 mmol/L (135-145); Total Bilirubin 0.4 mg/dl (0.2-1.3); Total Protein 6.6 g/dl (6.3-8.2); eGFR 23.09
[2024-08-24] MEDS: SUBLIMAZE 100 MCG IV (05:43)
[2024-08-24] MEDS: SUBLIMAZE 100 IV (05:47)
--- NOTE | 2024-08-24 05:52 | W.PN.ANESINT ---
Anesthesia Intubation Note
- Intubation Note
Intubation Note:
Diagnosis: obtunded
Blade: Glidescope MAC 4
Tube Size: 7.5
Depth: 22cm
Side Taped: right
Drugs Used: propofol 30 mg
Grade View: I
EtCO2 Present: +
Atraumatic: yes
Attempts: 1
Insertion Start and Stop Time:
SaO2 Pre: 94
SaO2 Post: 99
Glidescope Used: yes
Other Airway Adjustments: no
Pre-Oxygenated: yes
Portable Chest X-Ray: to follow
RSI: no
Suctioned: yes - thick red
Bilateral Breath Sounds Confirmed: b/l equal
Vent Settings:
Settings per __X_Attending Physician
[2024-08-24] MEDS: LEVOPHED 250 IV ×2 (05:57→16:50)
--- NOTE | 2024-08-24 06:23 | W.PN.UPDATE ---
Update Note
Progress Note Update
08/24/24
0500- Called to bedside by RN patient less responsive. Patient not responsive to any noxious stimuli or verbal. STAT ABG obtained, showed acute hypercapnic respiratory failure pH 7.05, CO2 96 despite being on bipap. Patient's Hitesh
called and updatd, all questions answered, patient remains FULL CODE. DUST MILL OPERATOR called for intubation, noted to have red/pink frothy secretions in ETT. Chest xray obtained for ETT placement concerning for congestive heart failure. Lasix will be given
earlier (0800 dosage, there was additional dosage 40mg IV given during the night). Also note, patient did have CPR with probable rib fractures/injury from cardiac arrest, possible degree of rib splinting due to pain, which may have also contributed.
Sedation ordered per light sedation protocol propofol and fentanyl gtts and prn medications.
Patient not responsive, pupils non reactive, acute change in mental status, ordered Ctscan fo the head for evaluation of any intracranial abnormalities.
--- NOTE | 2024-08-24 07:27 | PTCARENOTE ---
went into pts room at 0400 and pt was unresponsive. pt still on BIPAP POX 94%. stat blood gas sent. pt then intubated w/ a 7.5 ett @25. vent settings: 20/450/100%/ 8 of peep. fent, prop and levo started. then turned off prop due to change in rhythm.
CT stat ordered. pt woke up in elevator on way to CT. nods head appropriately. at bedside.
[2024-08-24 08:11] LABS: Triglycerides 188 mg/dl (10-149)
[2024-08-24] MEDS: THERAGRAN PO (08:34)
[2024-08-24] MEDS: VITAMIN C PO (08:34)
[2024-08-24] MEDS: CLARITIN PO (08:34)
[2024-08-24] MEDS: FLUSH (NSS) 1 FLUSH IV ×2 (09:07→11:26)
--- NOTE | 2024-08-24 09:15 | PTCARENOTE ---
Rec'd pt at 0700 just returning back from CT scan. Rec'd pt sedated on Fentanyl at 25 mcg- on that dose pt opens eyes to command. Nods head and KNIGHT. Handgrasps are strong. Admits to breathing tube hurting her. Dr. Fernando in an per MD request
Fentanyl gtt dc'd at 0900 and will use PRN Fentanyl. Skin is pale and cool- temp at 0800 was 94.9 core- placed on Camron Hugger at 0845 with temp of 95.1 core. Pt with ecchymosis mid chest (pt did have 08/21). Respirs are intact on the vent.- #7.5 ETT
retaped at the 25 cm harini center of the mouth. Suctioned for small amt of bloody secretions. Vent settings AC 20, tv 450, peep 8 Fio2 50% sats are 95-98%. Adds an occasional additional breath or 2 but no additional volume. PP 38-39. BS are coarse
throughout. Monitor mostly Vent Bijem. ECG done. + pulses. +1 gen anasarca. VS as documented. Rec'd pt on IV Levophed at 13 mcg and currently at 10 mcg-will continue to titrate as BP tolerates keeping MAP >65. Abd is round/obese with hypoactive BS.
Thermistor dubon in place for yellow urine. AM Lasix given as ordered. IV Levophed infusing via RIJ TLC site wnl. Capped int intact L AC site wnl. Bilat soft wrist restraints in place for pt safety. Turned and repositioned. Skin and mouth care
given. Plan of care reviewed with pt and who is at the bedside.
--- NOTE | 2024-08-24 09:15 | PTCARENOTE ---
FIo2 at 40%- not 50% as documented.
[2024-08-24 09:48] LABS: B.E. -7.5 mmol/L; HCO3 20.1 mmol/L (21-28); PCO2 48 mmHg (32-35); PO2 91 mmHg (83-108); pH 7.23 (7.35-7.45)
[2024-08-24 09:49] LABS: O2 Saturation % 95.3 % (94-98)
--- NOTE | 2024-08-24 10:30 | PTCARENOTE ---
Tolerating being off Fentanyl gtt. Temp coming up currently 97.0. Weaning IV Levophed as BP permits
--- NOTE | 2024-08-24 10:41 | W.PN.CD ---
Today's Communication / Plan
-
Coontinue supportive care
IV lasix
Ischemic eval at some point
Impression / Plan
-
Cardiac arrest
- presumed hypoxic
- ECG shows unchanged lateral ST changes
- Echocardiogram below
- she follows simple commands after ~ 20 mins of downtime during which high quality CPR was performed
- Abx for sepsis
- pressor support and weaning vent as able
Sgpzl-sg-awfqfha HFrEF ICMO w/ 30%:
-Echo as below
-GDMT on hold given requirement of pressors
- cont amio and aspirin statin
- IV lasix bid today
- heparin gtt given AF
Abnormal troponin:
-will need ischemia eval at some point given reduced EF
- however, given severe critical illness will need to wait for some recovery
CAD with CABG and stenting:
- ischemic eval at some point
-On ASA- continue, as well as statin and BB- continue
PAF:
-stable in SR
-on amiodarone
- now heparin gtt holding Eliquis
Anemia:
-stable
-w/u per primary team
NARCISO:
-Cr 2.0 likely 2/2 worsening sepsis and hypotension
- stable/improving
Hyperkalemia:
-monitor with diuresis
SQ ICD is in place
Subjective: re-intubated this AM alert but sedated
Data:
Cath 01/17/21: Severe [place] triple-vessel CAD as described with patent PAIGE-LAD and patent but severely diseased SVG-OM2. In addition to the severe disease in the vein graft, there is new significant mid LAD disease distal to the XAVIER graft
touchdown site. Successful stenting of 90% mid body SVG-OM2 graft lesion using 4.0 x 23 Xience Estefania GEO. Successful stenting of 60% distal SVG-OM2 graft lesion using 4.0 x 12 Xience Estefania GEO.
Physical Exam
Vital Signs/Labs
Vital Signs
Temp Pulse Resp BP Pulse Ox
95.3 F L 70 20 152/58 100
08/24/24 08:42 08/24/24 10:30 08/24/24 08:30 08/24/24 10:30 08/24/24 10:30
08/23/24 08/24/24 08/25/24
06:59 06:59 06:59
Actual Weight 175 lb 0.752 oz 181 lb 7.047 oz
08/24/24 04:16
08/24/24 04:16
PT 17.7 Sec (11.4-14.6) H 08/22/24 12:44
INR 1.40 08/22/24 12:44
APTT 115.2 Sec (23.4-35.0) H 08/24/24 04:16
Magnesium 2.1 mg/dl (1.6-2.3) 08/23/24 03:36
Triglycerides Cancelled 08/24/24 05:34
08/21/24
10:19
Vdu-P-Fuehxannsxw Pept 80647
LAB Results
08/21/24 08/21/24 08/21/24
10:19 13:20 17:53
Troponin I 1.640 H* 1.990 H* 2.360 H*
08/21/24 08/22/24 08/22/24
22:06 00:19 06:00
Troponin I Cancelled 2.100 H* Cancelled
Physical Exam
Constitutional: No acute distress
EENT: Anicteric
Cardiovascular: Rhythm & rate is regular
Respiratory: Crackles Present and Rhonchi Present
GI: Soft
Neuro/Psych: Other (intubated )
Data Reviewed
-
Date of Service: August 24, 2024
EKG: Tracing Personally Visualized and interpreted (sr)
Echo: Report Reviewed by me
Labs: Labs Reviewed by me
[2024-08-24] MEDS: SUBLIMAZE 50 MCG IV ×4 (11:25→20:17)
--- NOTE | 2024-08-24 11:57 | W.PN.INTV ---
Today's Communication / Plan
Recommendations
Continue mechanical ventilation settings without change
ABG in the morning
Minimize sedation
IV diuretics
Continue antibiotics
N.p.o. for now
Heparin drip-follow PTT
Assessment
-
83-year-old female with history of coronary disease distant bypass surgery 1997, atrial fibrillation on amiodarone and Eliquis at 2.5 mg twice a day who presents with 2 to 3-week history of shortness of breath. Cording to Yashira, patient
refused evaluation but was seen as a routine visit by primary 08/21 was instructed to go to the ED. Found to be hypoxic, thought to be heart failure with elevated troponin. Also found to be anemic. On 08/22 developed cardiac arrest followed by 20
minutes of high-quality CPR with ROSC, intubated and transferred to ICU 08/22
Acute hypoxic respiratory failure
Intubated 08/22
Code 9, 20 minutes high-quality CPR (Epi x 5, Atropine x 1, bicarb, IVF, intubated)
Bilateral patchy infiltrates, suspected right upper lobe consolidation
Pneumonia versus patchy heart failure
COVID, influenza negative at time of admission
Shortness of breath x 3 weeks
History of falls, syncope
Twice in the last 3 weeks
Anemia, hemoglobin 9.5
Leukocytosis
Acute renal insufficiency, creatinine 2.1
Baseline 1.4-1.6
Acute transaminitis, likely secondary to cardiac arrest
Conditions present prior to admission
History of CKD baseline creatinine 1.4
History of syncope, suspected orthostasis per outpatient records
Atrial fibrillation on Eliquis 2.5 mg twice a day
Coronary disease history of bypass surgery
s/p [facility] 01/17/2021: Successful stenting of mid SVG OM2 graft and distal SVG to OM 2 graft
History of heart failure, elevated filling pressures per catheterization 2020
History of stroke 1997
GERD/peptic ulcer disease
Diabetes
Hypertension/hyperlipidemia
Hypoxia on home oxygen, details unclear
Distant tobacco history
Plan/recommendations
Extubated 08/23/2024 to intermittent BiPAP
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
-
Salient features include hypoxic event with cardiac arrest with ROSC following high-quality CPR
Chest x-ray with bilateral patchy infiltrates suggestive of possible right upper lobe pneumonia
Patient has had 2 to 3 weeks of shortness of breath per prior admission.
-
Continue mechanical ventilation, reintubated after less than 24 hours 08/24/2024
Continue with current mechanical ventilation settings
ABG shortly after intubation still with acidosis
Will minimize sedation likely acid-base status will improve
Patient not bronchospastic on exam
On sedation able to follow commands
Hold off on a spontaneous breathing trial, suspect reintubation likely due to either fatigue or residual sedation in the setting of obesity, perhaps obstructive sleep apnea etc.
-
Empiric antibiotics for presumed pneumonia, olglatuel-izolgyji-rfaazadyqlo/doxycycline per
Leukocytosis noted
Initially hypothermic now normothermic
Urine culture negative
Respiratory culture pending
Influenza negative
-
Dopplers negative for DVT left upper extremity
Lower extremity Dopplers negative as well
Echocardiogram with LV and RV dysfunction, EF 30%. Progressive per report
Pulmonary edema/systolic heart failure
Cardiology following
Remains on aspirin, Eliquis
IV Lasix twice a day.
Chest x-ray may be consistent with patchy heart failure however there may be a right upper lobe infiltrate per my review
-
Differential also includes thromboembolic process
Less likely given resolution
Patient on chronic Eliquis therapy although 2.5 mg twice a day in the outpatient setting for atrial fibrillation.
For now continue heparin drip for A-fib. Follow PTT.
Eventually to restart oral anticoagulation.
Patient with history of syncope which appears to be chronic upon reviewing outpatient records
Thought to be due to orthostasis
DVT prophylaxis: Was on Eliquis 2.5 mg twice a day, heparin drip started. Mechanical prophylaxis as well
GI prophylaxis: Protonix
N.p.o. for now
If extubated for additional 24 hours start tube feedings.
Reviewed at length with critical care nursing, respiratory care, cardiology, primary service
updated by Dr. Fernando 08/24/2024
Critical care statement: A total of 39 minutes of critical care time was provided for this patient today. This includes management of unstable vital signs, evaluation of the patient at bedside, reviewing the patient's pertinent medical records
including ventilator settings, arterial blood gases, radiographs, microbiology, laboratory evaluations and discussion with primary team, critical care nursing, and respiratory therapy.
Subjective Dataa
Subjective Data
Date of Service:
Date of Service: August 24, 2024
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
Subjective:
Intubated, unable to provide history
Opening eyes to stimuli
Review of Systems
General: Unobtainable - Sedation
Objective Data
Data Reviewed
Vital Signs / I&O / Oxygen:
Vital Signs
Temp Pulse Resp BP Pulse Ox
97.8 F 73 9 128/59 99
08/24/24 11:35 08/24/24 11:45 08/24/24 11:45 08/24/24 11:45 08/24/24 11:45
Intake and Output
08/23/24 08/24/24 08/25/24
06:59 06:59 06:59
Intake Total 5315.8 / 5417.3 1643.3 / 1694.6 181.3 / 181.3
Output Total 1490 / 1490 1600 / 1600 290 / 290
Balance 3825.8 / 3927.3 43.3 / 94.6 -108.7 / -108.7
SaO2 [CPAP/PSV] 93
SaO2 [A/C] 95
SaO2 99
Nasal Cannula flow liters per 4
minute
Physical Exam
General: Comfortable and Other (Right IJ)
HEENT: Normocephalic and Other (ETT in place.)
Cardiovascular: S1-S2, Regular Rhythm, Murmur (n) and Rub (n)
Respiratory: Wheeze (n), Crackles (Few scattered), Rhonchi (n) and Non-Labored Respirations
GI: Soft, Non Distended and Non Tender
Neurology: Other (Lethargic on sedation but able to open eyes and follow commands)
Skin: Cyanosis (n), Jaundice (n) and Rash (n)
Labs/Micro/Reports
Lab Data
08/24/24 04:16
08/24/24 04:16
Laboratory Results
08/24/24 08/24/24 08/24/24
04:16 04:56 09:24
APTT 115.2 H
pH 7.05 L* 7.23 L
pCO2 96 H* 48 H
pO2 159 H 91
HCO3 26.6 20.1 L
O2 Delivery Level Bipap
Microbiology
08/22/24 13:37 Endotracheal Respiratory Culture - Preliminary
08/22/24 13:37 Endotracheal Gram Stain - Preliminary
08/22/24 13:37 Urine Urine Culture - Final
NO GROWTH
08/21/24 11:51 Nasal Swab Influenza Types A & B (THERESE) - Final
Negative for Influenza A & B, NAAT
Negative results must be combined with clinical observations
and patient history.
Nucleic Acid Amplification test (NAAT)performed on the
[employer] NOW platform.
08/21/24 10:19 Nasal Swab Influenza Types A & B (THERESE) - Final
Test repeatedly invalid.
Nucleic Acid Amplification test (NAAT)performed on the
[employer] NOW platform.
--- NOTE | 2024-08-24 12:00 | PTCARENOTE ---
Heparin gtt restarted but Cardiovascular protocol - restarted at 1200 units/hr via RIJ TLC
[2024-08-24 12:02] LABS: Glucose - Point of Care 298 mg/dl (70-99)
[2024-08-24] MEDS: HEPARIN 25000 UNITS/250 ML IV (12:03)
[2024-08-24] MEDS: NOVOLOG FLEXPEN-LOW RESISTANCE 3 UNITS SC (12:13)
--- NOTE | 2024-08-24 12:20 | PTCARENOTE ---
Pt overall has been tolerating the vent. Mostly with eyes closed but will open them to commands and follow basic commands. Medicated with Fentanyl 50 mcg IV at 1125 prior to small bore feeding tube inserted. Small bore feeding tube inserted via the
L nare at the 65 cm harini- Currently abd xray taken and pt repositioned. Mouth and skin care given. VS as documented. Levophed weaned to off at 1200 as MAP's have been >65. remains at the bedside.
--- NOTE | 2024-08-24 13:40 | PTCARENOTE ---
Placement confirmed on feeding tube and stylet removed. Remedicated with Fentanyl 50 mcg IV for coughing and discomfort. No other changes
[2024-08-24] MEDS: STERILE WATER FOR INJECTION 10 ML IV (14:17)
[2024-08-24] MEDS: ROCEPHIN 1000 MG IV (14:17)
[2024-08-24] MEDS: PACERONE 100 MG PO (14:17)
[2024-08-24] MEDS: FEOSOL 325 MG PO (14:18)
[2024-08-24] MEDS: FLUSH (NSS) 2 FLUSH IV ×2 (14:18→16:50)
[2024-08-24] MEDS: LOW STRENGTH ASPIRIN 81 MG TUBE (14:18)
--- NOTE | 2024-08-24 14:32 | W.PN.HOSP.TC ---
Addendum entered and electronically signed by Benitez Flood MD 09/07/24 16:01:
Stage 2, maceration of the lip, right upper lip, biting lip vs ett
Original Note:
Today's Communication/Plan
-
Assessment / Plan
Assessment / Plan
In-hospital cardiac arrest
-Believed to be respiratory driven as hypoxia and not wearing oxygen seems to be a leading cause
--Bradycardia down PEA arrest
--S/p high-quality CPR
--ROSC achieved after multiple doses of epinephrine
Acute hypoxic hypercapnic respiratory failure
-Did not improve with BiPAP
-Intubated now on mechanical ventilator
-Sedated
-SAT/SBT
-GI prophylaxis
Shock cardiogenic or medication induced with being on propofol vs septic (white count and hypothermic)
-Continue pressor support
-Goal MAP greater than 65
-Wean pressors as tolerated
-Bcx x2
-Will discuss with ICU if Atb's should be started
Acute on chronic HFrEF, 30%, NYHA II-IV
-IV Lasix BID
-GDMT on hold as on pressor support
PAFib now in SR
-Continue amio
-Eliquis held
-Continue Hep gtt, hep protocol, q6h ptt
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
-Monitor UOP
-Avoid Nephrotoxins and hypotension
-IV Diuretics
Acute ischemic hepatitis, improving as expected
-Elevated transaminases likely due to cardiac arrest, shock.
Troponin elevation -presumably acute nonischemic myocardial injury. Patient never had complaints of chest pain according to cardiology.
DM2 with hyperglycemia/hypoglycemia - hemoglobin A1c 9.0%. At home she is on glimepiride 4 mg daily, Lantus 35 units daily, Lantus 20 units at bedtime. Hold glimepiride in the hospital.
Stop Lantus, change corrective insulin to low resistance scale.
PAD -history of right lower extremity stenting.
CAD/CABG -CABG in 1997, four-vessel. With prior stents.
Paroxysmal atrial fibrillation -continue amiodarone, now on IV heparin. Resume Eliquis prior to discharge.
Essential hypertension -currently in shock requiring vasopressors.
Acute anemia -baseline hemoglobin 12 in June, admission hemoglobin 9.7, hemoglobin 8.3 today. Monitor on anticoagulation.
Hyperlipidemia -on atorvastatin.
Hypothyroidism - levothyroxine.
History of GI bleed -history of Dieulafoy lesion status post clipping. History of ruptured duodenal vein in 2014.
Obesity due to excess calories
full code
Anticipated Discharge: > 48 hours
Subjective/Interval History
-
Date of Service: August 24, 2024
Seen and examined. On mechanical ventilator endotracheally intubated and on pressor support
at bedside
Objective Data
-
Labs:
Laboratory Results
08/24/24 08/24/24 08/24/24
04:16 04:56 09:24
WBC 16.8 H
Hgb 9.2 L
Hct 29.9 L
Plt Count 364 D
APTT 115.2 H
HCO3 26.6 20.1 L
Sodium 139
Potassium 4.6 D
Chloride 101
Carbon Dioxide 22
BUN 68 H
Creatinine 2.1 H
Glucose 178 H
Calcium 8.3 L
Total Bilirubin 0.4
AST 69 H
ALT 159 H
Alkaline Phosphatase 108
08/24/24 08/24/24
12:00 18:00
WBC
Hgb
Hct
Plt Count
APTT Pending Pending
HCO3
Sodium
Potassium
Chloride
Carbon Dioxide
BUN
Creatinine
Glucose
Calcium
Total Bilirubin
AST
ALT
Alkaline Phosphatase
Vital Signs:
Vital Signs
Temp Pulse Resp BP Pulse Ox
99.1 F 73 21 101/48 98
08/24/24 13:00 08/24/24 14:17 08/24/24 13:00 08/24/24 14:17 08/24/24 13:00
I&O
08/23/24 08/24/24 08/25/24
06:59 06:59 06:59
Intake Total 5315.8 / 5417.3 1643.3 / 1694.6 200.8 / 200.8
Output Total 1490 / 1490 1600 / 1600 410 / 410
Balance 3825.8 / 3927.3 43.3 / 94.6 -209.2 / -209.2
Physical Exam
-
General: No Apparent Distress and Appears Chronically Ill
HEENT: Normocephalic, Atraumatic and Other (Endotracheally intubated)
Respiratory: Crackles and Other (Mechanical breath sound)
Cardiac: Regular Rhythm and S1/S2
GI: Soft, Nontender and Nondistended
Skin: Warm
Neuro: Awake, Alert and AO x 3
Psych: Other (Sedated)
[2024-08-24] MEDS: ASPIR LOW (ENTERIC COATED) PO (15:06)
--- NOTE | 2024-08-24 15:40 | PTCARENOTE ---
Pt in Afib since about 1500- ECG obtained showing AFIB. Rates 80-100. VS as documented. Pt did receive her po Amiodarone via feeding tube. Dr. Fernando updated.
[2024-08-24 15:48] LABS: Glucose - Point of Care 207 mg/dl (70-99)
[2024-08-24] MEDS: LANTUS 0.2 UNITS SC (16:00)
--- NOTE | 2024-08-24 16:00 | PTCARENOTE ---
Assessment overall is unchanged. Blood cultures x2 sent per md order. Tolerating vent. Settings as documented. Mostly at a rate of 20. Suctioned for small amts of bloody secretions. VS as documented. Heparin gtt at 1200 units/hr. Feeding tube
clamped. Rivera with yellow urine. Turned and repositioned. Skin and mouth care given.
--- NOTE | 2024-08-24 17:00 | PTCARENOTE ---
BP dipping into the 78-80's range with map of 60- Levophed restarted at 2 mcg at 1655. via RIJ TLC.
[2024-08-24 18:12] LABS: Glucose - Point of Care 180 mg/dl (70-99)
[2024-08-24] MEDS: NOVOLOG FLEXPEN-LOW RESISTANCE 1 UNITS SC (18:42)
--- NOTE | 2024-08-24 18:45 | PTCARENOTE ---
PTT sent. Currently on 3 mcg of Levophed. Pt tapping on the siderail and admits to feeling a little anxious. Medicated with Fentanyl 50 mcg IV.
[2024-08-24 18:56] LABS: APTT 65.7 Sec (23.4-35.0)
--- NOTE | 2024-08-24 20:00 | PTCARENOTE ---
rec`d pt at 1900 intubated. nods head appropriately. squeezes hands on command. SR on monitor. HR 70s-80s. afebrile. +1 edema. levo weaned off at change of shift. + pulses. #7 1/2 ETT @25 center. coarse lung sounds. vent settings 20/450/40%/ 5 of
peep. bloody secretions through ETT. POX 96% dohboff left nare at the 65cm harini. dubon draining kermit urine. restraints. bruise on chest, rt lip macerated. rt IJ w/ heparin gtt. safe environment maintained.
[2024-08-24] MEDS: LIPITOR 80 MG PO (20:18)
[2024-08-24 23:55] LABS: Glucose - Point of Care 143 mg/dl (70-99)
[2024-08-25] VITALS (49 sets, daily range): BP systolic 98–159; BP diastolic 49–97; PULSE 2–86; BMI 32.1
--- NOTE | 2024-08-25 | PTCARENOTE ---
pt reassessed. no changes in pt assessment. pt still nods head appropriately to questions. POX mid 90s.
[2024-08-25] MEDS: NOVOLOG FLEXPEN-LOW RESISTANCE SC ×2 (00:01→05:56)
[2024-08-25] MEDS: VIBRAMYCIN 260 MG IV ×2 (02:21→14:36)
[2024-08-25 03:03] LABS: APTT 110.6 Sec (23.4-35.0)
[2024-08-25 03:04] LABS: Hematocrit 21.6 % (37.0-47.0); Hemoglobin 7.2 g/dL (12.0-16.0); Mean Corp Hgb Conc. 33.3 g/dL (33.0-37.0); Mean Corpuscular Hgb 33.2 pg (27.0-31.0); Mean Corpuscular Volume 99.5 fL (81.0-99.0); Mean Platelet Volume 10.3 fL (7.4-10.4); Platelet Count 237 10^3/uL (130-400); Red Blood Cell Count 2.17 10^6/uL (4.20-5.40); White Blood Cell Count 7.9 10^3/uL (4.8-10.8)
[2024-08-25 03:29] LABS: Blood Urea Nitrogen 80 mg/dl (7-17); Calcium 8.4 mg/dl (8.4-10.2); Carbon Dioxide 28 mmol/L (22-30); Chloride 103 mmol/L (98-107); Estimated Creatinine Clearance 21 ml/min; Glucose 122 mg/dl (70-99); Magnesium 2.2 mg/dl (1.6-2.3); Potassium 3.2 mmol/L (3.5-5.1); Sodium 140 mmol/L (135-145); eGFR 23.09
--- NOTE | 2024-08-25 03:54 | PTCARENOTE ---
pt reassessed. no changes in pt assessment. pt still nods head appropriately to questions. POX mid 90s.
[2024-08-25] MEDS: KCL 100 IV (04:01)
[2024-08-25 04:32] LABS: B.E. 1.8 mmol/L; HCO3 25.5 mmol/L (21-28); O2 Saturation % 98.7 % (94-98); PCO2 35 mmHg (32-35); PO2 71 mmHg (83-108); pH 7.47 (7.35-7.45)
[2024-08-25 05:59] LABS: Glucose - Point of Care 143 mg/dl (70-99)
[2024-08-25] MEDS: SYNTHROID 75 MCG PO (06:15)
[2024-08-25 06:43] LABS: O2 Therapy AC MV
[2024-08-25] MEDS: PACERONE 100 MG PO (08:02)
[2024-08-25] MEDS: LOW STRENGTH ASPIRIN 81 MG TUBE (08:02)
[2024-08-25] MEDS: VITAMIN C 500 MG PO (08:02)
[2024-08-25] MEDS: LASIX 40 MG IV ×2 (08:02→16:12)
[2024-08-25] MEDS: THERAGRAN 1 TABLET PO (08:02)
[2024-08-25] MEDS: FLUSH (NSS) 2 FLUSH IV (08:03)
[2024-08-25] MEDS: HEPARIN 25000 UNITS/250 ML IV (08:19)
--- NOTE | 2024-08-25 09:15 | PTCARENOTE ---
Rec'd pt at 0800 resting in bed with at the bedside. Pt easily arousable to verbal stimuli - nods head and gestures approp. GUS at 3mm. KNIGHT. Legs are weak but handgrasps are strong. Admits to throat discomfort from ETT. Does get sl anxious
but easily calms with explanation. Skin is pale wm and dry. Mid sternum remains ecchymotic. R upper lip - noted yesterday is macerated.- not sure if from ETT or possibly biting her lip with previous arrest. ETT was moved to the center of the mouth
at 0800 yesterday (was intubated at around 0530 yesterday) and has been repositioned primarily to either the center of the mouth or the L side. Tissue is reddened and ecchymotic. Respirs are intact on the vent. Fio2 40% AC 20, tv 450, peep 5 this am
and currently on CPAP 5/PS 5 wean with sats of 95%. TV 280-360 and RR 16-18. BS are decreased and coarse. ETT secretions are bloody but small amts. Monitor SR with border 1st'avb. + pulses. Tr generalized anasarca. VS as documented. Heparin gtt
continues at 1300 units via RIJ TLC. Site wnl. KCL rider 40 meq finishing up via TLC. Capped ints intact R wrist and L arm. Abd is round/obese with hypoactive bs. Denies nausea. Small bore feeding tube intact L nare 65 cm harini. 0 residual. Meds
given. Thermistor dubon for yellow urine. Lasix given as ordered. Skin and mouth care given. Turned and repositioned. Pt and updated on plan of care. Soft wrist restraints in place for pt safety.
--- NOTE | 2024-08-25 09:32 | W.PN.INTV ---
Today's Communication / Plan
Recommendations
Maintain off sedation
Continue mechanical ventilation without change
A spontaneous breathing trial, obtain ABG 30 to 45 minutes
Continue IV diuretics
Potassium repleted, follow BMP
Continue antibiotics for now
Heparin drip
If extubated to BiPAP as needed at bedtime
avoid sedatives
Assessment
-
83-year-old female with history of coronary disease distant bypass surgery 1997, atrial fibrillation on amiodarone and Eliquis at 2.5 mg twice a day who presents with 2 to 3-week history of shortness of breath. Cording to Yashira, patient
refused evaluation but was seen as a routine visit by primary 08/21 was instructed to go to the ED. Found to be hypoxic, thought to be heart failure with elevated troponin. Also found to be anemic. On 08/22 developed cardiac arrest followed by 20
minutes of high-quality CPR with ROSC, intubated and transferred to ICU 08/22
Acute hypoxic respiratory failure
Intubated 08/22
Code 9, 20 minutes high-quality CPR (Epi x 5, Atropine x 1, bicarb, IVF, intubated)
Bilateral patchy infiltrates, suspected right upper lobe consolidation
Pneumonia versus patchy heart failure
COVID, influenza negative at time of admission
Shortness of breath x 3 weeks
History of falls, syncope
Twice in the last 3 weeks
Anemia, hemoglobin 9.5
Leukocytosis
Acute renal insufficiency, creatinine 2.1
Baseline 1.4-1.6
Acute transaminitis, likely secondary to cardiac arrest
Conditions present prior to admission
History of CKD baseline creatinine 1.4
History of syncope, suspected orthostasis per outpatient records
Atrial fibrillation on Eliquis 2.5 mg twice a day
Coronary disease history of bypass surgery
s/p [facility] 01/17/2021: Successful stenting of mid SVG OM2 graft and distal SVG to OM 2 graft
History of heart failure, elevated filling pressures per catheterization 2020
History of stroke 1997
GERD/peptic ulcer disease
Diabetes
Hypertension/hyperlipidemia
Hypoxia on home oxygen, details unclear
Distant tobacco history
Plan/recommendations
Extubated 08/23/2024 to intermittent BiPAP
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
-
Salient features include hypoxic event with cardiac arrest with ROSC following high-quality CPR
Chest x-ray with bilateral patchy infiltrates suggestive of possible right upper lobe pneumonia
Patient has had 2 to 3 weeks of shortness of breath per prior admission.
-
Continue mechanical ventilation, reintubated after less than 24 hours 08/24/2024
Mechanical ventilation settings reviewed
Pulmonary mechanics acceptable
With sedation breaks patient alert and following commands.
Lung exam relatively clear
Chest x-ray 08/25/2024: Interstitial edema pattern, right small pleural effusion.
-
Maintain off sedation
Spontaneous breathing trial-if patient appropriate, following commands and with a strong cough effort will extubate.
Will require nocturnal BiPAP and as needed
Avoid sedatives
-
Patient not bronchospastic on exam
-
Empiric antibiotics for presumed pneumonia, ieahsevge-ebnuwqdq-puxazmkhrvt day #3 on antibiotic, initially on doxycycline as well.
Will complete total 5 days if she continues to improve clinically
Leukocytosis resolved
Afebrile
Initially hypothermic now normothermic
Urine culture negative
Respiratory culture with normal respiratory demetria.
Blood culture pending
Influenza negative
-
Dopplers negative for DVT left upper extremity
Lower extremity Dopplers negative as well
Echocardiogram with LV and RV dysfunction, EF 30%. Progressive per report
Pulmonary edema/systolic heart failure
currently heparin drip.Given atrial fibrillation. Follow PTT.
IV Lasix twice a day.
Chest x-ray pulmonary edema pattern.
Cardiology following, eventual ischemic evaluation.
-
Differential also includes thromboembolic process
Less likely given resolution
Patient on chronic Eliquis therapy although 2.5 mg twice a day in the outpatient setting for atrial fibrillation.
For now continue heparin drip for A-fib. Follow PTT.
Eventually to restart oral anticoagulation.
Hypokalemia, repleted IV and p.o.
Repeat BMP and magnesium at 1 PM 08/25/2024
Patient with history of syncope which appears to be chronic upon reviewing outpatient records
Thought to be due to orthostasis
DVT prophylaxis: Was on Eliquis 2.5 mg twice a day, heparin drip started. Mechanical prophylaxis as well
GI prophylaxis: Protonix
N.p.o. for now-Dobbhoff tube in place.
If extubated for additional 24 hours start tube feedings.
Reviewed at length with critical care nursing, respiratory care, cardiology, primary service
updated by Dr. Fernando 08/24/2024 and 08/25/2024
Critical care statement: A total of 37 minutes of critical care time was provided for this patient today. This includes management of unstable vital signs, evaluation of the patient at bedside, reviewing the patient's pertinent medical records
including ventilator settings, arterial blood gases, radiographs, microbiology, laboratory evaluations and discussion with primary team, critical care nursing, and respiratory therapy.
Subjective Dataa
Subjective Data
Date of Service:
Date of Service: August 25, 2024
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
Subjective:
Critically ill, remains intubated
With sedation breaks following commands, appears comfortable.
Not requiring vasopressor
Remains on heparin drip.
Review of Systems
General: Other (Difficult to obtain due to intubation status)
Objective Data
Data Reviewed
Vital Signs / I&O / Oxygen:
Vital Signs
Temp Pulse Resp BP Pulse Ox
99.2 F 78 27 138/84 95
08/25/24 07:00 08/25/24 08:02 08/25/24 05:30 08/25/24 08:02 08/25/24 05:30
Intake and Output
08/24/24 08/25/24 08/26/24
06:59 06:59 06:59
Intake Total 1643.3 / 1694.6 818.2 / 818.2
Output Total 1600 / 1600 1285 / 1285
Balance 43.3 / 94.6 -466.8 / -466.8
SaO2 [CPAP/PSV] 93
SaO2 [A/C] 96
SaO2 95
Nasal Cannula flow liters per 4
minute
Physical Exam
General: Comfortable and Other (Right IJ)
HEENT: Normocephalic and Other (ETT in place.)
Cardiovascular: S1-S2, Regular Rhythm, Murmur (n) and Rub (n)
Respiratory: Wheeze (n), Crackles (Few scattered), Rhonchi (n) and Non-Labored Respirations
GI: Soft, Non Distended and Non Tender
Neurology: Other (Following commands, strong cough effort, moving 4 extremities per)
Skin: Cyanosis (n), Jaundice (n) and Rash (n)
Labs/Micro/Reports
Lab Data
08/25/24 02:17
Laboratory Results
08/24/24 08/24/24 08/24/24
09: 12:00 18:35
APTT Cancelled 65.7 H
pH 7.23 L
pCO2 48 H
pO2 91
HCO3 20.1 L
O2 Delivery Level
08/25/24 08/25/24
02:17 04:26
APTT 110.6 H
pH 7.47 H
pCO2 35
pO2 71 L
HCO3 25.5
O2 Delivery Level Ac mv
Microbiology
08/22/24 13:37 Endotracheal Respiratory Culture - Final
Usual Respiratory Demetria
08/22/24 13:37 Endotracheal Gram Stain - Final
08/22/24 13:37 Urine Urine Culture - Final
NO GROWTH
[2024-08-25 09:44] LABS: APTT 110.3 Sec (23.4-35.0)
--- NOTE | 2024-08-25 10:10 | PTCARENOTE ---
Tolerating CPAP5/PSV 5 wean with sats of 95% and RR of 14-18, Tv 300's. Dr. Fernando updated and ABG sent by Resp therapy. PTT theraputic at 110.3- Heparin gtt remains at 1300 units/hr.
[2024-08-25 10:17] LABS: B.E. 1.6 mmol/L; HCO3 25.8 mmol/L (21-28); O2 Saturation % 99.9 % (94-98); PCO2 38 mmHg (32-35); PO2 103 mmHg (83-108); pH 7.44 (7.35-7.45)
--- NOTE | 2024-08-25 10:37 | W.PN.CD ---
Today's Communication / Plan
-
-Continue Lasix 40 mg IV BID.
-Continue heparin drip.
-Continue PO amiodarone.
Impression / Plan
-
Cardiac arrest
- presumed hypoxic
- ECG shows unchanged lateral ST changes
- Echocardiogram with EF of 30%.
- Abx for sepsis
- pressor support and weaning vent as able
Jvbwu-rn-cndvvgj HFrEF ICMO w/ 30%:
-GDMT on hold given requirement of pressors
-Continue Lasix 40 mg IV BID.
-Continue heparin drip.
Abnormal troponin:
-will need ischemia eval at some point given reduced EF
- however, given severe critical illness will need to wait for some recovery
CAD with CABG and stenting:
- ischemic eval at some point
-On ASA- continue, as well as statin and BB- continue
PAF:
-Currently in sinus rhythm.
-Continue PO amiodarone.
- now heparin gtt holding Eliquis
Anemia:
-2 g drop in hemoglobin to 7.2 today
-w/u per primary team
NARCISO:
-Cr 2.0 likely 2/2 worsening sepsis and hypotension
-Management as per primary team.
Hyperkalemia:
-monitor with diuresis
SQ ICD is in place
Subjective: Remains intubated, but awake. at bedside.
Data:
Cath 01/17/21: Severe [place] triple-vessel CAD as described with patent PAIGE-LAD and patent but severely diseased SVG-OM2. In addition to the severe disease in the vein graft, there is new significant mid LAD disease distal to the XAVIER graft
touchdown site. Successful stenting of 90% mid body SVG-OM2 graft lesion using 4.0 x 23 Xience Estefania GEO. Successful stenting of 60% distal SVG-OM2 graft lesion using 4.0 x 12 Xience Estefania GEO.
Physical Exam
Vital Signs/Labs
Vital Signs
Temp Pulse Resp BP Pulse Ox
99.2 F 83 13 147/68 96
08/25/24 07:00 08/25/24 10:00 08/25/24 10:00 08/25/24 09:30 08/25/24 09:30
08/24/24 08/25/24 08/26/24
06:59 06:59 06:59
Actual Weight 82.3 kg 82.2 kg
08/25/24 02:17
PT 17.7 Sec (11.4-14.6) H 08/22/24 12:44
INR 1.40 08/22/24 12:44
APTT 110.3 Sec (23.4-35.0) H 08/25/24 09:18
Magnesium 2.2 mg/dl (1.6-2.3) 08/25/24 02:17
Triglycerides Cancelled 08/24/24 05:34
08/21/24
10:19
Zbv-Z-Sauylngmjph Pept [id number]
Physical Exam
Constitutional: No acute distress
Cardiovascular: Rhythm & rate is regular, Pedal edema is absent, Systolic murmur present (2/6) and S1S2 is normal
Respiratory: Other (Coarse bilateral breath sounds, on vent)
GI: Soft
Neuro/Psych: Alert
Other: Skin (Warm, dry)
Data Reviewed
-
Date of Service: August 25, 2024
EKG: Report Reviewed by me (Telemetry: Sinus rhythm)
Echo: Report Reviewed by me (EF 30%)
Labs: Labs Reviewed by me
Critical Care Time (in minutes): 36
[2024-08-25] MEDS: KCL ELIXIR 40 MEQ PO (10:41)
--- NOTE | 2024-08-25 10:45 | PTCARENOTE ---
KCL 40 meq given via feeding tube per md order.
[2024-08-25] MEDS: TYLENOL 650 MG PO ×2 (11:29→23:23)
[2024-08-25] MEDS: FEOSOL 325 MG PO (11:31)
--- NOTE | 2024-08-25 11:40 | PTCARENOTE ---
Pt tolerated CPAP/PSV wean well overall. ABG sent and resulted to Dr. Fernando. Pt extubated at 1110 intially to 4L nc with sats of 92% -secretions in ETT were dk old bloody secretions. Suctiond prior to extubation for same dk bloody secretions-small
amt. Cough is moist. Within 5-10 minutes of extubation sats 86-87% and increased to 6L NC with not much improvement. Then changed to midflow at 12L then 15 L to maintain sats >88%. Post extubation with coarse breath sound and some tight insp
wheezing. Pt also c/o her mid to R chest hurting her -pt ecchymotic on the chest from CPR) Stated it hurts to breathe. Medicated at 1130 with Tylenol 650 mg via feeding tube that remains in place. Dr. Fernadno in to see pt - will let pt be on NC for
about an hr then transition to Bipap for a period of time. Of note pt states the maceration on the R side of her lip/mouth is from her biting on her lip. also validates that prior to intubation she had been biting on her lip/mouth.
Repositioned.
[2024-08-25 12:15] LABS: Glucose - Point of Care 214 mg/dl (70-99)
--- NOTE | 2024-08-25 12:19 | PTCARENOTE ---
Sats currently are hanging around 90-91% on the 15 L midflow.
[2024-08-25] MEDS: NOVOLOG FLEXPEN-LOW RESISTANCE 2 UNITS SC ×3 (12:34→23:16)
--- NOTE | 2024-08-25 14:30 | PTCARENOTE ---
Overall has been tolerating the 15 L midflow. She has been awake- will complain that she cannot breathe because her chest hurts but sats have remained 92-95%. Coughs a moist congested non-prod cough. Unable to get any secretions with oropharyngeal
suctioning. Pt given a heart hug me pillow to try and support her chest when she coughs. VS as documented. CBC/HH sent as ordered. Call grant in reach. remains at the bedside.
[2024-08-25] MEDS: STERILE WATER FOR INJECTION 10 ML IV (14:36)
[2024-08-25] MEDS: ROCEPHIN 1000 MG IV (14:36)
[2024-08-25 14:52] LABS: Hematocrit 25.7 % (37.0-47.0); Hemoglobin 8.3 g/dL (12.0-16.0); Mean Corp Hgb Conc. 32.3 g/dL (33.0-37.0); Mean Corpuscular Hgb 33.1 pg (27.0-31.0); Mean Corpuscular Volume 102.4 fL (81.0-99.0); Mean Platelet Volume 10.1 fL (7.4-10.4); Platelet Count 248 10^3/uL (130-400); Red Blood Cell Count 2.51 10^6/uL (4.20-5.40); Red Cell Dist. Width 14.3 % (11.5-14.5); White Blood Cell Count 11.5 10^3/uL (4.8-10.8)
--- NOTE | 2024-08-25 15:49 | W.PN.HOSP.TC ---
Today's Communication/Plan
-
Assessment / Plan
Assessment / Plan
In-hospital cardiac arrest
-Believed to be respiratory driven as hypoxia and not wearing oxygen seems to be a leading cause
--Bradycardia down PEA arrest
--S/p high-quality CPR
--ROSC achieved after multiple doses of epinephrine
Acute hypoxic hypercapnic respiratory failure
-Did not improve with BiPAP
-Intubated now on mechanical ventilator
-Sedated
-SAT/SBT daily
-GI prophylaxis
Shock cardiogenic or medication induced with being on propofol vs septic (white count and hypothermic)
-Continue pressor support
-Goal MAP greater than 65
-Wean pressors as tolerated
-Bcx x2
-Will discuss with ICU if Atb's should be started
Acute on chronic HFrEF, 30%, NYHA II-IV
-IV Lasix BID
-GDMT on hold as on pressor support
PAFib now in SR
-Continue amio
-Eliquis held
-Continue Hep gtt, hep protocol, q6h ptt
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
-Monitor UOP
-Avoid Nephrotoxins and hypotension
-IV Diuretics
Acute ischemic hepatitis, improving as expected
-Elevated transaminases likely due to cardiac arrest, shock.
Troponin elevation -presumably acute nonischemic myocardial injury. Patient never had complaints of chest pain according to cardiology.
DM2 with hyperglycemia/hypoglycemia - hemoglobin A1c 9.0%. At home she is on glimepiride 4 mg daily, Lantus 35 units daily, Lantus 20 units at bedtime. Hold glimepiride in the hospital.
Stop Lantus, change corrective insulin to low resistance scale.
PAD -history of right lower extremity stenting.
CAD/CABG -CABG in 1997, four-vessel. With prior stents.
Paroxysmal atrial fibrillation -continue amiodarone, now on IV heparin. Resume Eliquis prior to discharge.
Essential hypertension -currently in shock requiring vasopressors.
Acute anemia -baseline hemoglobin 12 in June, admission hemoglobin 9.7, hemoglobin 8.3 today. Monitor on anticoagulation.
Hyperlipidemia -on atorvastatin.
Hypothyroidism - levothyroxine.
History of GI bleed -history of Dieulafoy lesion status post clipping. History of ruptured duodenal vein in 2014.
Obesity due to excess calories
full code
Anticipated Discharge: > 48 hours
Subjective/Interval History
-
Date of Service: August 25, 2024
Seen and examined. Remains mechanically ventilated and endotracheally intubated
Objective Data
-
Labs:
Laboratory Results
08/25/24 08/25/24 08/25/24
04:26 09:18 10:04
WBC
Hgb
Hct
Plt Count
APTT 110.3 H
HCO3 25.5 25.8
08/25/24
14:34
WBC 11.5 H
Hgb 8.3 L
Hct 25.7 L
Plt Count 248
APTT
HCO3
Vital Signs:
Vital Signs
Temp Pulse Resp BP Pulse Ox
98.7 F 90 15 152/70 94
08/25/24 15:00 08/25/24 14:30 08/25/24 14:30 08/25/24 14:00 08/25/24 15:25
I&O
08/24/24 08/25/24 08/26/24
06:59 06:59 06:59
Intake Total 1643.3 / 1694.6 818.2 / 856.2 512 / 512
Output Total 1600 / 1600 1285 / 1285 1080 / 1080
Balance 43.3 / 94.6 -466.8 / -428.8 -568 / -568
Physical Exam
-
General: Other (Mechanically ventilated endotracheally intubated)
HEENT: Normocephalic and Atraumatic
Respiratory: Crackles and Other (Mechanical ventilator sound)
Cardiac: Regular Rhythm and S1/S2
GI: Soft, Nontender, Nondistended and Normal Bowel Sounds
Skin: Warm
Neuro: Other (Following simple commands moving extremity)
[2024-08-25] MEDS: FLUSH (NSS) 1 FLUSH IV (16:12)
--- NOTE | 2024-08-25 17:00 | PTCARENOTE ---
Pt had been visiting with family/neighbor this afternoon. Tolerated- although around 1615 started to seem more tired and weak and admitted she wanted to rest. Constantly states she feels as if she cannot breathe and has a moist cough that she cannot
expectorate any secretions from. After family left turned and repositioned pt with the goal to get pt on Bipap. Sitting up sats 91% on 14L midflow but with lying down to turn sats dipped to 83-85%. Placed at 1645 on Bipap intially 16/5 but sats very
slow to improve- eventually titrated to 18/10 +15l and sats currently 91%. Dr. Fernando updated. Pt very drowsy but arousable and nodding approp. BS are coarse throughout. VS as documented. Capped int removed from R medial forearm. L nare feeding
tube remains intact. Skin and mouth care given.
[2024-08-25 18:07] LABS: Glucose - Point of Care 237 mg/dl (70-99)
--- NOTE | 2024-08-25 18:08 | PTCARENOTE ---
Sats are 97%. Respirs in general are shallow but not labored and pt admits feeling more comfortable. Dozes but easily awakens. No other changes
--- NOTE | 2024-08-25 20:00 | PTCARENOTE ---
assumed care, pt drowsy be awaken verbally, AAOx3 KNIGHT and denies pain, NSR on the monitor c PVCs, +1 anasarca weak pulses, moist occasional cough, shallow breaths diminished and coarse throughout, BIPAP 18/10 15L SpO2 95%, round obese BSx4
hypoactive, DHT L nare 65cm, temp sensing dubon yellow output, R TL IJ, LAC, Hep 13ml call grant within reach, pt able to make needs known, otherwise refer to documentation.
[2024-08-25] MEDS: LIPITOR 80 MG TUBE (22:58)
[2024-08-25 23:25] LABS: Glucose - Point of Care 204 mg/dl (70-99)
[2024-08-26] VITALS (28 sets, daily range): BP systolic 126–156; BP diastolic 57–81; PULSE 2–108; BMI 31.8
--- NOTE | 2024-08-26 00:20 | PTCARENOTE ---
systems reviewed, chg bath, during turn pt c/o 610 chest pain from CPR Tylenol give per MAR, no changes from prior assessment, otherwise refer to documentation.
[2024-08-26] MEDS: VIBRAMYCIN 260 MG IV ×2 (01:33→14:38)
[2024-08-26] MEDS: HEPARIN 25000 UNITS/250 ML IV ×2 (03:27→23:58)
[2024-08-26 03:38] LABS: Hemoglobin 7.8 g/dL (12.0-16.0); Mean Corp Hgb Conc. 31.2 g/dL (33.0-37.0); Mean Corpuscular Hgb 33.2 pg (27.0-31.0); Mean Corpuscular Volume 106.4 fL (81.0-99.0); Platelet Count 230 10^3/uL (130-400); Red Blood Cell Count 2.35 10^6/uL (4.20-5.40); Red Cell Dist. Width 14.4 % (11.5-14.5); White Blood Cell Count 11.5 10^3/uL (4.8-10.8)
[2024-08-26 04:01] LABS: APTT 124.1 Sec (23.4-35.0)
--- NOTE | 2024-08-26 05:00 | PTCARENOTE ---
systems reviewed, no changes from previous assessment, labs sent, PO meds switched to down the tube, otherwise refer to documentation.
[2024-08-26] MEDS: NOVOLOG FLEXPEN-LOW RESISTANCE 1 UNITS SC ×2 (05:08→12:36)
[2024-08-26 05:17] LABS: Blood Urea Nitrogen 75 mg/dl (7-17); Calcium 8.5 mg/dl (8.4-10.2); Carbon Dioxide 26 mmol/L (22-30); Chloride 108 mmol/L (98-107); Estimated Creatinine Clearance 22 ml/min; Glucose 137 mg/dl (70-99); Magnesium 2.1 mg/dl (1.6-2.3); Potassium 3.8 mmol/L (3.5-5.1); Sodium 145 mmol/L (135-145); eGFR 24.48
[2024-08-26 05:19] LABS: Glucose - Point of Care 154 mg/dl (70-99)
[2024-08-26] MEDS: SYNTHROID 75 MCG TUBE (06:11)
[2024-08-26] MEDS: THERAGRAN 1 TABLET PO (07:42)
[2024-08-26] MEDS: PACERONE 100 MG TUBE (07:42)
[2024-08-26] MEDS: CLARITIN 10 MG PO (07:42)
[2024-08-26] MEDS: VITAMIN C 500 MG TUBE (07:42)
[2024-08-26] MEDS: LOW STRENGTH ASPIRIN 81 MG TUBE (07:43)
[2024-08-26] MEDS: LASIX 40 MG IV ×2 (07:44→16:50)
[2024-08-26] MEDS: FLUSH (NSS) 2 FLUSH IV ×2 (07:45→16:51)
--- NOTE | 2024-08-26 08:09 | W.PN.CD ---
Today's Communication / Plan
-
continue IV lasix
add back coreg at reduced dose, 3.125 mg po bid
give kcl given iv lasix to continue
Impression / Plan
-
Primary Cards: Yamile
Cardiac arrest
- presumed hypoxic
- ECG shows unchanged lateral ST changes
- Echocardiogram with EF of 30%.
- Abx for sepsis
- pressor support and weaned
Pmrcf-up-hyrbexw HFrEF ICMO w/ 30%(global HK):
-GDMT on hold given requirement of pressors, but now bp with room for additional medications
-will add back low dose bb, will hold off on ARB/ARNI until completely euvolemic and NARCISO improves
-Renal function limits MRA and SGLT2 riht now
-Continue Lasix 40 mg IV BID.
Abnormal troponin:
-will need ischemia eval at some point given reduced EF
- however, given severe critical illness will need to wait for some recovery
CAD with CABG and stenting:
- ischemic eval at some point, at this time would beryl for renal recovery
-On ASA- continue, as well as statin and BB- continue
PAF:
-Currently in sinus rhythm.
-Continue PO amiodarone.
-Continue heparin drip--given anemia of unknowne etiology.
-typically on Eliquis
Anemia:
-07/03/24 hgb 12.4 now 7.8
-stable without transfusion in last 24 hours but there has been significant decline
-w/u per primary team
NARCISO:
-Cr 2.0 likely 2/2 worsening sepsis and hypotension
-Management as per primary team.
Hyperkalemia:
-now hypokalemic yesterday with diuresis
-continue to monitor with diuresis
SQ ICD is in place
Subjective: Awake, pain all over her body, breathing is 'terrible'.
at bedside.
Data:
Cath 01/17/21: Severe [place] triple-vessel CAD as described with patent PAIGE-LAD and patent but severely diseased SVG-OM2. In addition to the severe disease in the vein graft, there is new significant mid LAD disease distal to the XAVIER graft
touchdown site. Successful stenting of 90% mid body SVG-OM2 graft lesion using 4.0 x 23 Xience Estefania GEO. Successful stenting of 60% distal SVG-OM2 graft lesion using 4.0 x 12 Xience Estefania GEO.
Remains critically ill, prognosis gaurded
cct 31 minutes.
Physical Exam
Vital Signs/Labs
Vital Signs
Temp Pulse Resp BP Pulse Ox
98.2 F 87 15 156/72 96
08/26/24 07:00 08/26/24 07:44 08/26/24 06:00 08/26/24 07:44 08/26/24 06:00
08/25/24 08/26/24 08/27/24
06:59 06:59 06:59
Actual Weight 82.2 kg 81.3 kg
08/26/24 03:26
PT 17.7 Sec (11.4-14.6) H 08/22/24 12:44
INR 1.40 08/22/24 12:44
APTT 124.1 Sec (23.4-35.0) H 08/26/24 03:26
Magnesium 2.1 mg/dl (1.6-2.3) 08/26/24 03:26
Triglycerides Cancelled 08/24/24 05:34
08/21/24
10:19
Sjy-B-Phpyfclyadl Pept [id number]
Physical Exam
Constitutional: Other (uncomfortable)
Cardiovascular: Rhythm & rate is regular, Pedal edema is absent, Systolic murmur absent and Diastolic murmur absent
Respiratory: Respiratory effort normal and Rhonchi Present (diffusely bilaterally )
GI: Soft
Neuro/Psych: AO x 3
Data Reviewed
-
Date of Service: August 26, 2024
Medical Decision Making: Review of Case with other Provider (Dr Flood, DEIDRA tate, continue diuresis, not sure why she is anemic. Will give k and resume some bb)
EKG: Other (tele sinus with rare pvcs)
--- NOTE | 2024-08-26 09:15 | PTCARENOTE ---
Rec'd pt at 0730 dozing. Does awaken easily to verbal stimuli and is drowsy but oriented and will answer questions. With bipap mask off speech is clear although pt constantly 'grunts/moans' throughout speech. Overall states she does not feel good.
States she is tired and that her breathing is tired. Skin- remains with macerated area on the inside of the R upper lip/mouth and sternal area is ecchymotic purple. Pt will admit to tenderness if chest is touch and discomfort with breathing.
Respirs- Rec'd pt on Bipap 18/10 +15L with sats of 97%- changed over around 0815 to 15L midflow with sats of 93-96%. Off the bipap respirs are shallow and does get easily WALLIS. BS are coarse and decreased throughout. Coughing a weak moist non-prod
cough. Monitor SR with border 1st'avb and isolated PVC. + pulses. edema -tr gen anasarca- mostly arms. VS as documented. Remains on Heparin gtt via RIJ TLC-site wnl Currently at 1200 units/hr. Abd is round/obese with hypoactive BS. Passing some
flatus but no stool. L nare feeding tube intact at the 65 cm harini. Placement ausculated. Meds given via feeding tube. Thermistor dubon intact for yellow urine. Lasix given as ordered. Capped int intact LAC. Skin and mouth care given. Mouth tends to
get dry. in and at the bedside. Plan of care reviewed with pt and her . Call grant in reach.
[2024-08-26] MEDS: KCL ELIXIR 40 MEQ TUBE (10:36)
[2024-08-26] MEDS: COREG 3.125 MG PO ×2 (10:36→20:19)
--- NOTE | 2024-08-26 10:40 | PTCARENOTE ---
KCL 40 meq given via feeding tube along with Coreg. PTT sent. Pt back on Bipap as she was starting to feel more tired and wanted to rest. Just keeps saying ' I don't feel good' when asked.
[2024-08-26 11:07] LABS: APTT 74.6 Sec (23.4-35.0)
--- NOTE | 2024-08-26 11:10 | PTCARENOTE ---
Ptt 74.6 - Heparin gtt remains at 1200 units/Hr
--- NOTE | 2024-08-26 11:50 | W.PN.INTV ---
Today's Communication / Plan
Recommendations
Continue IV diuretics
Follow renal function and replete electrolytes
Continue antibiotics ceftriaxone/doxycycline for additional 2 to 3 days
Incentive spirometry
Oxygen for mentation to maintain pulse ox above 88%
Noninvasive mechanical ventilation with naps and at bedtime
Speech evaluation
Bowel regimen
Follow H&H-heme test when able.
Assessment
-
83-year-old female with history of coronary disease distant bypass surgery 1997, atrial fibrillation on amiodarone and Eliquis at 2.5 mg twice a day who presents with 2 to 3-week history of shortness of breath. Cording to Yash[facility], patient
refused evaluation but was seen as a routine visit by primary 08/21 was instructed to go to the ED. Found to be hypoxic, thought to be heart failure with elevated troponin. Also found to be anemic. On 08/22 developed cardiac arrest followed by 20
minutes of high-quality CPR with ROSC, intubated and transferred to ICU 08/22
Acute hypoxic respiratory failure
Intubated 08/22
Extubated 08/25/2024
Code 9, 20 minutes high-quality CPR (Epi x 5, Atropine x 1, bicarb, IVF, intubated)
Bilateral patchy infiltrates, suspected right upper lobe consolidation
Pneumonia versus patchy heart failure
COVID, influenza negative at time of admission
Shortness of breath x 3 weeks
History of falls, syncope
Twice in the last 3 weeks
Anemia, hemoglobin 9.5
Leukocytosis
Acute renal insufficiency, creatinine 2.1
Baseline 1.4-1.6
Acute transaminitis, likely secondary to cardiac arrest
Conditions present prior to admission
History of CKD baseline creatinine 1.4
History of syncope, suspected orthostasis per outpatient records
Atrial fibrillation on Eliquis 2.5 mg twice a day
Coronary disease history of bypass surgery
s/p [facility] 01/17/2021: Successful stenting of mid SVG OM2 graft and distal SVG to OM 2 graft
History of heart failure, elevated filling pressures per catheterization 2020
History of stroke 1997
GERD/peptic ulcer disease
Diabetes
Hypertension/hyperlipidemia
Hypoxia on home oxygen, details unclear
Distant tobacco history
Plan/recommendations
Extubated 08/23/2024 to intermittent BiPAP
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
Extubated 08/25/2024.
-
Salient features include hypoxic event with cardiac arrest with ROSC following high-quality CPR
Chest x-ray with bilateral patchy infiltrates suggestive of possible right upper lobe pneumonia
Patient has had 2 to 3 weeks of shortness of breath per prior admission.
-
Acute hypoxemic and hypercapnic respiratory failure: Pulmonary edema, possibly aspiration event, splinting due to chest pain post CPR.
Continue oxygen supplementation-currently on 12 L mid flow and BiPAP
continue noninvasive mechanical ventilation intermittently, risk of hypercapnia. No change on noninvasive ventilator settings.
ABG 08/25/2024: 7.44/38/103
Avoid sedatives
Encourage incentive spirometry
Patient not bronchospastic on exam
-
Continue antibiotics for presumed pneumonia, dqeorzylz-fbsdymac-lkcyjwnmkia/Doxy/day #4 on antibiotic, complete 5 to 7 days
Leukocytosis trending lower
Afebrile
Urine culture negative
Respiratory culture with normal respiratory demetria.
Blood culture pending
Influenza negative
-
Dopplers negative for DVT left upper extremity
Lower extremity Dopplers negative as well
Acute on chronic heart failure with reduced ejection fraction.
Echocardiogram with LV and RV dysfunction, EF 30%. Progressive per report
Pulmonary edema/systolic heart failure
currently heparin drip.Given atrial fibrillation. Follow PTT. Continue for now until hemoglobin stabilizes.
IV Lasix twice a day.
Chest x-ray pulmonary edema pattern.
Cardiology following, eventual ischemic evaluation.
-
Acute kidney injury on chronic kidney disease.
Follow potassium. Currently balance. Continue to replete as necessary.
Follow creatinine
-
Differential also includes thromboembolic process
Less likely given resolution
Patient on chronic Eliquis therapy although 2.5 mg twice a day in the outpatient setting for atrial fibrillation.
For now continue heparin drip for A-fib. Follow PTT.
Transition to oral anticoagulation once able to tolerate orals.
-
Patient with history of syncope which appears to be chronic upon reviewing outpatient records
Thought to be due to orthostasis
Mildly increased LFTs: Improving. Possibly ischemic.
Anemia noted: So far no evidence for acute bleeding- states that she had had bleeding in the past.
Repeat H&H later today
Abdominal exam is benign
Heme test when able
Patient has not moved her bowels
Bowel regimen started
Continue to follow closely
DVT prophylaxis: Was on Eliquis 2.5 mg twice a day, heparin drip started. Mechanical prophylaxis as well
GI prophylaxis: Protonix
N.p.o. for now-Dobbhoff tube in place.
Speech evaluation, hopefully can advance diet.
Reviewed at length with critical care nursing, respiratory care, cardiology, primary service
updated by Dr. Fernando 08/24/2024 and 08/25/2024
Critical care statement: A total of 31 minutes of critical care time was provided for this patient today. This includes management of unstable vital signs, evaluation of the patient at bedside, reviewing the patient's pertinent medical records
including ventilator settings, arterial blood gases, radiographs, microbiology, laboratory evaluations and discussion with primary team, critical care nursing, and respiratory therapy.
Subjective Dataa
Subjective Data
Date of Service:
Date of Service: August 26, 2024
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
Subjective:
Remains intermittently on noninvasive mechanical ventilation
Remains on oxygen supplementation
No significant phlegm production or hemoptysis
Review of Systems
General: Fever (n)
Cardiopulmonary: Dyspnea and Dyspnea on Exertion
GI: Abdominal Pain (n) and Nausea (n)
Neuro: Headache (n)
Objective Data
Data Reviewed
Vital Signs / I&O / Oxygen:
Vital Signs
Temp Pulse Resp BP Pulse Ox
98.6 F 97 29 143/78 89
08/26/24 11:00 08/26/24 11:00 08/26/24 11:00 08/26/24 11:00 08/26/24 11:00
Intake and Output
08/25/24 08/26/24 08/27/24
06:59 06:59 06:59
Intake Total 818.2 / 856.2 705 / 717 60 / 60
Output Total 1285 / 1285 2535 / 2660 565 / 565
Balance -466.8 / -428.8 -1830 / -1943 -505 / -505
SaO2 [CPAP/PSV] 95
SaO2 [A/C] 96
SaO2 89
Nasal Cannula flow liters per 6
minute
Physical Exam
General: Comfortable and Other (Right IJ)
HEENT: Normocephalic and Other (ETT in place.)
Cardiovascular: S1-S2, Regular Rhythm, Murmur (n) and Rub (n)
Respiratory: Wheeze (n), Crackles (Few scattered), Rhonchi (n) and Non-Labored Respirations
GI: Soft, Non Distended and Non Tender
Neurology: Awake, Alert and No Motor Deficits
Skin: Cyanosis (n), Jaundice (n) and Rash (n)
Labs/Micro/Reports
Lab Data
08/26/24 03:26
Laboratory Results
08/26/24 08/26/24
03:26 10:35
APTT 124.1 H 74.6 H
Microbiology
08/24/24 15:58 Blood/Venous Blood Culture - Preliminary
No Growth in 24 hours- Final report to follow
08/24/24 15:58 Blood/Venous Blood Culture - Preliminary
No Growth in 24 hours- Final report to follow
08/22/24 13:37 Endotracheal Respiratory Culture - Final
Usual Respiratory Demetria
08/22/24 13:37 Endotracheal Gram Stain - Final
08/22/24 13:37 Urine Urine Culture - Final
NO GROWTH
[2024-08-26 12:03] LABS: Glucose - Point of Care 191 mg/dl (70-99)
--- NOTE | 2024-08-26 12:35 | PTOTSP ---
Speech Language Pathology
Pt seen for dysphagia tx. P.O. trials of ice chips and thin liquids provided. No oral difficulty noted with limited consistencies trialed. No overt coughing with ice chips or thin liquids via pipetted straw. However, with sip via straw,
significant prolonged, wet coughing episode noted. Further trials deferred. Pt is at a high risk for aspiration given multiple intubations, current respiratory status, and generalized weakness.
Recommend:
(1) NPO
(2) Oral care 4x/day with suctioning as needed
(3) Allow ice chips sparingly post oral care given supervision per Aspiration Risk Hydration Protocol (ARHP)
(4) Meds via DHT
(5) Will consider VSE as needed once more medically stable
(6) WAITER/WAITRESS CLUB to continue to follow
[2024-08-26] MEDS: MIRALAX 17 GRAMS PO (12:36)
[2024-08-26] MEDS: FEOSOL 325 MG PO (12:36)
[2024-08-26] MEDS: TYLENOL 650 MG TUBE (12:45)
--- NOTE | 2024-08-26 13:00 | PTCARENOTE ---
Pt rested for a few hours back on Bipap and stated she was able to get some sleep but overall admits to still being very tired. Back on Midflow currently 15L with sats of 95%. Still with very moist non-prod cough and continued shallow respirs and
tachypnea/dyspnea at rest and increased with exertion. Medicated with Tylenol 650 mg via tube for 5/10 sternal discomfort when taking breaths and at rest. Also given Miralax as she has not had a BM since admission. Speech therapy in to see pt and is
limiting pt few ice chips as she coughed with water. Will talk to Dr. Fernando about tube feeds. Turned and repositioned. Skin and mouth care given. Call grant in reach. at the bedside.
[2024-08-26] MEDS: STERILE WATER FOR INJECTION 10 ML IV (14:37)
[2024-08-26] MEDS: ROCEPHIN 1000 MG IV (14:37)
[2024-08-26] MEDS: FLUSH (NSS) 1 FLUSH IV (14:39)
--- NOTE | 2024-08-26 15:30 | PTCARENOTE ---
Sat on bedpan for a while with no results. Currently Tube feeds started Jevity 1.5 at 20 ml/hr with 25 ml/hr via L nare feeding tube. Pt will continue to ask for ice chips and overall is tolerating them. Has her intermittent moist non-prod cough but
does not seem related to swallowing ice chips. Repositioned. Skin care given. Mouth care given.
--- NOTE | 2024-08-26 15:33 | W.PN.HOSP.TC ---
Today's Communication/Plan
-
Assessment / Plan
Assessment / Plan
In-hospital cardiac arrest
-Believed to be respiratory driven as hypoxia and not wearing oxygen seems to be a leading cause
--Bradycardia down PEA arrest
--S/p high-quality CPR
--ROSC achieved after multiple doses of epinephrine
Acute hypoxic hypercapnic respiratory failure secondary to pulmonary edema vs splinting from CPR vs pna or multifactorial
-Extubated on 08/25
-On bipap
-Continue IV Diuretics
-Continue IV Atb
-GI prophylaxis
Shock cardiogenic or medication induced with being on propofol vs septic
-Resolved
Acute on chronic HFrEF, 30%, NYHA II-IV
-IV Lasix BID
-GDMT on hold as on pressor support
PAFib now in SR
-Continue amio
-Eliquis held
-Continue Hep gtt, hep protocol, q6h ptt
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
-Monitor UOP
-Avoid Nephrotoxins and hypotension
-IV Diuretics
Acute ischemic hepatitis, improving as expected
-Elevated transaminases likely due to cardiac arrest, shock.
Troponin elevation -presumably acute nonischemic myocardial injury. Patient never had complaints of chest pain according to cardiology.
DM2 with hyperglycemia/hypoglycemia - hemoglobin A1c 9.0%. At home she is on glimepiride 4 mg daily, Lantus 35 units daily, Lantus 20 units at bedtime. Hold glimepiride in the hospital.
Stop Lantus, change corrective insulin to low resistance scale.
PAD -history of right lower extremity stenting.
CAD/CABG -CABG in 1997, four-vessel. With prior stents.
Paroxysmal atrial fibrillation -continue amiodarone, now on IV heparin. Resume Eliquis prior to discharge.
Essential hypertension -currently in shock requiring vasopressors.
Acute anemia -baseline hemoglobin 12 in June, admission hemoglobin 9.7, hemoglobin 8.3 today. Monitor on anticoagulation.
Hyperlipidemia -on atorvastatin.
Hypothyroidism - levothyroxine.
History of GI bleed -history of Dieulafoy lesion status post clipping. History of ruptured duodenal vein in 2015.
Obesity due to excess calories
full code
Anticipated Discharge: > 48 hours
Subjective/Interval History
-
Date of Service: August 26, 2024
seen and examined
now on bipap
off pressors
following commands
at bedisde
Objective Data
-
Labs:
Laboratory Results
08/26/24 08/26/24 08/26/24
03:26 06:00 10:35
WBC 11.5 H Cancelled
Hgb 7.8 L Cancelled
Hct 25.0 L Cancelled
Plt Count 230 Cancelled
APTT 124.1 H 74.6 H
Sodium 145
Potassium 3.8
Chloride 108 H
Carbon Dioxide 26
BUN 75 H
Creatinine 2.0 H
Glucose 137 H
Calcium 8.5
Vital Signs:
Vital Signs
Temp Pulse Resp BP Pulse Ox
98.6 F 97 29 143/78 95
08/26/24 11:00 08/26/24 11:00 08/26/24 11:00 08/26/24 11:00 08/26/24 12:40
I&O
08/25/24 08/26/24 08/27/24
06:59 06:59 06:59
Intake Total 818.2 / 856.2 705 / 717 234 / 234
Output Total 1285 / 1285 2535 / 2660 1015 / 1015
Balance -466.8 / -428.8 -1830 / -1943 -781 / -781
[2024-08-26 17:21] LABS: APTT 89.8 Sec (23.4-35.0)
[2024-08-26 17:21] LABS: Glucose - Point of Care 246 mg/dl (70-99)
--- NOTE | 2024-08-26 18:00 | PTCARENOTE ---
Back on Bipap since around 1600 - Drowsy overall today but does easily arouse- mostly just wants ice chips. Oral care given prior to going back on Bipap and will give a random ice chip with oral care - however with Bipap mask off easily desats to
the low 80's- with a brief low of 77%. BS remain coarse. VS as documented. PTT rechecked per protocol and in theraputic range - at 89.8. Infusing via RIJ TLC. Tube feeds continue. Repositioned. Call grant in reach.
[2024-08-26] MEDS: NOVOLOG FLEXPEN-LOW RESISTANCE 2 UNITS SC (18:17)
--- NOTE | 2024-08-26 18:48 | PTCARENOTE ---
Back on Bipap since around 1600 - Drowsy overall today but does easily arouse- mostly just wants ice chips. Oral care given prior to going back on Bipap and will give a random ice chip with oral care - however with Bipap mask off easily desats to
the low 80's- with a brief low of 77%. BS remain coarse. Overall is just profoundly weak and everything is an effort for her. Will moan with respirs. VS as documented. PTT rechecked per protocol and in theraputic range - at 89.8. Infusing via RIJ
TLC. Tube feeds continue. Repositioned. Call grant in reach.
--- NOTE | 2024-08-26 19:45 | PTCARENOTE ---
assumed care, AAOx3 KNIGHT and denies pain, NSR on the monitor c PVCs, +1 anasarca weak pulses, moist occasional cough, shallow breaths diminished and coarse throughout, BIPAP 18/10 15L SpO2 94%, round obese BSx4, Jevity TF 20ml/25 H2O flush, DHT L
nare 65cm, temp sensing dubon yellow output, R TL IJ, Hep 12ml, call grant within reach, pt able to make needs known, otherwise refer to documentation.
[2024-08-26] MEDS: COLACE LIQUID 100 MG PO (20:18)
[2024-08-26] MEDS: TYLENOL ORAL SOLUTION 650 MG TUBE (20:18)
[2024-08-26] MEDS: LIPITOR 80 MG TUBE (23:18)
[2024-08-26 23:25] LABS: Glucose - Point of Care 291 mg/dl (70-99)
[2024-08-26] MEDS: NOVOLOG FLEXPEN-MODERATE RESISTANCE 5 UNITS SC (23:37)
[2024-08-26] MEDS: ROXICODONE 5 MG PO (23:47)
[2024-08-27] VITALS (30 sets, daily range): BP systolic 110–155; BP diastolic 54–85; PULSE 2–90; BMI 31.5
--- NOTE | 2024-08-27 00:54 | PTCARENOTE ---
systems reviewed, multiple attempts @ BM on bedpan, pt c/o sternum pain Tylenol and burak given per MAR, otherwise refer to documentation.
[2024-08-27] MEDS: VIBRAMYCIN 260 MG IV (03:07)
[2024-08-27 03:35] LABS: Hematocrit 23.7 % (37.0-47.0); Hemoglobin 7.5 g/dL (12.0-16.0); Mean Corp Hgb Conc. 31.6 g/dL (33.0-37.0); Mean Corpuscular Hgb 33.3 pg (27.0-31.0); Mean Corpuscular Volume 105.3 fL (81.0-99.0); Mean Platelet Volume 10.4 fL (7.4-10.4); Platelet Count 233 10^3/uL (130-400); Red Blood Cell Count 2.25 10^6/uL (4.20-5.40); Red Cell Dist. Width 14.8 % (11.5-14.5)
[2024-08-27 03:47] LABS: APTT 76.9 Sec (23.4-35.0)
[2024-08-27 04:42] LABS: Blood Urea Nitrogen 76 mg/dl (7-17); Calcium 8.9 mg/dl (8.4-10.2); Carbon Dioxide 30 mmol/L (22-30); Chloride 108 mmol/L (98-107); Estimated Creatinine Clearance 23 ml/min; Glucose 262 mg/dl (70-99); Potassium 3.5 mmol/L (3.5-5.1); Sodium 146 mmol/L (135-145); Triglycerides 259 mg/dl (10-149); eGFR 26.04
[2024-08-27 05:35] LABS: Glucose - Point of Care 301 mg/dl (70-99)
[2024-08-27] MEDS: SYNTHROID 75 MCG TUBE (05:48)
[2024-08-27] MEDS: NOVOLOG FLEXPEN-HIGH RESISTANCE 10 UNITS SC (05:48)
--- NOTE | 2024-08-27 05:58 | PTCARENOTE ---
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
[2024-08-27] MEDS: KCL ELIXIR 20 MEQ TUBE (06:05)
--- NOTE | 2024-08-27 07:44 | W.PN.CD ---
Today's Communication / Plan
-
Agree hold AM dose lasix
IV abx
Impression / Plan
-
Primary Cards: Yamile
Cardiac arrest
- presumed hypoxic
- ECG shows unchanged lateral ST changes
- Echocardiogram with EF of 30%.
- Abx for sepsis
- pressor support and weaned
Mawyd-bq-mrgxvli HFrEF ICMO w/ 30%(global HK):
-GDMT on hold given requirement of pressors, but now bp with room for additional medications
-will add back low dose bb, will hold off on ARB/ARNI until completely euvolemic and NARCISO improves
-Renal function limits MRA and SGLT2 right now
-Continue Lasix 40 mg IV BID.
Abnormal troponin:
-will need ischemia eval at some point given reduced EF
- however, given severe critical illness will need to wait for some recovery
CAD with CABG and stenting:
- ischemic eval at some point, at this time would delay for renal recovery
-On ASA- continue, as well as statin and BB- continue
PAF:
-Currently in sinus rhythm.
-Continue PO amiodarone.
-Continue heparin drip--given anemia of unknown etiology.
-typically on Eliquis
Anemia:
-07/03/24 hgb 12.4 now 7.8
-stable without transfusion in last 24 hours but there has been significant decline
-w/u per primary team
NARCISO:
-Cr 2.0 likely 2/2 worsening sepsis and hypotension
-Management as per primary team.
Hyperkalemia:
-now hypokalemic yesterday with diuresis
-continue to monitor with diuresis
SQ ICD is in place
Subjective: Continues feeling awful, breathing maybe slightly improved
at bedside.
Data:
Cath 01/17/21: Severe moapa triple-vessel CAD as described with patent PAIGE-LAD and patent but severely diseased SVG-OM2. In addition to the severe disease in the vein graft, there is new significant mid LAD disease distal to the XAVIER graft
touchdown site. Successful stenting of 90% mid body SVG-OM2 graft lesion using 4.0 x 23 Xience Estefania GEO. Successful stenting of 60% distal SVG-OM2 graft lesion using 4.0 x 12 Xience Estefania GEO.
Remains critically ill, prognosis guarded
cct 31 minutes.
Physical Exam
Vital Signs/Labs
Vital Signs
Temp Pulse Resp BP Pulse Ox
98.6 F 91 21 136/66 92
08/27/24 04:30 08/27/24 06:00 08/27/24 06:00 08/27/24 06:00 08/27/24 06:00
08/26/24 08/27/24 08/28/24
06:59 06:59 06:59
Actual Weight 179 lb 3.773 oz 177 lb 11.081 oz
08/27/24 03:17
08/27/24 03:17
PT 17.7 Sec (11.4-14.6) H 08/22/24 12:44
INR 1.40 08/22/24 12:44
APTT 76.9 Sec (23.4-35.0) H 08/27/24 03:17
Magnesium 2.1 mg/dl (1.6-2.3) 08/26/24 03:26
Triglycerides 259 mg/dl (10-149) H 08/27/24 03:17
08/21/24
10:19
Swy-B-Awxtkoqogde Pept [id number]
Physical Exam
Constitutional: No acute distress
EENT: Anicteric
Cardiovascular: Rhythm & rate is regular and Pedal edema is absent
Respiratory: Respiratory effort normal and Crackles Present (faint)
GI: Soft
Neuro/Psych: AO x 3
Data Reviewed
-
Date of Service: August 27, 2024
EKG: Tracing Personally Visualized and interpreted (sr)
Echo: Tracing Personally Visualized and interpreted and Report Reviewed by me
Labs: Labs Reviewed by me
[2024-08-27] MEDS: LASIX IV ×2 (08:05→15:55)
[2024-08-27] MEDS: THERAGRAN 1 TABLET PO (08:09)
[2024-08-27] MEDS: VITAMIN C 500 MG TUBE (08:09)
[2024-08-27] MEDS: PACERONE 100 MG TUBE (08:09)
[2024-08-27] MEDS: COLACE LIQUID 100 MG PO ×2 (08:09→19:58)
[2024-08-27] MEDS: LOW STRENGTH ASPIRIN 81 MG TUBE (08:10)
[2024-08-27] MEDS: COREG 3.125 MG PO ×2 (08:10→19:57)
--- NOTE | 2024-08-27 08:30 | PTCARENOTE ---
Assumed care of patient. Pt rec'd on bipap 18/10 w/ 15L...sats 98-100%. Bipap removed by RPT and pt placed on 15L MFNC...sats > 92%. Pt A&Ox3. Pleasant. Overall feels 'poorly' but has no definitive c/o pain. Able to KNGIHT's but weak. S1 S2 reg
w/ NSR on monitor...intermittent PVC's noted. Weak PP. Trace generalized edema. Lungs diminished w/ coarse crackles/rhonchi throughout. Moist weak NPC. Encouraged coughing and deep breathing. Left nare dhf (65cm) w/ Jevity 1.5 @ 20ml/hr w/
25ml/hr water flushes. Abdomen obese...+BS. Incontinent of small amt of liquid brown stool. Temp sensing dubon draining kermit urine...order for q1h hourly urines. Dubon care done. Skin pale in color. Sacrum intact. Left tip of tongue w/
purple ecchymosis. Sternal bruising noted. RIJ TLC w/ heparin gtt infusing @ 1200 units/hr. VS documented. Call grant within reach. Will continue to monitor.
--- NOTE | 2024-08-27 09:30 | PTCARENOTE ---
Acapella and IS done w/ patient. Continually encouraging pt to cough and deep breath.
--- NOTE | 2024-08-27 11:30 | PTCARENOTE ---
Pt attempted bedpan. Unsuccessful. Scant liquid brown stool noted. Pt disempacted for large amt of hard brownish black pebble sized stool.
[2024-08-27 11:48] LABS: Glucose - Point of Care 235 mg/dl (70-99)
[2024-08-27] MEDS: NOVOLOG FLEXPEN-HIGH RESISTANCE 4 UNITS SC ×2 (11:51→23:20)
[2024-08-27] MEDS: FEOSOL 325 MG PO (11:51)
[2024-08-27] MEDS: LANTUS 0.15 UNITS SC ×2 (11:51→23:20)
--- NOTE | 2024-08-27 12:00 | PTCARENOTE ---
No major changes in physical assessment. Currently sleeping comfortably on bipap w/ at bedside. VS documented. Call grant within reach.
--- NOTE | 2024-08-27 12:33 | W.PN.INTV ---
Today's Communication / Plan
Recommendations
Continue BiPAP intermittently
Continue oxygen supplementation
Hold diuresis for today
Continue antibiotics
Incentive spirometry
Acapella device
Nebulizers as needed
Increase mobility as able
Tube feedings at goal, speech evaluation
Follow H&H
Heparin drip-follow PTT.
Maintain ICU level of care for now
Assessment
-
83-year-old female with history of coronary disease distant bypass surgery 1997, atrial fibrillation on amiodarone and Eliquis at 2.5 mg twice a day who presents with 2 to 3-week history of shortness of breath. Cording to Pat, patient
refused evaluation but was seen as a routine visit by primary 08/21 was instructed to go to the ED. Found to be hypoxic, thought to be heart failure with elevated troponin. Also found to be anemic. On 08/22 developed cardiac arrest followed by 20
minutes of high-quality CPR with ROSC, intubated and transferred to ICU 08/22
Acute hypoxic respiratory failure
Triggering event: Hypoxic event with cardiac arrest with ROSC following high-quality CPR
Chest x-ray with bilateral patchy infiltrates suggestive of possible right upper lobe pneumonia
Patient has had 2 to 3 weeks of shortness of breath per prior admission.
Intubated 08/22
Extubated 08/25/2024
Code 9, 20 minutes high-quality CPR (Epi x 5, Atropine x 1, bicarb, IVF, intubated)
Bilateral patchy infiltrates, suspected right upper lobe consolidation
Pneumonia versus patchy heart failure
COVID, influenza negative at time of admission
Shortness of breath x 3 weeks
History of falls, syncope
Twice in the last 3 weeks
Anemia, hemoglobin 9.5
Leukocytosis
Acute renal insufficiency, creatinine 2.1
Baseline 1.4-1.6
Acute transaminitis, likely secondary to cardiac arrest
Conditions present prior to admission
History of CKD baseline creatinine 1.4
History of syncope, suspected orthostasis per outpatient records
Atrial fibrillation on Eliquis 2.5 mg twice a day
Coronary disease history of bypass surgery
s/p [facility] 01/17/2021: Successful stenting of mid SVG OM2 graft and distal SVG to OM 2 graft
History of heart failure, elevated filling pressures per catheterization 2020
History of stroke 1997
GERD/peptic ulcer disease
Diabetes
Hypertension/hyperlipidemia
Hypoxia on home oxygen, details unclear
Distant tobacco history
Plan/recommendations
-
Acute hypoxemic and hypercapnic respiratory failure: Pulmonary edema, possibly aspiration event, splinting due to chest pain post CPR.
Extubated 08/23/2024 to intermittent BiPAP
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
Extubated 08/25/2024.
Continue oxygen supplementation-currently on 12 L mid flow and BiPAP
continue noninvasive mechanical ventilation intermittently, risk of hypercapnia. No change on noninvasive ventilator settings.
ABG 08/25/2024: 7.44/38/103
Patient seems clinically better 1. Cooperative, alert, following commands.
Lung exam improved, less rhonchi. Better air movement. Able to take deep breath.
Avoid sedatives
Encourage incentive spirometry
Patient not bronchospastic on exam
-
Continue antibiotics for presumed pneumonia, ayewzjihl-iidptvfj-awyxyobpxaf/Doxy/day #5 on antibiotic, complete 7 days.
Chest x-ray 08/27/2024, continues to showed right lower lobe abnormality. Atelectasis/pneumonia. Small pleural effusion. Left lower lobe abnormality atelectasis versus pneumonia. Marked megaly
Persistent leukocytosis but patient afebrile.
Urine culture negative
Respiratory culture with normal respiratory lorraine.
Blood culture negative
Influenza negative
-
Dopplers negative for DVT left upper extremity
Lower extremity Dopplers negative as well
Acute on chronic heart failure with reduced ejection fraction.
Echocardiogram with LV and RV dysfunction, EF 30%. Progressive per report
Pulmonary edema/systolic heart failure
currently heparin drip.Given atrial fibrillation. Follow PTT. Continue for now until hemoglobin stabilizes.
Responding to diuresis, sodium is elevated, BUN increased. Hold diuresis for today -09/2024. Hopefully can restart tomorrow
Increased water flushes
Chest x-ray pulmonary edema pattern.
Cardiology following, eventual ischemic evaluation.
-
Acute kidney injury on chronic kidney disease.
Follow potassium.
Follow creatinine particularly on IV diuresis.
-
Differential also includes thromboembolic process-less likely
Continue heparin drip
Eventual transition to oral anticoagulation as previous admission
Mildly increased LFTs: Improving. Possibly ischemic.
Continue analgesia for sternal pain post CPR.
Minimize narcotics.
Anemia noted: So far no evidence for acute bleeding- states that she had had bleeding in the past. states that patient has chronic anemia
Follow H&H, no evidence for bleeding.
Abdominal exam is benign
Heme test when able
Patient has not moved her bowels
Bowel regimen started-hard stools small BM on 08/27/2024.
Benign abdominal exam
Continue to follow closely
Will transfuse if hemoglobin is 7 or lower.
Hyperglycemia: History of diabetes
Will start subcu long-acting insulin lower dose as compared to outpatient dosages.
DVT prophylaxis: Was on Eliquis 2.5 mg twice a day, heparin drip continues for now, follow PTT. Mechanical prophylaxis as well
GI prophylaxis: Protonix
N.p.o. for now-Dobbhoff tube in place. Tube feedings at goal
Ongoing speech evaluation, hopefully can advance diet.
Reviewed at length with critical care nursing, respiratory care, cardiology, primary service
updated by Dr. Fernando 08/24/2024 and 08/25/2024, 08/27/2024.
Critical care statement: A total of 31 minutes of critical care time was provided for this patient today. This includes management of unstable vital signs, evaluation of the patient at bedside, reviewing the patient's pertinent medical records
including ventilator settings, arterial blood gases, radiographs, microbiology, laboratory evaluations and discussion with primary team, critical care nursing, and respiratory therapy.
Subjective Dataa
Subjective Data
Date of Service:
Date of Service: August 27, 2024
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
Subjective:
Continues to be intermittently on BiPAP and requiring mid flow oxygen
Continues to report intermittent sternal pain, occasionally unable to take deep breath
Has difficulty expectorating at times.
Review of Systems
Cardiopulmonary: Dyspnea, Dyspnea on Exertion and Cough
GI: Abdominal Pain (n) and Nausea (n)
Objective Data
Data Reviewed
Vital Signs / I&O / Oxygen:
Vital Signs
Temp Pulse Resp BP Pulse Ox
98.8 F 83 17 126/67 93
08/27/24 12:14 08/27/24 10:30 08/27/24 10:30 08/27/24 10:00 08/27/24 10:30
Intake and Output
08/26/24 08/27/24 08/28/24
06:59 06:59 06:59
Intake Total 705 / 717 1613 / 1670 542 / 542
Output Total 2535 / 2660 2260 / 2300 240 / 240
Balance -1830 / -1943 -647 / -630 302 / 302
SaO2 [CPAP/PSV] 95
SaO2 [A/C] 96
SaO2 93
Nasal Cannula flow liters per 6
minute
Physical Exam
General: Comfortable and Other (Right IJ)
HEENT: Normocephalic and Other (ETT in place.)
Cardiovascular: S1-S2, Regular Rhythm, Murmur (n) and Rub (n)
Respiratory: Wheeze (n), Crackles (Few scattered), Rhonchi (n) and Non-Labored Respirations
GI: Soft, Non Distended and Non Tender
Neurology: Awake, Alert and No Motor Deficits
Skin: Cyanosis (n), Jaundice (n) and Rash (n)
Labs/Micro/Reports
Lab Data
08/27/24 03:17
08/27/24 03:17
Laboratory Results
08/26/24 08/27/24
17: 03:17
APTT 89.8 H 76.9 H
Microbiology
08/24/24 15:58 Blood/Venous Blood Culture - Preliminary
No Growth in 48 hours- Final report to follow
08/24/24 15:58 Blood/Venous Blood Culture - Preliminary
No Growth in 48 hours- Final report to follow
08/22/24 13:37 Endotracheal Respiratory Culture - Final
Usual Respiratory Lorraine
08/22/24 13:37 Endotracheal Gram Stain - Final
--- NOTE | 2024-08-27 13:19 | W.PN.HOSP.TC ---
Today's Communication/Plan
-
Assessment / Plan
Assessment / Plan
In-hospital cardiac arrest
-Believed to be respiratory driven as hypoxia and not wearing oxygen seems to be a leading cause
--Bradycardia down PEA arrest
--S/p high-quality CPR
--ROSC achieved after multiple doses of epinephrine
Acute hypoxic hypercapnic respiratory failure secondary to pulmonary edema vs splinting from CPR vs pna or multifactorial
-Extubated on 08/25
-On bipap
-Continue IV Diuretics
-Continue IV Atb
-GI prophylaxis
-Speech eval, VSE, NPO until cleared for diet, Conitnue TF via Dobhoff
Shock cardiogenic or medication induced with being on propofol vs septic
-Resolved
Acute on chronic HFrEF, 30%, NYHA II-IV
-IV Lasix BID
-GDMT on hold as on pressor support
PAFib now in SR
-Continue amio
-Eliquis held
-Continue Hep gtt, hep protocol, q6h ptt
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
-Monitor UOP
-Avoid Nephrotoxins and hypotension
-IV Diuretics
Acute ischemic hepatitis, improving as expected
-Elevated transaminases likely due to cardiac arrest, shock.
Troponin elevation -presumably acute nonischemic myocardial injury. Patient never had complaints of chest pain according to cardiology.
DM2 with hyperglycemia/hypoglycemia - hemoglobin A1c 9.0%. At home she is on glimepiride 4 mg daily, Lantus 35 units daily, Lantus 20 units at bedtime. Hold glimepiride in the hospital.
Stop Lantus, change corrective insulin to low resistance scale.
PAD -history of right lower extremity stenting.
CAD/CABG -CABG in 1997, four-vessel. With prior stents.
Paroxysmal atrial fibrillation -continue amiodarone, now on IV heparin. Resume Eliquis prior to discharge.
Essential hypertension -currently in shock requiring vasopressors.
Acute anemia -baseline hemoglobin 12 in June, admission hemoglobin 9.7, hemoglobin 8.3 today. Monitor on anticoagulation.
Hyperlipidemia -on atorvastatin.
Hypothyroidism - levothyroxine.
History of GI bleed -history of Dieulafoy lesion status post clipping. History of ruptured duodenal vein in 2015.
Obesity due to excess calories
full code
Anticipated Discharge: > 48 hours
Subjective/Interval History
-
Date of Service: August 27, 2024
seen and examined. no new compaints
on bipap
tolerating well
Objective Data
-
Labs:
Laboratory Results
08/27/24
03:17
WBC 12.0 H
Hgb 7.5 L
Hct 23.7 L
Plt Count 233
APTT 76.9 H
Sodium 146 H
Potassium 3.5
Chloride 108 H
Carbon Dioxide 30
BUN 76 H
Creatinine 1.9 H
Glucose 262 H
Calcium 8.9
Vital Signs:
Vital Signs
Temp Pulse Resp BP Pulse Ox
98.8 F 83 17 126/67 93
08/27/24 12:14 08/27/24 10:30 08/27/24 10:30 08/27/24 10:00 08/27/24 10:30
I&O
08/26/24 08/27/24 08/28/24
06:59 06:59 06:59
Intake Total 705 / 717 1613 / 1670 542 / 542
Output Total 2535 / 2660 2260 / 2300 240 / 240
Balance -1830 / -1943 -647 / -630 302 / 302
Physical Exam
-
General: Appears Chronically Ill and Obese
HEENT: Normocephalic and Atraumatic
Respiratory: Non Labored Respirations
Cardiac: Regular Rhythm and S1/S2
GI: Soft, Nontender, Nondistended and Normal Bowel Sounds
Skin: Warm
Neuro: Awake, Alert and Other (able to follow commands)
--- NOTE | 2024-08-27 13:46 | PN.CDI ---
CDI
- -
CDI:
Physician Documentation Request
Admit Date: 08/21/24 14:37
Dear Doctor Remigio,
Patient admitted for respiratory failure.
Selected Entries
08/25/24
08:00
Pressure injury appearance [Right Upper Lip] Ecchymotic -
purple
Ecchymotic -
red
Pressure injury stage [Right Upper Lip] Stage 2
Wound treatment comments [Right Upper Lip] Have been
repositioning
ETT toward the
L or center of
the mouth
Physician documentation of the type and location of wounds is required for compliant documentation. Based on the above clinical findings and your assessment, please provide the following in your progress note:
1. Location of the ulcer/wound, including laterality.
2. Type (etiology) of ulcer/wound:
- Diabetic ulcer
- Arterial (ischemic) ulcer
- Traumatic wound
- Venous stasis ulcer
- Pressure (decubitus) ulcer
- Non-healing surgical wound
- Other
- Unable to determine
3. For a non-pressure ulcer, please indicate the depth/severity:
- Limited to the breakdown of skin
- With fat layer exposed
- With necrosis of muscle
- With necrosis of bone
- Other
- Unable to determine
4. If a pressure ulcer, please also include the stage* of the ulcer:
- Stage 1 - Skin intact, non-blanchable redness
- Stage 2 - Partial thickness loss of dermis, includes intact or open blister
- Stage 3 - Full thickness tissue not including bone, tendon or muscle
- Stage 4 - Full thickness tissue loss, including exposed bone, tendon or muscle
- Unstageable - Full thickness loss in which the base of the ulcer is covered by slough (yellow, jhaveri, sanders, green or brown) and/or eschar (jhaveri, brown or black) in the wound bed.
- Unable to determine
Use of terms such as suspected, likely, concern for, or probable (associated with a specific diagnosis that is being evaluated, monitored, or treated as if it exists) are acceptable and can be coded in the inpatient setting, when documented at the
time of discharge.
Thank you,
Malorie Ibarra RN, BSN
CDI Specialist
Available via [place] text
Please use your independent medical judgment in providing your response.
*Source: National Pressure Ulcer Advisory Panel (NPUAP)
--- NOTE | 2024-08-27 13:52 | CM ---
CM following re: discharge planning.
Discussed in Rounds, reviewed pt's chart, met with pt. Per Rounds meeting, pt continues to be intermittently on BiPAP and requiring 15 L mid flow oxygen, continue supportive care.
PT and OT will evaluate the pt to determine a level of care at discharge.
D/c plan: uncertain at this time and will depend on pt's progress.
CM will follow with discharge plan updates as hospitalization progresses
[2024-08-27] MEDS: ROCEPHIN 1000 MG IV (13:59)
[2024-08-27] MEDS: STERILE WATER FOR INJECTION 10 ML IV (13:59)
[2024-08-27] MEDS: VIBRAMYCIN 100 MG TUBE (14:22)
--- NOTE | 2024-08-27 16:00 | PTCARENOTE ---
Pt currently on 15 [facility]...sats 98%. Assist x 2 to get OOB to chair. IS between 250.-500mls. Acapella completed. Pt resting comfortably in chair w/ visiting. Call grant within reach.
[2024-08-27] MEDS: NOVOLOG FLEXPEN-HIGH RESISTANCE SC (17:56)
[2024-08-27 18:06] LABS: Glucose - Point of Care 269 mg/dl (70-99)
[2024-08-27] MEDS: NOVOLOG FLEXPEN-HIGH RESISTANCE 7 UNITS SC (18:27)
[2024-08-27] MEDS: ROXICODONE 5 MG PO (19:58)
--- NOTE | 2024-08-27 20:00 | PTCARENOTE ---
assumed care, AAOx3 KNIGHT c/o 03/04 sternum pain refer to MAR, NSR on the monitor c PVCs, trace anasarca weak pulses, moist occasional cough, shallow breaths diminished, crackles and coarse throughout, midflow NC 12L SpO2 95%, round obese BSx4, Jevity
TF 30ml/50 H2O flush, DHT L nare 65cm, temp sensing dubon yellow output, R TL IJ, Hep 12ml, call grant within reach, pt able to make needs known, otherwise refer to documentation.
[2024-08-27] MEDS: HEPARIN 25000 UNITS/250 ML IV (22:24)
[2024-08-27] MEDS: LIPITOR 80 MG TUBE (22:24)
[2024-08-27 23:30] LABS: Glucose - Point of Care 226 mg/dl (70-99)
[2024-08-28] VITALS (35 sets, daily range): BP systolic 110–148; BP diastolic 48–71; PULSE 2–79; O2SAT 97; BMI 31.7
--- NOTE | 2024-08-28 00:36 | PTCARENOTE ---
systems reviewed, pt resting comfortably and denies pain, BIPAP 18/10 10L, otherwise refer to documentation.
[2024-08-28] MEDS: VIBRAMYCIN 100 MG TUBE ×2 (03:34→13:51)
[2024-08-28 03:52] LABS: Hematocrit 23.2 % (37.0-47.0); Hemoglobin 7.2 g/dL (12.0-16.0); Mean Corpuscular Volume 106.4 fL (81.0-99.0); Platelet Count 219 10^3/uL (130-400); Red Blood Cell Count 2.18 10^6/uL (4.20-5.40); Red Cell Dist. Width 15.1 % (11.5-14.5)
--- NOTE | 2024-08-28 04:00 | PTCARENOTE ---
systems reviewed, no changes from prior assessment otherwise refer to documentation.
[2024-08-28 04:01] LABS: APTT 87.8 Sec (23.4-35.0)
[2024-08-28 05:02] LABS: Blood Urea Nitrogen 83 mg/dl (7-17); Calcium 9.1 mg/dl (8.4-10.2); Carbon Dioxide 27 mmol/L (22-30); Chloride 108 mmol/L (98-107); Estimated Creatinine Clearance 24 ml/min; Glucose 155 mg/dl (70-99); Potassium 4.2 mmol/L (3.5-5.1); Sodium 144 mmol/L (135-145); eGFR 27.78
[2024-08-28] MEDS: NOVOLOG FLEXPEN-HIGH RESISTANCE 2 UNITS SC (05:57)
[2024-08-28] MEDS: SYNTHROID 75 MCG TUBE (05:58)
[2024-08-28 06:01] LABS: Glucose - Point of Care 195 mg/dl (70-99)
--- NOTE | 2024-08-28 07:30 | PTCARENOTE ---
Received pt on BiPap 18/10 with 8 liters oxygen. She awakens to verbal and tactile stimuli. She was informed of the plan of care for a video swallow exam today. She is drowsy and cannot keep her eyes opened. Following simple commands. Moaning with
movement. Right IJ TL CVC with Heparin @ 1200units/hr. Other 2 ports flushed and patent. + weak peripheral pulses. Trace to +1 anasarca. Breath sounds coarse, intermittent moist non-productive cough. She was encouraged to take slow deep breaths in
to recruit her lung tissue for gas exchange. She demonstrated and nodded her head in understanding. +BSX4. Left Nare DHT secured @ 65cm. No residual. Tolerating TF @ 30ml/hr with 50ml/hr water flush. Rivera secured with stat lock draining small
amounts of kermit urine. Ecchymosis noted on right upper with what appears to be a resolving infiltrate. I provided supportive care and reinforced the importance of coughing and deep breathing and getting OOB. She nodded her head in understanding.
Safe environment maintained.
--- NOTE | 2024-08-28 09:50 | PTCARENOTE ---
Pt was removed from the BiPap 18/10 w/6 liters by RPT at RN request. Plan for video swallow.
--- NOTE | 2024-08-28 09:55 | PTCARENOTE ---
Midflow 15 liters. Pulse ox 85%. at the bedside and is providing support and que for pt to take a deep breath and to breath through her nose. After approximately 20 minutes her pulse ox was 100%. Will transfuse 1 unit PRBC as ordered, pt and
aware of the plan of care. Plan for video swallow around 12:30pm.
--- NOTE | 2024-08-28 10:02 | W.PN.CD ---
Today's Communication / Plan
-
IV diuresis
BIPAP
Recommend checking Hgb this afternoon, if elevated then would stop heparin gtt and look for bleeding
Impression / Plan
-
Primary Cards: Moriahlatricearvind
Cardiac arrest
- presumed hypoxic
- ECG shows unchanged lateral ST changes
- Echocardiogram with EF of 30%.
- Abx for sepsis
Worsening A 07/03/24 hgb 12.4 now 7.2
- check Hgb this afternoon if continue downtrending low threshold to stop heparin gtt and look for sources of bleeding
- Holding Eliquis for now
[id number] HFrEF ICMO w/ 30%(global HK):
-GDMT on hold given requirement of pressors, but now bp with room for additional medications
-will add back low dose bb, will hold off on ARB/ARNI until completely euvolemic and NARCISO improves
-Renal function limits MRA and SGLT2 right now
-Continue Lasix 40 mg IV BID.
Abnormal troponin:
-will need ischemia eval at some point given reduced EF
- however, given severe critical illness will need to wait for some recovery
CAD with CABG and stenting:
- ischemic eval at some point
-On ASA- continue, as well as statin and BB- continue
NARCISO:
-Cr 1.8 likely 2/2 worsening sepsis and hypotension
-Management as per primary team.
Hyperkalemia:
-resolved
SQ ICD is in place
Subjective: On BIPAP discussed plan with nurse and
at bedside.
Data:
Cath 01/17/21: Severe tolowa dee-ni' triple-vessel CAD as described with patent PAIGE-LAD and patent but severely diseased SVG-OM2. In addition to the severe disease in the vein graft, there is new significant mid LAD disease distal to the XAVIER graft
touchdown site. Successful stenting of 90% mid body SVG-OM2 graft lesion using 4.0 x 23 Xience Estefania GEO. Successful stenting of 60% distal SVG-OM2 graft lesion using 4.0 x 12 Xience Estefania GEO.
Remains critically ill, prognosis guarded
cct 31 minutes.
Physical Exam
Vital Signs/Labs
Vital Signs
Temp Pulse Resp BP Pulse Ox
97.7 F 68 25 110/50 85
08/28/24 08:23 08/28/24 09:30 08/28/24 09:30 08/28/24 09:00 08/28/24 09:50
08/27/24 08/28/24 08/29/24
06:59 06:59 06:59
Actual Weight 177 lb 11.081 oz 179 lb 0.246 oz
08/28/24 03:40
08/28/24 03:40
PT 17.7 Sec (11.4-14.6) H 08/22/24 12:44
INR 1.40 08/22/24 12:44
APTT 87.8 Sec (23.4-35.0) H 08/28/24 03:40
Magnesium 2.1 mg/dl (1.6-2.3) 08/26/24 03:26
Triglycerides 259 mg/dl (10-149) H 08/27/24 03:17
08/21/24
10:19
Mhq-X-Qnshxkifyki Pept 41724
Physical Exam
Constitutional: No acute distress
EENT: Anicteric
Cardiovascular: Rhythm & rate is regular and Pedal edema is absent
Respiratory: Respiratory effort normal and Lungs clear to auscul.
GI: Soft
Neuro/Psych: Alert and Oriented
Data Reviewed
-
Date of Service: August 28, 2024
Medical Decision Making: Reviewed Test Results
EKG: Tracing Personally Visualized and interpreted (sr)
Echo: Tracing Personally Visualized and interpreted and Report Reviewed by me
Labs: Labs Reviewed by me
[2024-08-28] MEDS: LASIX 40 MG IV ×2 (10:40→17:00)
[2024-08-28] MEDS: LOW STRENGTH ASPIRIN 81 MG TUBE (10:40)
[2024-08-28] MEDS: VITAMIN C 500 MG TUBE (10:42)
[2024-08-28] MEDS: CLARITIN PO (10:42)
[2024-08-28] MEDS: PACERONE 100 MG TUBE (10:42)
[2024-08-28] MEDS: LANTUS 0.15 UNITS SC ×2 (10:58→21:35)
[2024-08-28] MEDS: NOVOLOG FLEXPEN-HIGH RESISTANCE 4 UNITS SC (11:58)
[2024-08-28 12:08] LABS: Glucose - Point of Care 237 mg/dl (70-99)
--- NOTE | 2024-08-28 12:35 | PTOTSP ---
Speech Language Pathology
VIDEOFLUOROSCOPIC SWALLOWING EXAMINATION (VSE) completed. Mod oral dysphagia noted. DHT in place for study. Deferred puree and regular solids given severity of swallow function. Severe pharyngeal dysphagia noted. Aspiration of all (thin liquid
via tsp, thin liquid via straw, mildly thick liquids via tsp, moderately thick liquids via 1/4 tsp) with ineffective cough response (PAS 7). Pt is at a high risk for aspiration.
Recommend:
(1) NPO
(2) Oral care 4x/day with suctioning as needed
(3) Meds via DHT
(4) Allow ice chips sparingly post oral care given supervision per Aspiration Risk Hydration Protocol (ARHP)
(5) Consider ENT consult if voicing does not improve
(6) BROTHEL KEEPER to continue to follow
--- NOTE | 2024-08-28 13:02 | W.PN.INTV ---
Today's Communication / Plan
Recommendations
Continue diuresis
Transfusion today
Follow daily BMPs
Intermittent BiPAP
Mid flow oxygen, wean down as able
Continue bowel regimen
Complete antibiotics tomorrow
Encourage incentive spirometry
Increase mobility
After transfusion will transfer to intermediate care unit.
Pulmonary will follow
Assessment
-
83-year-old female with history of coronary disease distant bypass surgery 1997, atrial fibrillation on amiodarone and Eliquis at 2.5 mg twice a day who presents with 2 to 3-week history of shortness of breath. Cording to Pat, patient
refused evaluation but was seen as a routine visit by primary 08/21 was instructed to go to the ED. Found to be hypoxic, thought to be heart failure with elevated troponin. Also found to be anemic. On 08/22 developed cardiac arrest followed by 20
minutes of high-quality CPR with ROSC, intubated and transferred to ICU 08/22
Acute hypoxic respiratory failure
Triggering event: Hypoxic event with cardiac arrest with ROSC following high-quality CPR
Chest x-ray with bilateral patchy infiltrates suggestive of possible right upper lobe pneumonia
Patient has had 2 to 3 weeks of shortness of breath per prior admission.
Intubated 08/22
Extubated 08/25/2024
Code 9, 20 minutes high-quality CPR (Epi x 5, Atropine x 1, bicarb, IVF, intubated)
Bilateral patchy infiltrates, suspected right upper lobe consolidation
Pneumonia versus patchy heart failure
COVID, influenza negative at time of admission
Shortness of breath x 3 weeks
History of falls, syncope
Twice in the last 3 weeks
Anemia, hemoglobin 9.5
Leukocytosis
Acute renal insufficiency, creatinine 2.1
Baseline 1.4-1.6
Acute transaminitis, likely secondary to cardiac arrest
Conditions present prior to admission
History of CKD baseline creatinine 1.4
History of syncope, suspected orthostasis per outpatient records
Atrial fibrillation on Eliquis 2.5 mg twice a day
Coronary disease history of bypass surgery
s/p [facility] 01/17/2021: Successful stenting of mid SVG OM2 graft and distal SVG to OM 2 graft
History of heart failure, elevated filling pressures per catheterization 2020
History of stroke 1997
GERD/peptic ulcer disease
Diabetes
Hypertension/hyperlipidemia
Hypoxia on home oxygen, details unclear
Distant tobacco history
Plan/recommendations
-
Acute hypoxemic and hypercapnic respiratory failure: Pulmonary edema, possibly aspiration event, splinting due to chest pain post CPR.
Extubated 08/23/2024 to intermittent BiPAP
Reintubated demand planning analyst 08/24/2024 due to lethargy/unresponsiveness ABG with acute hypercapnic respiratory failure.
Extubated 08/25/2024.
-
Continue oxygen supplementation-currently on 12 L mid flow and BiPAP
On examination 08/28/2024: Pulse ox 100%.
Continues to complain of sternal pain post CPR. Difficulty taking deep breath
Cough pillow
Decrease FiO2 as able
Encourage incentive spirometry
Continue BiPAP with naps and at bedtime
-
ABG 08/25/2024: 7.44/38/103, will repeat depending on mental status.
Avoid sedatives
Encourage incentive spirometry
Patient not bronchospastic on exam
-
Continue antibiotics for presumed pneumonia, poskmtztk-gshahpdg-cjqxcshdyuv/Doxy/day #6 on antibiotic, complete 7 days.
Chest x-ray 08/27/2024, continues to showed right lower lobe abnormality. Atelectasis/pneumonia. Small pleural effusion. Left lower lobe abnormality atelectasis versus pneumonia. Marked megaly
Persistent leukocytosis but patient afebrile.
Urine culture negative
Respiratory culture with normal respiratory lorraine.
Blood culture negative
Influenza negative
-
Dopplers negative for DVT left upper extremity
Lower extremity Dopplers negative as well
Acute on chronic heart failure with reduced ejection fraction.
Echocardiogram with LV and RV dysfunction, EF 30%. Progressive per report
Pulmonary edema/systolic heart failure
currently heparin drip.Given atrial fibrillation. Follow PTT. Continue for now until hemoglobin stabilizes.
Chest x-ray pulmonary edema pattern.
Continue IV diuretics
Monitor sodium and renal function.
Cardiology following, eventual ischemic evaluation.
-
Acute kidney injury on chronic kidney disease.
Follow potassium.
Follow creatinine particularly on IV diuresis.
-
Differential also includes thromboembolic process-less likely
Continue heparin drip
Eventual transition to oral anticoagulation as previous admission
Mildly increased LFTs: Improving. Possibly ischemic.
Continue analgesia for sternal pain post CPR.
Minimize narcotics.
Anemia noted: So far no evidence for acute bleeding- states that she had had bleeding in the past. states that patient has chronic anemia
Follow H&H, no evidence for bleeding.
Abdominal exam is benign
Heme test when able
Patient has not moved her bowels
Bowel regimen started-hard stools small BM on 08/27/2024.
Benign abdominal exam
Continue to follow closely
Transfuse 1 unit of packed red blood cells 08/28/2024. Consent obtained from
Hyperglycemia: History of diabetes
Continue subcu long-acting insulin lower dose as compared to outpatient dosages.
DVT prophylaxis: Was on Eliquis 2.5 mg twice a day, heparin drip continues for now, follow PTT. Mechanical prophylaxis as well
GI prophylaxis: Protonix
N.p.o. for now-Dobbhoff tube in place. Tube feedings at goal
Speech pathology following.
Reviewed at length with critical care nursing, respiratory care, cardiology, primary service
updated by Dr. Fernando 08/24/2024 and 08/25/2024, 08/27/2024, 08/28/2024.
Critical care statement: A total of 32 minutes of critical care time was provided for this patient today. This includes management of unstable vital signs, evaluation of the patient at bedside, reviewing the patient's pertinent medical records
including ventilator settings, arterial blood gases, radiographs, microbiology, laboratory evaluations and discussion with primary team, critical care nursing, and respiratory therapy.
Subjective Dataa
Subjective Data
Date of Service:
Date of Service: August 28, 2024
Chief Complaint: Endodontics Dentist Follow Up (Acute hypercapnic respiratory failure requiring intubation.)
Subjective:
This morning of BiPAP
Continues to report sternal pain with deep inspiration and coughing.
Denies abdominal pain
Patient was disimpacted yesterday, no evidence of bleeding
Review of Systems
Cardiopulmonary: Dyspnea and Dyspnea on Exertion
GI: Nausea (n) and Vomiting (n)
Objective Data
Data Reviewed
Vital Signs / I&O / Oxygen:
Vital Signs
Temp Pulse Resp BP Pulse Ox
98.4 F 72 25 110/50 100
08/28/24 12:06 08/28/24 10:42 08/28/24 09:30 08/28/24 10:42 08/28/24 12:06
Intake and Output
08/27/24 08/28/24 08/29/24
06:59 06:59 06:59
Intake Total 1613 / 1670 2128 / 2220 642 / 642
Output Total 2260 / 2300 950 / 1000 420 / 420
Balance -647 / -630 1178 / 1220 222 / 222
SaO2 [CPAP/PSV] 95
SaO2 [A/C] 96
SaO2 100
Nasal Cannula flow liters per 6
minute
Physical Exam
General: Comfortable and Other (Right IJ)
HEENT: Normocephalic and Other (ETT in place.)
Cardiovascular: S1-S2, Regular Rhythm, Murmur (n) and Rub (n)
Respiratory: Wheeze (n), Crackles (Few scattered), Rhonchi (n) and Non-Labored Respirations
GI: Soft, Non Distended and Non Tender
Neurology: Awake, Alert and No Motor Deficits
Skin: Cyanosis (n), Jaundice (n) and Rash (n)
Labs/Micro/Reports
Lab Data
08/28/24 03:40
08/28/24 03:40
Laboratory Results
08/28/24
03:40
APTT 87.8 H
Microbiology
08/24/24 15:58 Blood/Venous Blood Culture - Preliminary
No Growth in 72 hours- Final report to follow
08/24/24 15:58 Blood/Venous Blood Culture - Preliminary
No Growth in 72 hours- Final report to follow
[2024-08-28] MEDS: STERILE WATER FOR INJECTION 10 ML IV (14:01)
[2024-08-28] MEDS: CLARITIN 10 MG TUBE (14:01)
[2024-08-28] MEDS: ROCEPHIN 1000 MG IV (14:01)
[2024-08-28] MEDS: FEOSOL 325 MG TUBE (14:01)
--- NOTE | 2024-08-28 14:08 | CM ---
CM following re: discharge planning.
Discussed in Rounds, reviewed pt's chart, met with pt. Pt's family at bedside. Per Rounds meeting, pt continues to be intermittently on BiPAP and requiring 15 L mid flow oxygen, continue supportive care.
PT and OT will evaluate the pt to determine a level of care at discharge.
D/c plan: uncertain at this time and will depend on pt's progress.
CM will follow with discharge plan updates as hospitalization progresses
--- NOTE | 2024-08-28 15:05 | PTCARENOTE ---
Pt OOB to the chair. Repositioned in the chair. SHe is very deconditioned, remains supportive and integral in her recovery and rehab. Pt with severe activity intolerance. Supportive care provided.
[2024-08-28] MEDS: THERAGRAN PO (16:26)
[2024-08-28] MEDS: COLACE LIQUID PO (16:27)
[2024-08-28] MEDS: COREG PO (16:27)
--- NOTE | 2024-08-28 17:23 | W.PN.HOSP.TC ---
Today's Communication/Plan
-
Assessment / Plan
Assessment / Plan
In-hospital cardiac arrest
-Believed to be respiratory driven as hypoxia and not wearing oxygen seems to be a leading cause
--Bradycardia down PEA arrest
--S/p high-quality CPR
--ROSC achieved after multiple doses of epinephrine
Acute hypoxic hypercapnic respiratory failure secondary to pulmonary edema vs splinting from CPR vs pna or multifactorial
-Extubated on 08/25
-BiPAP as needed as needed/at bedtime
-Continue IV Diuretics
-Continue IV Atb
-GI prophylaxis
-Speech eval, NPO until cleared for diet, Conitnue TF via Dobhoff
-- VSE�failed, speech to continue to follow, may require ENT for endoscopy eval
Shock cardiogenic or medication induced with being on propofol vs septic
-Resolved
Acute on chronic HFrEF, 30%, NYHA II-IV
-IV Lasix BID
-GDMT on hold as on pressor support
PAFib now in SR
-Continue amio
-Eliquis held
-Continue Hep gtt, hep protocol, q6h ptt
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
-Monitor UOP
-Avoid Nephrotoxins and hypotension
-IV Diuretics
Acute ischemic hepatitis, improving as expected
-Elevated transaminases likely due to cardiac arrest, shock.
Troponin elevation -presumably acute nonischemic myocardial injury. Patient never had complaints of chest pain according to cardiology.
DM2 with hyperglycemia/hypoglycemia - hemoglobin A1c 9.0%. At home she is on glimepiride 4 mg daily, Lantus 35 units daily, Lantus 20 units at bedtime. Hold glimepiride in the hospital.
Stop Lantus, change corrective insulin to low resistance scale.
Macrocytic anemia
-S/p 1 unit PRBC
PAD -history of right lower extremity stenting.
CAD/CABG -CABG in 1997, four-vessel. With prior stents.
Paroxysmal atrial fibrillation -continue amiodarone, now on IV heparin. Resume Eliquis prior to discharge.
Essential hypertension -currently in shock requiring vasopressors.
Acute anemia -baseline hemoglobin 12 in June, admission hemoglobin 9.7, hemoglobin 8.3 today. Monitor on anticoagulation.
Hyperlipidemia -on atorvastatin.
Hypothyroidism - levothyroxine.
History of GI bleed -history of Dieulafoy lesion status post clipping. History of ruptured duodenal vein in 2014.
Obesity due to excess calories
full code
Anticipated Discharge: > 48 hours
Subjective/Interval History
-
Date of Service: August 28, 2024
Seen and examined. Off BiPAP. Still on tube feeds. Plan for speech/video swallow later today. at bedside
Objective Data
-
Vital Signs:
Vital Signs
Temp Pulse Resp BP Pulse Ox
98.3 F 73 16 135/59 96
08/28/24 17:09 08/28/24 17:09 08/28/24 17:09 08/28/24 17:09 08/28/24 17:09
I&O
08/27/24 08/28/24 08/29/24
06:59 06:59 06:59
Intake Total 1613 / 1670 2128 / 2220 1477 / 1477
Output Total 2260 / 2300 950 / 1000 675 / 675
Balance -647 / -630 1178 / 1220 802 / 802
Physical Exam
-
General: Comfortable and Appears Chronically Ill
Respiratory: Crackles
Cardiac: Regular Rhythm and S1/S2
GI: Soft, Nontender and Nondistended
Skin: Warm
Neuro: Awake and Alert
[2024-08-28] MEDS: NOVOLOG FLEXPEN-HIGH RESISTANCE 7 UNITS SC ×2 (17:31→23:59)
[2024-08-28 17:39] LABS: Glucose - Point of Care 285 mg/dl (70-99)
[2024-08-28] MEDS: COREG 3.125 MG TUBE (20:04)
[2024-08-28] MEDS: HEPARIN 25000 UNITS/250 ML IV (20:05)
[2024-08-28] MEDS: COLACE LIQUID 100 MG TUBE (20:05)
[2024-08-28] MEDS: LIPITOR 80 MG TUBE (21:33)
--- NOTE | 2024-08-28 21:40 | PTCARENOTE ---
assumed care of pt. approx 1900.
Hemodynamically stable, on HS bipap settings.
See assessment flowsheet for further details.
No studies or plans scheduled for this pt. at this time.
[2024-08-28] MEDS: NOVOLOG FLEXPEN 4 UNITS SC (23:59)
[2024-08-29] VITALS (27 sets, daily range): BP systolic 129–169; BP diastolic 51–79; PULSE 2–85; BMI 32.3
[2024-08-29 00:05] LABS: Glucose - Point of Care 272 mg/dl (70-99)
--- NOTE | 2024-08-29 02:05 | PTCARENOTE ---
Received pt at 0130, pt alert and nods appropriately, SR on the monitor, hep gtt infusing per orders, BIPAP on and functioning, 97%, nare dobhoff at 65 cm, TF infusing at goal rate with 50ml/hr flush, dubon in place, pt repositioned and call grant in
reach
[2024-08-29 03:53] LABS: Hematocrit 26.2 % (37.0-47.0); Hemoglobin 8.4 g/dL (12.0-16.0); Mean Corp Hgb Conc. 32.1 g/dL (33.0-37.0); Mean Corpuscular Hgb 32.7 pg (27.0-31.0); Mean Corpuscular Volume 101.9 fL (81.0-99.0); Mean Platelet Volume 10.5 fL (7.4-10.4); Platelet Count 220 10^3/uL (130-400); Red Blood Cell Count 2.57 10^6/uL (4.20-5.40); White Blood Cell Count 12.6 10^3/uL (4.8-10.8)
[2024-08-29 04:06] LABS: APTT 77.7 Sec (23.4-35.0)
[2024-08-29 04:53] LABS: Blood Urea Nitrogen 86 mg/dl (7-17); Calcium 8.8 mg/dl (8.4-10.2); Carbon Dioxide 32 mmol/L (22-30); Chloride 104 mmol/L (98-107); Estimated Creatinine Clearance 23 ml/min; Glucose 213 mg/dl (70-99); Potassium 3.6 mmol/L (3.5-5.1); Sodium 145 mmol/L (135-145); eGFR 26.04
[2024-08-29] MEDS: SYNTHROID 75 MCG TUBE (06:14)
[2024-08-29] MEDS: NOVOLOG FLEXPEN 4 UNITS SC ×4 (06:33→23:21)
[2024-08-29] MEDS: NOVOLOG FLEXPEN-HIGH RESISTANCE 4 UNITS SC ×3 (06:34→23:20)
[2024-08-29 06:44] LABS: Glucose - Point of Care 243 mg/dl (70-99)
--- NOTE | 2024-08-29 09:00 | PTCARENOTE ---
Received pt @ change of shift. Pt. drowsy, awakens to verbal stim; c/o moderate sternal pain @ CPR site; denies pain medication. SR w 1st degree AVB/parox afib on monitor. SpO2 97% on BiPAP; confirmed w Dr. Milton no ABG needed prior to
switching to O2 in AM. RT switched pt. over to 6LNC @ approx 0900. Auscultated coarse/dim breath sounds. Occ weak/moist/budder cough. L nare dobhoff in place w Jevity 1.5 @ 45mL/hr and 50mL/hr H20 flush; tolerating feeds. Thermistor dubon in place
draining yellow/kermit urine. R IJ TL w heparin gtt infusing- see flow sheet. Repositioned per orders. @ bedside. Call grant in reach.
[2024-08-29] MEDS: PACERONE 100 MG TUBE (09:02)
[2024-08-29] MEDS: COLACE LIQUID 100 MG TUBE ×2 (09:02→20:41)
[2024-08-29] MEDS: COREG 3.125 MG TUBE ×2 (09:02→20:41)
[2024-08-29] MEDS: LASIX 40 MG IV ×2 (09:02→16:34)
[2024-08-29] MEDS: LANTUS 0.2 UNITS SC (09:02)
[2024-08-29] MEDS: THERAGRAN 1 TABLET TUBE (09:03)
[2024-08-29] MEDS: LOW STRENGTH ASPIRIN 81 MG TUBE (09:03)
[2024-08-29] MEDS: VITAMIN C 500 MG TUBE (09:03)
[2024-08-29] MEDS: NOVOLOG FLEXPEN-HIGH RESISTANCE 7 UNITS SC (11:26)
[2024-08-29 11:38] LABS: Glucose - Point of Care 278 mg/dl (70-99)
--- NOTE | 2024-08-29 11:52 | W.PN.INTV ---
Today's Communication / Plan
Recommendations
Continue IV diuresis
Completed antibiotics 08/29/2024
Wean down FiO2-oxygen has been decreased from 12 to 6 L
Continue BiPAP
Avoid sedatives
Dobbhoff tube-aspiration precautions
Consider transition to oral anticoagulants if hemoglobin is stable in the next 24 hours.
Assessment
-
83-year-old female with history of coronary disease distant bypass surgery 1997, atrial fibrillation on amiodarone and Eliquis at 2.5 mg twice a day who presents with 2 to 3-week history of shortness of breath. Cording to Pat, patient
refused evaluation but was seen as a routine visit by primary 08/21 was instructed to go to the ED. Found to be hypoxic, thought to be heart failure with elevated troponin. Also found to be anemic. On 08/22 developed cardiac arrest followed by 20
minutes of high-quality CPR with ROSC, intubated and transferred to ICU 08/22
Acute hypoxic respiratory failure
Triggering event: Hypoxic event with cardiac arrest with ROSC following high-quality CPR
Chest x-ray with bilateral patchy infiltrates suggestive of possible right upper lobe pneumonia
Patient has had 2 to 3 weeks of shortness of breath per prior admission.
Intubated 08/22
Extubated 08/25/2024
Code 9, 20 minutes high-quality CPR (Epi x 5, Atropine x 1, bicarb, IVF, intubated)
Bilateral patchy infiltrates, suspected right upper lobe consolidation
Pneumonia versus patchy heart failure
COVID, influenza negative at time of admission
Shortness of breath x 3 weeks
History of falls, syncope
Twice in the last 3 weeks
Anemia, hemoglobin 9.5
Leukocytosis
Acute renal insufficiency, creatinine 2.1
Baseline 1.4-1.6
Acute transaminitis, likely secondary to cardiac arrest
Conditions present prior to admission
History of CKD baseline creatinine 1.4
History of syncope, suspected orthostasis per outpatient records
Atrial fibrillation on Eliquis 2.5 mg twice a day
Coronary disease history of bypass surgery
s/p [facility] 01/17/2021: Successful stenting of mid SVG OM2 graft and distal SVG to OM 2 graft
History of heart failure, elevated filling pressures per catheterization 2020
History of stroke 1997
GERD/peptic ulcer disease
Diabetes
Hypertension/hyperlipidemia
Hypoxia on home oxygen, details unclear
Distant tobacco history
Plan/recommendations
-
Acute hypoxemic and hypercapnic respiratory failure: Pulmonary edema, possibly aspiration event, splinting due to chest pain post CPR.
Extubated 08/23/2024 to intermittent BiPAP
Reintubated cotton factor 08/24/2024 due to lethargy/unresponsiveness ABG with acute hypercapnic respiratory failure.
Extubated 08/25/2024.
-
Continue oxygen supplementation-oxygenation improved from 12 L down to 6 L pulse ox 90% sitting out of bed.
Continue BiPAP as needed and at bedtime.
Pulse ox improved with deep inspiration and I-S
Continues to complain of sternal pain post CPR. Difficulty taking deep breath
Cough pillow
Decrease FiO2 as able
Encourage incentive spirometry
Continue BiPAP with naps and at bedtime
-
ABG 08/25/2024: 7.44/38/103, will repeat depending on mental status.
Avoid sedatives-currently alert and following commands. Strong cough effort 08/29/2024
Encourage incentive spirometry
Patient not bronchospastic on exam
-
Continue antibiotics for presumed pneumonia, uzwnqoene-gywqjpow-cjhjpfxsvgr/Doxy/day #7 08/29/2024 on antibiotic, complete 7 days.
Chest x-ray 08/27/2024, continues to showed right lower lobe abnormality. Atelectasis/pneumonia. Small pleural effusion. Left lower lobe abnormality atelectasis versus pneumonia. Marked megaly
Persistent leukocytosis but patient afebrile.
Urine culture negative
Respiratory culture with normal respiratory lorraine.
Blood culture negative
Influenza negative
-
Dopplers negative for DVT left upper extremity
Lower extremity Dopplers negative as well
Acute on chronic heart failure with reduced ejection fraction.
Echocardiogram with LV and RV dysfunction, EF 30%. Progressive per report
Pulmonary edema/systolic heart failure
currently heparin drip.Given atrial fibrillation. Follow PTT. Continue for now until hemoglobin stabilizes.
Chest x-ray pulmonary edema pattern.
Continue IV diuretics
Monitor sodium and renal function.
Cardiology following, eventual ischemic evaluation.
-
Acute kidney injury on chronic kidney disease.
Follow potassium.
Follow creatinine particularly on IV diuresis.
-
Differential also includes thromboembolic process-less likely
Continue heparin drip
Eventual transition to oral anticoagulation as previous admission
Mildly increased LFTs: Improving. Possibly ischemic.
Continue analgesia for sternal pain post CPR.
Minimize narcotics.
Anemia noted: So far no evidence for acute bleeding- states that she had had bleeding in the past. states that patient has chronic anemia
Follow H&H, no evidence for bleeding.
Abdominal exam is benign
Heme test when able
Patient has not moved her bowels
Bowel regimen started-hard stools small BM on 08/27/2024.
Benign abdominal exam
Continue to follow closely
Transfuse 1 unit of packed red blood cells 08/28/2024. Consent obtained from -hemoglobin increased to 8.4.
Continue to monitor for bleeding
Hyperglycemia: History of diabetes
Continue subcu long-acting insulin lower dose as compared to outpatient dosages.
DVT prophylaxis: Was on Eliquis 2.5 mg twice a day, if hemoglobin tomorrow is stable consider transition to oral anticoagulant
GI prophylaxis: Protonix
N.p.o. for now-Dobbhoff tube in place. Tube feedings at goal
Speech pathology following-remains n.p.o. failed speech evaluation.
Increase mobility as able
Reviewed at length with critical care nursing, respiratory care, cardiology, primary service
updated by Dr. Fernando 08/24/2024 and 08/25/2024, 08/27/2024, 08/28/2024, 08/29/2024.
Pulmonary will continue to follow.
Subjective Dataa
Subjective Data
Date of Service:
Date of Service: August 29, 2024
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
Subjective:
Sitting out of the chair
Feels tired
On 5 L of oxygen
Intermittent cough
Objective Data
Data Reviewed
Vital Signs / I&O / Oxygen:
Vital Signs
Temp Pulse Resp BP Pulse Ox
98.2 F 75 14 150/58 95
08/29/24 07:25 08/29/24 09:02 08/29/24 06:00 08/29/24 09:02 08/29/24 08:47
Intake and Output
08/28/24 08/29/24 08/30/24
06:59 06:59 06:59
Intake Total 2128 / 2220 2286 / 2286
Output Total 950 / 1000 1435 / 1435
Balance 1178 / 1220 851 / 851
SaO2 [CPAP/PSV] 95
SaO2 [A/C] 96
SaO2 95
Nasal Cannula flow liters per 6
minute
Physical Exam
General: Comfortable and Other (Right IJ)
HEENT: Normocephalic and Other (ETT in place.)
Cardiovascular: S1-S2, Regular Rhythm, Murmur (n) and Rub (n)
Respiratory: Wheeze (n), Crackles (Few scattered), Rhonchi (Coarse breath sound) and Non-Labored Respirations
GI: Soft, Non Distended and Non Tender
Neurology: Awake, Alert and No Motor Deficits
Skin: Cyanosis (n), Jaundice (n) and Rash (n)
Labs/Micro/Reports
Lab Data
08/29/24 03:24
08/29/24 03:24
Laboratory Results
08/29/24
03:24
APTT 77.7 H
Microbiology
08/24/24 15:58 Blood/Venous Blood Culture - Preliminary
No Growth in 4 days- Final report to follow
08/24/24 15:58 Blood/Venous Blood Culture - Preliminary
No Growth in 4 days- Final report to follow
--- NOTE | 2024-08-29 12:00 | PTCARENOTE ---
Pt. assisted x 2 to stand/pivot OOB to chair @ approx 1000. Generalized weakness/gait unsteady. Tolerating chair position. SpO2 dropped into mid 80's while working on coughing/deep breath exercises; O2 increased to 8LMF; SpO2 recovered into 90's
and pt. reported improved work of breathing. remains @ bedside. Call grant in reach.
[2024-08-29] MEDS: FEOSOL 325 MG TUBE (12:03)
--- NOTE | 2024-08-29 14:50 | W.PN.CD ---
Today's Communication / Plan
-
-Continue low-dose of Coreg 3.125 mg twice daily; further GDMT limited by blood pressure and renal dysfunction.
-Continue Lasix 40 mg IV BID.
-Hemoglobin improved today from 7.2-8.4.
-Continue heparin drip; consider transitioning to Eliquis tomorrow if hemoglobin stays stable.
Impression / Plan
-
Primary Cards: Yamile
Cardiac arrest
- presumed hypoxic
- ECG shows unchanged lateral ST changes
- Echocardiogram with EF of 30%.
- Abx for sepsis
Zkska-df-xyheeyp HFrEF ICMO w/ 30%(global HK):
-Continue low-dose of Coreg 3.125 mg twice daily; further GDMT limited by blood pressure and renal dysfunction.
-Continue Lasix 40 mg IV BID.
CAD with CABG and stenting:
-Etiology of abnormal troponin is unclear; most likely secondary to CHF and renal insufficiency.
-Will need ischemic at some point given reduced EF, if appropriate candidate.
PAF with worsening Anemia 07/03/24 hgb 12.4 down to 7.2
-Hemoglobin improved today from 7.2-8.4.
-Continue heparin drip; consider transitioning to Eliquis tomorrow if hemoglobin stays stable.
NARCISO:
-Cr ~2.0 likely 2/2 worsening sepsis and hypotension
-Management as per primary team.
SQ ICD is in place
Data:
Cath 01/17/21: Severe [place] triple-vessel CAD as described with patent PAIGE-LAD and patent but severely diseased SVG-OM2. In addition to the severe disease in the vein graft, there is new significant mid LAD disease distal to the XAVIER graft
touchdown site. Successful stenting of 90% mid body SVG-OM2 graft lesion using 4.0 x 23 Xience Estefania GEO. Successful stenting of 60% distal SVG-OM2 graft lesion using 4.0 x 12 Xience Estefania GEO.
Remains critically ill, prognosis guarded
CCT = 34 minutes.
Physical Exam
Vital Signs/Labs
Vital Signs
Temp Pulse Resp BP Pulse Ox
98.6 F 75 14 150/58 94
08/29/24 11:05 08/29/24 09:02 08/29/24 06:00 08/29/24 09:02 08/29/24 14:00
08/28/24 08/29/24 08/30/24
06:59 06:59 06:59
Actual Weight 81.2 kg 82.6 kg
08/29/24 03:24
08/29/24 03:24
PT 17.7 Sec (11.4-14.6) H 08/22/24 12:44
INR 1.40 08/22/24 12:44
APTT 77.7 Sec (23.4-35.0) H 08/29/24 03:24
Magnesium 2.1 mg/dl (1.6-2.3) 08/26/24 03:26
Triglycerides 259 mg/dl (10-149) H 08/27/24 03:17
08/21/24
10:19
Qgf-C-Jrlyczjgloc Pept [id number]
Physical Exam
Constitutional: No acute distress and Comfortable
EENT: Anicteric
Cardiovascular: Rhythm & rate is regular, Pedal edema is absent, Systolic murmur present (08/31) and S1S2 is normal
Respiratory: Respiratory effort normal and Rhonchi Present (Bibasilar)
GI: Soft
Neuro/Psych: AO x 3
Other: Skin (Warm, dry, intact)
Data Reviewed
-
Date of Service: August 29, 2024
EKG: Report Reviewed by me (Telemetry: Sinus rhythm)
X-Ray/CT/US/MRI/NUC/PET: Discussed with Family ( at bedside)
Critical Care Time (in minutes): 34
--- NOTE | 2024-08-29 15:12 | W.PN.HOSP.TC ---
Today's Communication/Plan
-
Assessment / Plan
Assessment / Plan
General: Comfortable and Appears Chronically Ill
Respiratory: Crackles
Cardiac: Regular Rhythm and S1/S2
GI: Soft, Nontender and Nondistended
Skin: Warm
Neuro: Awake and Alert
In-hospital cardiac arrest
-Believed to be respiratory driven as hypoxia and not wearing oxygen seems to be a leading cause
--Bradycardia down PEA arrest
--S/p high-quality CPR
--ROSC achieved after multiple doses of epinephrine
Acute hypoxic hypercapnic respiratory failure secondary to pulmonary edema vs splinting from CPR vs pna or multifactorial
-Extubated on 08/25
-BiPAP as needed as needed/at bedtime
-Continue IV Diuretics
-Continue IV Atb
-GI prophylaxis
-Speech eval, NPO until cleared for diet, Conitnue TF via Dobhoff
-- VSE�failed, speech to continue to follow, may require ENT for endoscopy eval
Shock cardiogenic or medication induced with being on propofol vs septic
-Resolved
Acute on chronic HFrEF, 30%, NYHA II-IV
-IV Lasix BID
-GDMT on hold as on pressor support
PAFib now in SR
-Continue amio
-Eliquis held
-Continue Hep gtt, hep protocol, q6h ptt
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
-Monitor UOP
-Avoid Nephrotoxins and hypotension
-IV Diuretics
Acute ischemic hepatitis, improving as expected
-Elevated transaminases likely due to cardiac arrest, shock.
Troponin elevation -presumably acute nonischemic myocardial injury. Patient never had complaints of chest pain according to cardiology.
DM2 with hyperglycemia/hypoglycemia - hemoglobin A1c 9.0%. At home she is on glimepiride 4 mg daily, Lantus 35 units daily, Lantus 20 units at bedtime. Hold glimepiride in the hospital.
Stop Lantus, change corrective insulin to low resistance scale.
Macrocytic anemia
-S/p 1 unit PRBC
PAD -history of right lower extremity stenting.
CAD/CABG -CABG in 1997, four-vessel. With prior stents.
Paroxysmal atrial fibrillation -continue amiodarone, now on IV heparin. Resume Eliquis prior to discharge.
Essential hypertension -currently in shock requiring vasopressors.
Acute anemia -baseline hemoglobin 12 in June, admission hemoglobin 9.7, hemoglobin 8.3 today. Monitor on anticoagulation.
Hyperlipidemia -on atorvastatin.
Hypothyroidism - levothyroxine.
History of GI bleed -history of Dieulafoy lesion status post clipping. History of ruptured duodenal vein in 2014.
Obesity due to excess calories
full code
Anticipated Discharge: > 48 hours
Subjective/Interval History
-
Date of Service: August 29, 2024
Objective Data
-
Labs:
Laboratory Results
08/29/24
03:24
WBC 12.6 H
Hgb 8.4 L
Hct 26.2 L
Plt Count 220
APTT 77.7 H
Sodium 145
Potassium 3.6
Chloride 104
Carbon Dioxide 32 H
BUN 86 H
Creatinine 1.9 H
Glucose 213 H
Calcium 8.8
Vital Signs:
Vital Signs
Temp Pulse Resp BP Pulse Ox
98.6 F 75 14 150/58 94
08/29/24 11:05 08/29/24 09:02 08/29/24 06:00 08/29/24 09:02 08/29/24 14:00
I&O
08/28/24 08/29/24 08/30/24
06:59 06:59 06:59
Intake Total 2128 / 2220 2286 / 2393 749 / 749
Output Total 950 / 1000 1435 / 1435 150 / 150
Balance 1178 / 1220 851 / 958 599 / 599
[2024-08-29] MEDS: HEPARIN 25000 UNITS/250 ML IV (16:32)
--- NOTE | 2024-08-29 17:07 | PTCARENOTE ---
Pt. remained OOB to chair approx 6H+. Assisted pt. to stand pivot x2 back to bed @ this time. Once back to bed, dubon catheter d/c'd per protocol and bladder scan/straight cath protocols initiated. Assisted w repositioning and call grant in reach.
[2024-08-29 17:40] LABS: Glucose - Point of Care 204 mg/dl (70-99)
[2024-08-29] MEDS: LANTUS 0.15 UNITS SC (23:19)
[2024-08-29] MEDS: LIPITOR 80 MG TUBE (23:20)
[2024-08-29 23:31] LABS: Glucose - Point of Care 249 mg/dl (70-99)
[2024-08-30] VITALS (29 sets, daily range): BP systolic 115–157; BP diastolic 49–76; PULSE 2–83; O2SAT 97; BMI 32.4
[2024-08-30 03:14] LABS: Hematocrit 26.6 % (37.0-47.0); Hemoglobin 8.4 g/dL (12.0-16.0); Mean Corp Hgb Conc. 31.6 g/dL (33.0-37.0); Mean Corpuscular Hgb 32.2 pg (27.0-31.0); Mean Corpuscular Volume 101.9 fL (81.0-99.0); Mean Platelet Volume 10.2 fL (7.4-10.4); Platelet Count 204 10^3/uL (130-400); Red Blood Cell Count 2.61 10^6/uL (4.20-5.40); Red Cell Dist. Width 17.9 % (11.5-14.5); White Blood Cell Count 12.9 10^3/uL (4.8-10.8)
[2024-08-30 03:27] LABS: APTT 80.3 Sec (23.4-35.0)
[2024-08-30 04:11] LABS: Blood Urea Nitrogen 83 mg/dl (7-17); Calcium 8.7 mg/dl (8.4-10.2); Carbon Dioxide 33 mmol/L (22-30); Chloride 102 mmol/L (98-107); Estimated Creatinine Clearance 25 ml/min; Glucose 207 mg/dl (70-99); Potassium 3.5 mmol/L (3.5-5.1); Sodium 142 mmol/L (135-145); Triglycerides 206 mg/dl (10-149); eGFR 27.78
[2024-08-30] MEDS: SYNTHROID 75 MCG TUBE (06:12)
[2024-08-30] MEDS: NOVOLOG FLEXPEN-HIGH RESISTANCE 4 UNITS SC (06:12)
[2024-08-30] MEDS: NOVOLOG FLEXPEN 4 UNITS SC ×4 (06:13→23:12)
[2024-08-30 06:21] LABS: Glucose - Point of Care 226 mg/dl (70-99)
--- NOTE | 2024-08-30 08:30 | PTCARENOTE ---
Received pt @ change of shift. Pt. drowsy, awakens to verbal stim, oriented x3. SR w 1st degree AVB/parox afib on monitor. SpO2 97% on BiPAP; RT switched pt. over to 15LNC @ approx 0830. Auscultated coarse/dim breath sounds. 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
cough. L nare dobhoff in place w Jevity 1.5 @ 45mL/hr and 50mL/hr H20 flush; tolerating feeds. Constipated, bowel reg- see MAR. Inc bladder, purewick in place draining kermit urine. R IJ TL w heparin gtt infusing- see flow sheet. Repositioned per
orders. @ bedside, updated. Call grant in reach.
[2024-08-30] MEDS: VITAMIN C 500 MG TUBE (08:57)
[2024-08-30] MEDS: THERAGRAN 1 TABLET TUBE (08:57)
[2024-08-30] MEDS: PACERONE 100 MG TUBE (08:58)
[2024-08-30] MEDS: COLACE LIQUID 100 MG TUBE ×2 (08:58→20:08)
[2024-08-30] MEDS: LOW STRENGTH ASPIRIN 81 MG TUBE (08:58)
[2024-08-30] MEDS: COREG 3.125 MG TUBE ×2 (08:58→20:08)
[2024-08-30] MEDS: LASIX 40 MG IV ×2 (08:58→15:44)
[2024-08-30] MEDS: LANTUS 0.2 UNITS SC (08:58)
--- NOTE | 2024-08-30 10:07 | W.PN.INTV ---
Today's Communication / Plan
Recommendations
Continue intermittent BiPAP at at bedtime
Wean down FiO2
Continue IV steroids
Completed antibiotics 7 days-monitor
Incentive spirometry
Nebulizers as needed
Increase activity as able
Intensify bowel regimen
Nutritional support
Will follow
Assessment
-
83-year-old female with history of coronary disease distant bypass surgery 1997, atrial fibrillation on amiodarone and Eliquis at 2.5 mg twice a day who presents with 2 to 3-week history of shortness of breath. Cording to Pat, patient
refused evaluation but was seen as a routine visit by primary 08/21 was instructed to go to the ED. Found to be hypoxic, thought to be heart failure with elevated troponin. Also found to be anemic. On 08/22 developed cardiac arrest followed by 20
minutes of high-quality CPR with ROSC, intubated and transferred to ICU 08/22
Acute hypoxic respiratory failure
Triggering event: Hypoxic event with cardiac arrest with ROSC following high-quality CPR
Chest x-ray with bilateral patchy infiltrates suggestive of possible right upper lobe pneumonia
Patient has had 2 to 3 weeks of shortness of breath per prior admission.
Intubated 08/22
Extubated 08/25/2024
Code 9, 20 minutes high-quality CPR (Epi x 5, Atropine x 1, bicarb, IVF, intubated)
Bilateral patchy infiltrates, suspected right upper lobe consolidation
Pneumonia versus patchy heart failure
COVID, influenza negative at time of admission
Shortness of breath x 3 weeks
History of falls, syncope
Twice in the last 3 weeks
Anemia, hemoglobin 9.5
Leukocytosis
Acute renal insufficiency, creatinine 2.1
Baseline 1.4-1.6
Acute transaminitis, likely secondary to cardiac arrest
Conditions present prior to admission
History of CKD baseline creatinine 1.4
History of syncope, suspected orthostasis per outpatient records
Atrial fibrillation on Eliquis 2.5 mg twice a day
Coronary disease history of bypass surgery
s/p [facility] 01/17/2021: Successful stenting of mid SVG OM2 graft and distal SVG to OM 2 graft
History of heart failure, elevated filling pressures per catheterization 2020
History of stroke 1997
GERD/peptic ulcer disease
Diabetes
Hypertension/hyperlipidemia
Hypoxia on home oxygen, details unclear
Distant tobacco history
Plan/recommendations
-
Acute hypoxemic and hypercapnic respiratory failure: Pulmonary edema, possibly aspiration event, splinting due to chest pain post CPR.
Extubated 08/23/2024 to intermittent BiPAP
Reintubated blanket inspector 08/24/2024 due to lethargy/unresponsiveness ABG with acute hypercapnic respiratory failure.
Extubated 08/25/2024.
-
Oxygenation improved-FiO2 10 to 12 L L since 08/29/2024. Usually gets worse in the blanket inspector before waking up suggesting atelectasis. Improves in the afternoon
Continue BiPAP as needed and at bedtime.
Pulse ox improved with deep inspiration and I-S-likely due to subsegmental atelectasis.
Continues to complain of sternal pain post CPR. Difficulty taking deep breath
Cough pillow
Decrease FiO2 as able maintain pulse ox above 90%
Encourage incentive spirometry
Continue BiPAP with naps and at bedtime
Rhonchi on exam-will add DuoNebs 3 times a day for secretion clearance
Continue Acapella device
Out of bed as able, patient is very debilitated.
-
Abdominal distention does not help with respiratory mechanics
Intensify bowel regimen-will add MiraLAX
She was disimpacted earlier this admission and severe constipation
Continue stool softeners
Aspiration precautions
Monitor feeding residual
Obtain abdominal plain film today 08/30/2024
-
ABG 08/25/2024: 7.44/38/103, will repeat depending on mental status.
Avoid sedatives-currently alert and following commands. Strong cough effort 08/29/2024
Encourage incentive spirometry
Patient not bronchospastic on exam
Repeat ABG 08/31/2024 in blanket inspector off BiPAP.
-
Continue antibiotics for presumed pneumonia, zhmqepdrp-cneezndw-gdjawjxfcsg/Doxy/day #7 08/29/2024 on antibiotic, completed 7 days.
Chest x-ray 08/27/2024, continues to showed right lower lobe abnormality. Atelectasis/pneumonia. Small pleural effusion. Left lower lobe abnormality atelectasis versus pneumonia. Cardiomegaly
Persistent leukocytosis but patient afebrile.
Hemodynamically stable
Urine culture negative
Respiratory culture with normal respiratory lorraine.
Blood culture negative
Influenza negative
-
Dopplers negative for DVT left upper extremity
Lower extremity Dopplers negative as well
Acute on chronic heart failure with reduced ejection fraction.
Echocardiogram with LV and RV dysfunction, EF 30%. Progressive per report
Pulmonary edema/systolic heart failure
currently heparin drip.Given atrial fibrillation. Follow PTT. Continue for now until hemoglobin stabilizes and Doppler to be discontinued .
Chest x-ray pulmonary edema pattern. Follow chest x-ray 08/31/2024
Continue IV diuretics per cardiology
Monitor sodium and renal function. Creatinine stable 1.8
Cardiology following, eventual ischemic evaluation.
-
Acute kidney injury on chronic kidney disease.
Follow potassium.
Follow creatinine particularly on IV diuresis.
-
Differential also includes thromboembolic process-less likely
Continue heparin drip
Eventual transition to oral anticoagulation as previous admission
Mildly increased LFTs: Improving. Possibly ischemic.
Improving, no need to trend on a daily basis
Continue analgesia for sternal pain post CPR.
Minimize narcotics.
Cough pillow
Anemia noted: So far no evidence for acute bleeding- states that she had had bleeding in the past. states that patient has chronic anemia
Follow H&H, no evidence for bleeding.
Abdominal exam is benign
Heme test when able
Patient has not moved her bowels
Bowel regimen started-hard stools small BM on 08/27/2024.
Benign abdominal exam
Continue to follow closely
Transfused 1 unit of packed red blood cells 08/28/2024. Consent obtained from , he reports that she has history of chronic anemia.
Hemoglobin is stable at 8.4.
Continue to monitor for bleeding
Hyperglycemia: History of diabetes
Continue subcu long-acting insulin lower dose as compared to outpatient dosages.
DVT prophylaxis: Was on Eliquis 2.5 mg twice a day, heparin drip for now discussed with cardiology until NG tube is discontinued.
GI prophylaxis: Protonix
N.p.o. for now-Dobbhoff tube in place. Tube feedings at goal
Speech pathology following-remains n.p.o. failed speech evaluation.
Increase mobility as able
Out of bed to chair
Pulmonary will continue to follow
updated by Dr. Fernando 08/24/2024 and 08/25/2024, 08/27/2024, 08/28/2024, 08/29/2024, 08/30/2024.
Pulmonary will continue to follow.
Subjective Dataa
Subjective Data
Date of Service:
Date of Service: August 30, 2024
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
Subjective:
Offers no new complaints
Continues to have sternal pain with coughing and deep inspiration
Denies abdominal pain
Denies nausea or vomiting
Review of Systems
Cardiopulmonary: Dyspnea, Dyspnea on Exertion, Cough, Sputum Production (n) and Wheezing (n)
GI: Abdominal Pain (n), Nausea (n) and Vomiting (n)
Objective Data
Data Reviewed
Vital Signs / I&O / Oxygen:
Vital Signs
Temp Pulse Resp BP Pulse Ox
98 F 65 19 130/50 93
08/30/24 07:24 08/30/24 08:58 08/30/24 06:00 08/30/24 08:58 08/30/24 09:47
Intake and Output
08/29/24 08/30/24 08/31/24
06:59 06:59 06:59
Intake Total 2286 / 2393 2032 / 2033 107 / 107
Output Total 1435 / 1510 1425 / 1425
Balance 851 / 883 608 / 608 107 / 107
SaO2 [CPAP/PSV] 95
SaO2 [A/C] 96
SaO2 93
Nasal Cannula flow liters per 6
minute
Physical Exam
General: Comfortable and Other (Right IJ)
HEENT: Normocephalic
Cardiovascular: S1-S2, Regular Rhythm, Murmur (n) and Rub (n)
Respiratory: Wheeze (n), Crackles (Few scattered both bases), Rhonchi (None) and Non-Labored Respirations ( at rest)
GI: Soft, Non Distended, Non Tender and Other (Dobbhoff tube in place)
Neurology: Awake, Alert, Oriented and No Motor Deficits
Skin: Cyanosis (n), Jaundice (n) and Rash (n)
Labs/Micro/Reports
Lab Data
08/30/24 02:56
08/30/24 02:56
Laboratory Results
08/30/24
02:56
APTT 80.3 H
Microbiology
08/24/24 15:58 Blood/Venous Blood Culture - Final
No Growth - Final Report
08/24/24 15:58 Blood/Venous Blood Culture - Final
No Growth - Final Report
--- NOTE | 2024-08-30 10:18 | W.PN.CD ---
Today's Communication / Plan
-
-Continue Lasix 40 mg IV BID.
-Hemoglobin stable today at 8.4.
-Continue heparin drip; transition to Eliquis when NG tube is removed.
Impression / Plan
-
Primary Cards: Yamile
Cardiac arrest
- presumed hypoxic
- ECG shows unchanged lateral ST changes
- Echocardiogram with EF of 30%.
- Abx for sepsis
-Continue supportive care.
Bjuow-lj-cgkeqda HFrEF ICMO w/ 30%(global HK):
-Continue low-dose of Coreg 3.125 mg twice daily; further GDMT limited by blood pressure and renal dysfunction.
-Continue Lasix 40 mg IV BID.
CAD with CABG and stenting:
-Etiology of abnormal troponin is unclear; most likely secondary to CHF and renal insufficiency.
-Will need ischemic at some point given reduced EF, if appropriate candidate.
PAF with worsening Anemia 07/03/24 hgb 12.4 down to 7.2
-Hemoglobin stable today at 8.4.
-Continue heparin drip; transition to Eliquis when NG tube is removed.
NARCISO:
-Cr ~2.0 likely 2/2 worsening sepsis and hypotension
-Management as per primary team.
SQ ICD is in place
Data:
Cath 01/17/21: Severe [place] triple-vessel CAD as described with patent PAIGE-LAD and patent but severely diseased SVG-OM2. In addition to the severe disease in the vein graft, there is new significant mid LAD disease distal to the XAVIER graft
touchdown site. Successful stenting of 90% mid body SVG-OM2 graft lesion using 4.0 x 23 Xience Estefania GEO. Successful stenting of 60% distal SVG-OM2 graft lesion using 4.0 x 12 Xience Estefania GEO.
Remains critically ill, prognosis guarded
CCT = 36 minutes.
Physical Exam
Vital Signs/Labs
Vital Signs
Temp Pulse Resp BP Pulse Ox
98 F 65 19 130/50 93
08/30/24 07:24 08/30/24 08:58 08/30/24 06:00 08/30/24 08:58 08/30/24 09:47
08/29/24 08/30/24 08/31/24
06:59 06:59 06:59
Actual Weight 82.6 kg 83 kg
08/30/24 02:56
08/30/24 02:56
PT 17.7 Sec (11.4-14.6) H 08/22/24 12:44
INR 1.40 08/22/24 12:44
APTT 80.3 Sec (23.4-35.0) H 08/30/24 02:56
Magnesium 2.1 mg/dl (1.6-2.3) 08/26/24 03:26
Triglycerides 206 mg/dl (10-149) H 08/30/24 02:56
08/21/24
10:19
Dif-F-Cdzicgrpjgu Pept [id number]
Physical Exam
Constitutional: No acute distress and Comfortable
EENT: Anicteric
Cardiovascular: Rhythm & rate is regular, Pedal edema is absent, Systolic murmur present (08/31) and S1S2 is normal
Respiratory: Other (Coarse bilateral breath sounds)
GI: Soft
Neuro/Psych: Other (Somnolent)
Other: Skin (Warm, dry)
Data Reviewed
-
Date of Service: August 30, 2024
EKG: Report Reviewed by me (Telemetry: Sinus rhythm)
Medical Tests (PFT, Pathology etc): Report Reviewed by me, Discussed with Physician (Resident Services Supervisor), Discussed with Nurse and Discussed with Family ( at bedside)
Labs: Labs Reviewed by me
Critical Care Time (in minutes): 38
[2024-08-30 12:47] LABS: Glucose - Point of Care 297 mg/dl (70-99)
[2024-08-30] MEDS: MIRALAX 17 GRAMS TUBE (12:52)
[2024-08-30] MEDS: FEOSOL 325 MG TUBE (12:52)
[2024-08-30] MEDS: CLARITIN 10 MG TUBE (12:52)
[2024-08-30] MEDS: NOVOLOG FLEXPEN-HIGH RESISTANCE 7 UNITS SC ×3 (12:53→23:11)
--- NOTE | 2024-08-30 12:56 | PTOTSP ---
Speech Pathology
Dysphagia Follow Up
Impression:
Per VSE 08/28 - 'Mod oral dysphagia... Severe pharyngeal dysphagia... [Known] Aspiration of all (thin liquid via tsp, thin liquid via straw, mildly thick liquids via tsp, moderately thick liquids via 1/4 tsp) with ineffective cough response (PAS 7).
Pt is at a high risk for aspiration.'
Maintain current recommendations w/ discontinuation of ARHP if concerns for aspiration with wet moist swabs persist:
(1) NPO
(2) Oral care 4x/day with suctioning as needed
(3) Meds via DHT
(4) Allow ice chips sparingly post oral care given supervision per Aspiration Risk Hydration Protocol (ARHP) - d/c if concerns for aspiration at bedside persist
(5) Consider ENT consult re: voicing remains aphonic at bedside
(6) PECAN SHELLER to continue to follow
[2024-08-30] MEDS: DUONEB 3 ML INH ×2 (14:45→20:28)
--- NOTE | 2024-08-30 15:23 | W.PN.HOSP.TC ---
Today's Communication/Plan
-
Remains on tube feeds
Follow-up speech therapy recs
May require ENT evaluation
Continue IV diuretics
Continue MiraLAX
Follow-up KUB
Start milk of molasses
updated at bedside
Assessment / Plan
Assessment / Plan
In-hospital cardiac arrest
-Believed to be respiratory driven as hypoxia and not wearing oxygen seems to be a leading cause
--Bradycardia down PEA arrest
--S/p high-quality CPR
--ROSC achieved after multiple doses of epinephrine
Acute hypoxic hypercapnic respiratory failure secondary to pulmonary edema vs splinting from CPR vs pna or multifactorial
-Extubated on 08/25
-BiPAP as needed as needed/at bedtime
-Continue IV Diuretics per cardiology
-Completed IV antibiotics on 08/29/2024
-GI prophylaxis
-Speech eval, NPO until cleared for diet, Conitnue TF via Dobhoff
-- VSE�failed, speech to continue to follow, may require ENT for endoscopy eval
Shock cardiogenic or medication induced with being on propofol vs septic
-Resolved
Abdominal distention
-KUB
-MiraLAX
-Milk of molasses enema
Acute on chronic HFrEF, 30%, NYHA II-IV
-IV Lasix BID
-GDMT on hold as on pressor support
PAFib now in SR
-Continue amio
-Eliquis held
-Continue Hep gtt, hep protocol, q6h ptt
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
-Monitor UOP
-Avoid Nephrotoxins and hypotension
-IV Diuretics
Acute ischemic hepatitis, improving as expected
-Elevated transaminases likely due to cardiac arrest, shock.
Troponin elevation -presumably acute nonischemic myocardial injury. Patient never had complaints of chest pain according to cardiology.
DM2 with hyperglycemia/hypoglycemia - hemoglobin A1c 9.0%. At home she is on glimepiride 4 mg daily, Lantus 35 units daily, Lantus 20 units at bedtime. Hold glimepiride in the hospital.
Stop Lantus, change corrective insulin to low resistance scale.
Macrocytic anemia
-S/p 1 unit PRBC
PAD -history of right lower extremity stenting.
CAD/CABG -CABG in 1997, four-vessel. With prior stents.
Paroxysmal atrial fibrillation -continue amiodarone, now on IV heparin. Resume Eliquis prior to discharge.
Essential hypertension -currently in shock requiring vasopressors.
Acute anemia -baseline hemoglobin 12 in June, admission hemoglobin 9.7, hemoglobin 8.3 today. Monitor on anticoagulation.
Hyperlipidemia -on atorvastatin.
Hypothyroidism - levothyroxine.
History of GI bleed -history of Dieulafoy lesion status post clipping. History of ruptured duodenal vein in 2014.
Obesity due to excess calories
full code
Anticipated Discharge: > 48 hours
Subjective/Interval History
-
Date of Service: August 30, 2024
Seen and examined. Sitting in bedside chair. Remains on tube feeds.
Objective Data
-
Labs:
Laboratory Results
08/30/24
02:56
APTT 80.3 H
Sodium 142
Potassium 3.5
Chloride 102
Carbon Dioxide 33 H
BUN 83 H
Creatinine 1.8 H
Glucose 207 H
Calcium 8.7
Vital Signs:
Vital Signs
Temp Pulse Resp BP Pulse Ox
97.4 F 70 20 130/50 90
08/30/24 12:25 08/30/24 14:47 08/30/24 14:47 08/30/24 08:58 08/30/24 14:47
I&O
08/29/24 08/30/24 08/31/24
06:59 06:59 06:59
Intake Total 2286 / 2393 3 / 2140 642 / 642
Output Total 1435 / 1510 1425 / 1425
Balance 851 / 883 608 / 715 642 / 642
Physical Exam
-
General: Appears Chronically Ill
HEENT: Atraumatic
Respiratory: Rhonchi
Cardiac: S1/S2
GI: Soft, Nontender and Distended
Musculoskeletal: Edema, Right Upper Extrem, Edema, Left Upper Extrem, Edema, Right Lower Extrem and Edema, Left Lower Extrem
Skin: Warm
Neuro: Awake, Alert and Oriented
Psych: Calm
[2024-08-30] MEDS: HEPARIN 25000 UNITS/250 ML IV (15:42)
--- NOTE | 2024-08-30 15:47 | CHAP ---
Visited Donna at 9:50, while she was sitting in the chair with Hitesh at her side. She said, 'Terrible,' when I asked how she was doing. She was struggling with coughing up mucous, and was quite discouraged and tired. She welcomed
Scripture reading and prayer. Emotional and spiritual support provided, along with assurance of our on-going availability.
--- NOTE | 2024-08-30 16:06 | PTCARENOTE ---
pt. w episode of desaturation while sleeping in bed into low 80's. RT notified and BiPAP reapplied 12/6 w 10L O2 and SpO2 recovered to 96%. @ bedside, updated. Report given to oncoming RN. No further needs from this RN.
--- NOTE | 2024-08-30 16:57 | PTCARENOTE ---
reports received from Krystina Slaughter around 1530. spouse just left bedside. Respiratory just adjusted BIpap to 12/5 6LPM with sat in high 90s pt sleeping at this time. tube feed infusing without issue. heparin drip infusing at 1200 units/hr without.
pure wick in place with brownish urine in collection canister. pt remains on monitors. care plan continues to be followed.
--- NOTE | 2024-08-30 17:14 | PTCARENOTE ---
Krystina Slaughter taking back pt. reports provided.
--- NOTE | 2024-08-30 17:40 | PTCARENOTE ---
Resumed care from Krystina Slaughter at this time.
[2024-08-30 18:01] LABS: Glucose - Point of Care 259 mg/dl (70-99)
[2024-08-30] MEDS: LIPITOR 80 MG TUBE (20:08)
--- NOTE | 2024-08-30 21:49 | PTCARENOTE ---
Assumed care of patient @ 1900. received pt laying in bed, Aox3. Soft speech. Drowsy, responds to verbal stimuli. sleeps between care. NSR on tele HR 60s. Weak pulses, +1 anasarca. Lungs coarse, diminished throughout on BIPAP 12/ with 6L satting
mid 90s. Occasionally desats to high 80s and comes back up. BS present, L lexye dobhoff @ 65 with Jevity 1.5 at 45/hr with 50 ml flush q1. purewick draining good amount of kermit urine. R IJ triple lumen and R upper arm PIV patent. heparin at 1200 /
hr. New purewick placed, pt turned, jean marie changed. resting comfortably with call grant within reach .
[2024-08-30] MEDS: LANTUS 0.15 UNITS SC (23:10)
[2024-08-30 23:21] LABS: Glucose - Point of Care 293 mg/dl (70-99)
--- NOTE | 2024-08-30 23:41 | PTCARENOTE ---
mouth care provided, repositioned. resting comfortably, no change in assessment .
[2024-08-31] VITALS (14 sets, daily range): BP systolic 114–139; BP diastolic 50–65; PULSE 2–70; BMI 33.0
[2024-08-31 04:26] LABS: B.E. 8.5 mmol/L; HCO3 33.9 mmol/L (21-28); O2 Saturation % 96.4 % (94-98); PCO2 51 mmHg (32-35); PO2 69 mmHg (83-108); pH 7.43 (7.35-7.45)
[2024-08-31] MEDS: TYLENOL ORAL SOLUTION 650 MG TUBE (05:02)
[2024-08-31] MEDS: SYNTHROID 75 MCG TUBE (05:03)
[2024-08-31 05:05] LABS: Hematocrit 27.5 % (37.0-47.0); Hemoglobin 8.5 g/dL (12.0-16.0); Mean Corp Hgb Conc. 30.9 g/dL (33.0-37.0); Mean Corpuscular Hgb 32.1 pg (27.0-31.0); Mean Corpuscular Volume 103.8 fL (81.0-99.0); Mean Platelet Volume 10.8 fL (7.4-10.4); Platelet Count 208 10^3/uL (130-400); Red Blood Cell Count 2.65 10^6/uL (4.20-5.40); Red Cell Dist. Width 17.8 % (11.5-14.5)
[2024-08-31] MEDS: NOVOLOG FLEXPEN-HIGH RESISTANCE 7 UNITS SC (05:16)
[2024-08-31] MEDS: NOVOLOG FLEXPEN 4 UNITS SC (05:16)
[2024-08-31 05:22] LABS: Glucose - Point of Care 259 mg/dl (70-99)
[2024-08-31 05:27] LABS: APTT 102.3 Sec (23.4-35.0)
--- NOTE | 2024-08-31 05:36 | PTCARENOTE ---
pt taken off BIPAP and placed on 10L midflow by RT. tylenol given for pain. no change in assessment .
[2024-08-31 06:16] LABS: Blood Urea Nitrogen 86 mg/dl (7-17); Calcium 8.9 mg/dl (8.4-10.2); Carbon Dioxide 34 mmol/L (22-30); Chloride 98 mmol/L (98-107); Estimated Creatinine Clearance 26 ml/min; Glucose 248 mg/dl (70-99); Potassium 3.9 mmol/L (3.5-5.1); Sodium 140 mmol/L (135-145); eGFR 29.76
--- NOTE | 2024-08-31 07:15 | W.PN.PUL3 ---
Addendum entered and electronically signed by Suellen Reece DO 08/31/24 14:45:
Discussed care with case mngmt, patient is now comfort measures
Primary team to place transition orders
We will sign off at this time, please call with questions
Original Note:
Today's Communication / Plan
-
Worsening oxygenation, now on 12L midflow, BIPAP at night
More lethargic, needing likely discussion on re-intubation if failing
Ongoing IV diuresis BID on high dose, EF 30%
Prognosis overall seems poor, I discussed code status and reintubation with plan for trach/PEG if cannot come off vent
to decide plan of care today
Discussed with care team to follow up decision-making
Assessment
-
83-year-old female with history of coronary disease distant bypass surgery 1997, atrial fibrillation on amiodarone and Eliquis at 2.5 mg twice a day who presents with 2 to 3-week history of shortness of breath. Cording to Pat, patient
refused evaluation but was seen as a routine visit by primary 08/21 was instructed to go to the ED. Found to be hypoxic, thought to be heart failure with elevated troponin. Also found to be anemic. On 08/22 developed cardiac arrest followed by 20
minutes of high-quality CPR with ROSC, intubated and transferred to ICU 08/22
Acute hypoxic respiratory failure
Triggering event: Hypoxic event with cardiac arrest with ROSC following high-quality CPR
Chest x-ray with bilateral patchy infiltrates suggestive of possible right upper lobe pneumonia
Patient has had 2 to 3 weeks of shortness of breath per prior admission.
Intubated 08/22
Extubated 08/25/2024
Code 9, 20 minutes high-quality CPR (Epi x 5, Atropine x 1, bicarb, IVF, intubated)
Bilateral patchy infiltrates, suspected right upper lobe consolidation
Pneumonia versus patchy heart failure
COVID, influenza negative at time of admission
Shortness of breath x 3 weeks
History of falls, syncope
Twice in the last 3 weeks
Anemia, hemoglobin 9.5
Leukocytosis
Acute renal insufficiency, creatinine 2.1
Baseline 1.4-1.6
Acute transaminitis, likely secondary to cardiac arrest
Conditions present prior to admission
History of CKD baseline creatinine 1.4
History of syncope, suspected orthostasis per outpatient records
Atrial fibrillation on Eliquis 2.5 mg twice a day
Coronary disease history of bypass surgery
s/p [facility] 01/17/2021: Successful stenting of mid SVG OM2 graft and distal SVG to OM 2 graft
History of heart failure, elevated filling pressures per catheterization 2020
History of stroke 1997
GERD/peptic ulcer disease
Diabetes
Hypertension/hyperlipidemia
Hypoxia on home oxygen, details unclear
Distant tobacco history
Plan/recommendations
-
Acute hypoxemic and hypercapnic respiratory failure: Pulmonary edema, possibly aspiration event, splinting due to chest pain post CPR.
Extubated 08/23/2024 to intermittent BiPAP
Reintubated advertising writer 08/24/2024 due to lethargy/unresponsiveness ABG with acute hypercapnic respiratory failure.
Extubated 08/25/2024.
She is now on 12L midflow and increasing
-
Oxygenation requirements-FiO2 10 to 12 L L since 08/29/2024. Usually gets worse in the advertising writer before waking up suggesting atelectasis. Improves in the afternoon
Continue BiPAP as needed and at bedtime.
Pulse ox improved with deep inspiration and I-S-likely due to subsegmental atelectasis.
Worsening overall clinical appearance
Continue BiPAP with naps and at bedtime
Rhonchi on exam-will add DuoNebs 3 times a day for secretion clearance
Continue Acapella device
Out of bed as able, patient is very debilitated.
Abdominal distention does not help with respiratory mechanics
Intensify bowel regimen-MiraLAX
She was disimpacted earlier this admission and severe constipation
Continue stool softeners
Aspiration precautions
Monitor feeding residual
Obtain abdominal plain film today 08/30/2024
-
ABG 08/25/2024: 7.44/38/103, will repeat depending on mental status.
Avoid sedatives-currently alert and following commands. Strong cough effort 08/29/2024
Encourage incentive spirometry
Patient not bronchospastic on exam
Repeat ABG 08/31/2024 in advertising writer off BiPAP.
-
Continue antibiotics for presumed pneumonia, pbnueagkq-papferxs-sulgdwjvhtl/Doxy/day #7 08/29/2024 on antibiotic, completed 7 days.
Chest x-ray 08/27/2024, continues to showed right lower lobe abnormality. Atelectasis/pneumonia. Small pleural effusion.
Left lower lobe abnormality atelectasis versus pneumonia. Cardiomegaly
Persistent leukocytosis but patient afebrile.
Hemodynamically stable
Urine culture negative
Respiratory culture with normal respiratory lorraine.
Blood culture negative
Influenza negative
-
Dopplers negative for DVT left upper extremity
Lower extremity Dopplers negative as well
Acute on chronic heart failure with reduced ejection fraction.
Echocardiogram with LV and RV dysfunction, EF 30%. Progressive per report
Pulmonary edema/systolic heart failure
currently heparin drip.Given atrial fibrillation. Follow PTT. Continue for now until hemoglobin stabilizes and Doppler to be discontinued .
Chest x-ray pulmonary edema pattern. Follow chest x-ray 08/31/2024
Continue IV diuretics per cardiology
Monitor sodium and renal function. Creatinine stable 1.8
Cardiology following, eventual ischemic evaluation.
-
Acute kidney injury on chronic kidney disease.
Follow potassium.
Follow creatinine particularly on IV diuresis.
-
Differential also includes thromboembolic process-less likely
Continue heparin drip
Eventual transition to oral anticoagulation as previous admission
Mildly increased LFTs: Improving. Possibly ischemic.
Improving, no need to trend on a daily basis
Anemia noted: So far no evidence for acute bleeding- states that she had had bleeding in the past.
states that patient has chronic anemia
Follow H&H, no evidence for bleeding.
Bowel regimen started-hard stools small BM on 08/27/2024.
Transfused 1 unit of packed red blood cells 08/28/2024.
Hemoglobin is stable at 8.4.
Continue to monitor for bleeding
Hyperglycemia: History of diabetes
Continue subcu long-acting insulin lower dose as compared to outpatient dosages.
DVT prophylaxis: Was on Eliquis 2.5 mg twice a day, heparin drip for now discussed with cardiology until NG tube is discontinued.
GI prophylaxis: Protonix
N.p.o. for now-Dobbhoff tube in place. Tube feedings at goal
Speech pathology following-remains n.p.o. failed speech evaluation.
Increase mobility as able
Out of bed to chair
updated by Dr. Fernando 08/24/2024 and 08/25/2024, 08/27/2024, 08/28/2024, 08/29/2024, 08/30/2024.
Discussed with at bedside by Dr Reece 08/31/24, code status-she has advanced directives that state she would not want artificial means of living, we discussed reintubation if needed
would think about it and make a decision
Pulmonary will continue to follow.
Time spent 51 mins.
Subjective Data
-
Date of Service:
Date of Service: August 31, 2024
Chief Complaint: Pulmonary Follow Up
Subjective:
More lethargic, tachypneic
at bedside
Needing more O2 as well
Objective Data
Data Reviewed
Vital Signs / I&O / Oxygen:
Vital Signs
Temp Pulse Resp BP Pulse Ox
97.1 F 69 22 139/65 92
08/31/24 03:30 08/31/24 05:00 08/31/24 05:35 08/31/24 05:00 08/31/24 05:35
Intake and Output
08/30/24 08/31/24 09/01/24
06:59 06:59 06:59
Intake Total 2032 1095 / 1095
Output Total 1425 / 1425 1225 / 1225
Balance 608 / 715 -130 / -130
SaO2 [CPAP/PSV] 95
SaO2 [A/C] 96
SaO2 92
Nasal Cannula flow liters per 10
minute
Physical Exam
General: Respiratory Distress (mild-mod)
HEENT: Normocephalic, Anicteric and Moist Mucous Membranes
Cardiovascular: S1-S2, Regular Rhythm and Peripheral Edema
Respiratory: Rhonchi and Accessory Resp Muscle Use (mild)
GI: Soft, Non Distended and Non Tender
Neurology: Lethargic and Non Verbal
Skin: Warm and Dry
Labs/Micro/Reports
Lab Data
08/31/24 04:54
08/31/24 04:54
Laboratory Results
08/31/24 08/31/24
04:18 04:54
APTT 102.3 H
pH 7.43
pCO2 51 H
pO2 69 L
HCO3 33.9 H
O2 Delivery Level
Microbiology
08/24/24 15:58 Blood/Venous Blood Culture - Final
No Growth - Final Report
08/24/24 15:58 Blood/Venous Blood Culture - Final
No Growth - Final Report
[2024-08-31] MEDS: MIRALAX 17 GRAMS TUBE (07:48)
[2024-08-31] MEDS: LASIX 40 MG IV (07:48)
[2024-08-31] MEDS: LANTUS 0.2 UNITS SC (07:48)
[2024-08-31] MEDS: THERAGRAN 1 TABLET TUBE (07:49)
[2024-08-31] MEDS: COREG 3.125 MG TUBE (07:49)
[2024-08-31] MEDS: DUONEB 3 ML INH (07:49)
[2024-08-31] MEDS: PACERONE 100 MG TUBE (07:49)
[2024-08-31] MEDS: COLACE LIQUID 100 MG TUBE (07:49)
[2024-08-31] MEDS: VITAMIN C 500 MG TUBE (07:50)
[2024-08-31] MEDS: LOW STRENGTH ASPIRIN 81 MG TUBE (07:50)
--- NOTE | 2024-08-31 09:16 | W.PN.CD ---
Today's Communication / Plan
-
weight is up: increase lasix to 80mg IV bid, and monitor labs, weight, tele
Impression / Plan
-
Primary Cards: Yamile
Cardiac arrest
- presumed hypoxic/PEA, in setting of sepsis/PNA, remains on 12L O2
- ECG shows unchanged lateral ST changes
- Echocardiogram with EF of 30%.
- Continue supportive care.
Gkjna-ht-pktudzc HFrEF ICMO w/ 30%(global HK):
-Continue low-dose of Coreg 3.125 mg twice daily; further GDMT limited by renal dysfunction. ACEi allergy noted.
-weight is up: increase lasix to 80mg IV bid, and monitor labs, weight, tele
CAD with CABG and stenting:
-cont ASA 81mg daily
-Etiology of abnormal troponin is unclear; most likely secondary to acute CHF and renal insufficiency.
-Will need ischemic at some point given reduced EF, if appropriate candidate, likely as outpatient
Parox A fib
-new anemia: Hemoglobin stable now 8-9
-Continue heparin drip; transition to Eliquis when NG tube is removed. Dose will be 2.5mg bid as long as Cr 1.5, or higher.
NARCISO: h/o CKD3b
-improving
-trend with diuresis
SQ ICD is in place
Data:
Cath 01/17/21: Severe the [place] triple-vessel CAD as described with patent PAIGE-LAD and patent but severely diseased SVG-OM2. In addition to the severe disease in the vein graft, there is new significant mid LAD disease distal to the XAVIER graft
touchdown site. Successful stenting of 90% mid body SVG-OM2 graft lesion using 4.0 x 23 Xience Estefania GEO. Successful stenting of 60% distal SVG-OM2 graft lesion using 4.0 x 12 Xience Estefania GEO.
Physical Exam
Vital Signs/Labs
Vital Signs
Temp Pulse Resp BP Pulse Ox
97.9 F 66 18 139/65 89
08/31/24 08:45 08/31/24 07:50 08/31/24 08:45 08/31/24 05:00 08/31/24 07:50
08/30/24 08/31/24 09/01/24
06:59 06:59 06:59
Actual Weight 83 kg 84.4 kg
08/31/24 04:54
08/31/24 04:54
PT 17.7 Sec (11.4-14.6) H 08/22/24 12:44
INR 1.40 08/22/24 12:44
APTT 102.3 Sec (23.4-35.0) H 08/31/24 04:54
Magnesium 2.1 mg/dl (1.6-2.3) 08/26/24 03:26
Triglycerides 206 mg/dl (10-149) H 08/30/24 02:56
08/21/24
10:19
Jlo-R-Utgvrdbedfd Pept [id number]
Physical Exam
Constitutional: No acute distress
EENT: Moist mucous membranes
Cardiovascular: Rhythm & rate is regular, Pedal edema present, JVD present and Systolic murmur present
Respiratory: Labored respirations and Rhonchi Present
Neuro/Psych: Other (lethargic)
Data Reviewed
-
Date of Service: August 31, 2024
EKG: Other (Tele: SR 60s)
Echo: Report Reviewed by me
Labs: Labs Reviewed by me
--- NOTE | 2024-08-31 09:25 | W.PN.UPDATE ---
Update Note
Progress Note Update
I saw and evaluated the patient. I reviewed the resident�s note and agree with findings and plan as documented in the resident�s note.
Lethargic but arousable. States she is 'sleepy.'
Gen: NAD, NCAT
Eyes: EOMI, PERRLA, no scleral icterus.
Neck: supple.
CV: RRR, +S1/S2, no m/r/g.
Resp: rhonchi B/L
Abd: +BS, soft, NT, ND
Skin: No rashes.
Neuro: Lethargic but arousable, CN 2-12 intact, non-focal.
Psych: Calm
CXR:
1. Interval increase in peripheral airspace opacity in the upper lobes. Moderate amount of bilateral lower lobe airspace opacity which appears unchanged. Small right pleural effusion. Diagnostic possibilities are (1) an interval increase in
alveolar pulmonary edema or (2) increasing bilateral upper and lower lobe pneumonia.
2. Mild cardiomegaly.
3. Right IJ central venous catheter, nasogastric feeding tube, and left-sided subcutaneous AICD remain in place.
In-hospital PEA cardiac arrest:
-Believed to be respiratory driven as hypoxia and not wearing oxygen seems to be a leading cause
-Bradycardia down PEA arrest, s/p high-quality CPR
-ROSC achieved after multiple doses of epinephrine
Acute hypoxic and hypercapnic respiratory failure:
-appears to be multifactorial and due to acute pulmonary edema/acute on chronic HFrEF, splinting from CPR, and
-Extubated on 08/25/24
-BiPAP HS, currently on 12L midflow
-increase Lasix to 80mg IV BID as per cards
-Completed IV antibiotics on 08/29/2024
-Speech eval, NPO until cleared for diet, Cont TFs via Dobhoff. Note, failed VSE, speech to continue to follow, may require ENT for endoscopy eval
Shock:
-was likely multifactorial and included cardiogenic, medication induced (propofol) and possibly septic shock
-Resolved
Acute on chronic HFrEF:
-EF 30%, NYHA II-IV
-IV Lasix BID
-cont Coreg
-further GDMT limited by [id number] (and allergy to ACEi)
PAF:
-Continue amio
-Eliquis held
-Continue heparin gtt
NARCISO on CKD IIIB:
-likely due to CRS
-current Cr may be new baseline
DM2:
-with hyperglycemia/hypoglycemia
-a1c 9.0%
-cont Lantus/SSI/accuchecks
Other problems:
Acute ischemic hepatitis, elevated transaminases likely due to cardiac arrest and shock, improving
Troponin elevation due to acute nonischemic myocardial injury
Acute on chronic anemia: s/p 1U pRBC
CAD s/p CABG x 4 in 1997 and prior stents, PAD with h/o RLE stenting: cont ASA/statin/BB
Essential HTN: cont BB
Hyperlipidemia: cont statin
Hypothyroidism: cont Levoxyl
h/o GIB: h/o Dieulafoy lesion s/p clipping and ruptured duodenal vein in 2014
Obesity due to excess calories
Patient's updated at bedside.
Overall, extremely poor prognosis.
FULL/heparin gtt
Total time spent on today's encounter was 50 minutes which included time spent in counseling the patient/family regarding diagnosis and treatment plan as listed above, goals of care, and symptom management. Case was discussed with nursing staff,
specialists, and care coordinators/case management. All labs and imaging personally reviewed by me. Remainder the time spent in detailed review of previous records, lab data, imaging, and other medical provider documentation.
--- NOTE | 2024-08-31 09:31 | W.PN.HOSP.TC ---
Today's Communication/Plan
-
IV Lasix 80 mg twice daily
consult ENT
Assessment / Plan
Assessment / Plan
In-hospital cardiac arrest
-Extubated on 08/25
-Believed to be respiratory driven as hypoxia and not wearing oxygen seems to be a leading cause
--Bradycardia down PEA arrest
--S/p high-quality CPR
--ROSC achieved after multiple doses of epinephrine
Acute on chronic HFrEF
Weight is up Lasix increased to 80 mg IV twice daily per cardiology
Continue to monitor input/output
Continue Coreg twice daily.
Acute hypoxic respiratory failure
BiPAP at night
On 10 L of mid flow
Speech eval, on tube feeds via Dobbhoff
VSE failed- speech to follow
Oral care with suction per speech eval
GI prophylaxis
Abdominal distention
-KUB
-MiraLAX
-Milk of molasses enema
PAFib now in SR
-Continue amio
-Eliquis held
-Continue Hep gtt, hep protocol, q6h ptt
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
-Monitor UOP
-Avoid Nephrotoxins and hypotension
-IV Diuretics
Acute ischemic hepatitis, improving as expected
-Elevated transaminases likely due to cardiac arrest, shock.
Troponin elevation -presumably acute nonischemic myocardial injury. Patient never had complaints of chest pain according to cardiology.
DM2 with hyperglycemia/hypoglycemia - hemoglobin A1c 9.0%. At home she is on glimepiride 4 mg daily, Lantus 35 units daily, Lantus 20 units at bedtime. Hold glimepiride in the hospital.
Stop Lantus, change corrective insulin to low resistance scale.
Macrocytic anemia
-S/p 1 unit PRBC
PAD -history of right lower extremity stenting.
CAD/CABG -CABG in 1997, four-vessel. With prior stents.
Paroxysmal atrial fibrillation -continue amiodarone, now on IV heparin. Resume Eliquis prior to discharge.
Essential hypertension -currently in shock requiring vasopressors.
Acute anemia -baseline hemoglobin 12 in June, admission hemoglobin 9.7, hemoglobin 8.5 today. Monitor on anticoagulation.
Hyperlipidemia -on atorvastatin.
Hypothyroidism - levothyroxine.
History of GI bleed -history of Dieulafoy lesion status post clipping. History of ruptured duodenal vein in 2014.
Obesity due to excess calories
full code
Anticipated Discharge: > 48 hours
Subjective/Interval History
-
Date of Service: August 31, 2024
No overnight events. Patient has been on BiPAP overnight, currently on 10 L of mid flow.
Objective Data
-
Labs:
Laboratory Results
08/31/24 08/31/24
04:18 04:54
WBC 15.0 H
Hgb 8.5 L
Hct 27.5 L
Plt Count 208
APTT 102.3 H
HCO3 33.9 H
Sodium 140
Potassium 3.9
Chloride 98
Carbon Dioxide 34 H
BUN 86 H
Creatinine 1.7 H
Glucose 248 H
Calcium 8.9
Vital Signs:
Vital Signs
Temp Pulse Resp BP Pulse Ox
97.9 F 66 18 139/65 89
08/31/24 08:45 08/31/24 07:50 08/31/24 08:45 08/31/24 05:00 08/31/24 07:50
I&O
08/30/24 08/31/24 09/01/24
06:59 06:59 06:59
Intake Total 2032 1095 / 1095
Output Total 1425 / 1425 1225 / 1225
Balance 608 / 715 -130 / -130
Review of Systems
-
All other systems: Reviewed and negative
Physical Exam
-
General: Appears Chronically Ill
HEENT: Normocephalic, Atraumatic and Other (NG tube present )
Respiratory: Crackles (at the bases )
Cardiac: Regular Rhythm and S1/S2
Musculoskeletal: Edema, Right Upper Extrem and Edema, Left Upper Extrem
Neuro: Alert and Other
Data Reviewed
-
Labs: Labs Reviewed by me and Discussed with Physician
--- NOTE | 2024-08-31 09:33 | PTOTSP ---
Dysphagia Therapy
Impression: Known moderate oral and severe pharyngeal dysphagia per video swallow 08/28/2024. Respiratory status inappropriate for Aspiration Risk Hydration Protocol at this time. Will discontinue orders.
Recommend:
(1) NPO
(2) Oral care 4x/day with suctioning as needed
(3) Meds via DHT
(4) Consider ENT consult
(5) Dysphagia therapy follow up at the acute care level.
--- NOTE | 2024-08-31 10:30 | PTCARENOTE ---
Assumed care of patient @ 0700. received pt laying in bed, Aox3. Soft speech. Drowsy, responds to verbal stimuli. sleeps between care. NSR, 1deg AVB, BBB on tele HR 60s. Weak pulses, +1 anasarca. Lungs coarse, crackles throughout on 10L NC with SpO2
88-89%, O2 increased to 12L with SpO2 90-91%. Audible rattle at upper trach. BS present, L nare dobhoff @ 65 with Jevity 1.5 at 45/hr with 50 ml flush q1. purewick in place. R IJ triple lumen and R upper arm PIV patent. heparin at 1200 units/hr.
resting comfortably with call grant within reach .
--- NOTE | 2024-08-31 10:59 | PTCARENOTE ---
at bedside. Dr. Reece to bedside to discuss goals of care. states he will make a decision of reintubation.
[2024-08-31 11:24] LABS: Glucose - Point of Care 289 mg/dl (70-99)
--- NOTE | 2024-08-31 11:31 | PTCARENOTE ---
At bedside, stated he just talked to pt about removing the tubes and lines and making her comfortable. Notified Dr. Lopez and CM consulted for Hospice. special education superintendent Abdifatah notified.
[2024-08-31] MEDS: FEOSOL TUBE (11:33)
[2024-08-31] MEDS: NOVOLOG FLEXPEN SC (11:34)
[2024-08-31] MEDS: NOVOLOG FLEXPEN-HIGH RESISTANCE SC (11:47)
--- NOTE | 2024-08-31 11:59 | PTCARENOTE ---
UNIQUE Gardiner to bedside to speak with pt and . Agreement to make pt DNR, withdraw tubes, and medicate for comfort and anxiety. Awaiting orders from Dr. Lopez.
--- NOTE | 2024-08-31 12:01 | HOSPNOTE ---
Spoke with spouse about hospice care. Spouse is in agreement to make patient a DNR. Comfort meds only and discontinue all current aggressive measures. Attending, CM and floor RN aware of plan. We will continue to monitor and follow. Cardiology
notified about AICD and will have someone from [employer] come and turn off. Spouse has my card for any further questions.
--- NOTE | 2024-08-31 12:13 | W.CAR.ICD ---
ICD Inactivation Request
-
Water Plant Operator Notified: [employer]
The above vendor has been contacted to inactivate the patient's Implantable Cardioverter Defibrillator.
--- NOTE | 2024-08-31 12:16 | CM ---
CM following re: discharge planning.
Discussed in Rounds, reviewed pt's chart, met with pt. Pt's family at bedside.
Hospice care consult noted. Both pt and her are aware, requested hospice.
A referral to hospice made. Pt is evaluated by hospice coordinator, pt is DNR, comfort measure.
D/C plan: Comfort care. hospice coordinator following.
CM is available for emotional support.
[2024-08-31] MEDS: DUONEB INH (13:34)
--- NOTE | 2024-08-31 13:37 | CHAP ---
Emotional and spiritual support provided for Mrs. Allan and at bedside. Shared stories and prayers.
--- NOTE | 2024-08-31 13:59 | PN.DE.MGMTRT ---
Insulin Management
- -
08/31/2024 Diabetes Management Consult
Patient admitted 08/21/2024 with weakness. Has had difficult stay with multiple issues. PMH CAD with CABG, CVA, GERD, HTN, HCL, type 2 diabetes. Prior to admission was taking glimepiride 4 mg daily, lantus 20 units @ hs and 35 units daily. A1C
9%, cr 1.7, eGFR 29.76.
I spoke to patient nurse, family would like comfort care, will not adjust insulin at this time.
If orders are changed please notify me.
Diabetes History
- -
Type of Diabetes: 2 requiring insulin
Pre-Admission Diabetes Regimen
08/31/24
04:54
Creatinine 1.7 H
Lab Results
Hemoglobin A1c 9.0 % (4.0-5.6) H 08/22/24 08:06
Insulin Pump Settings
IP Diabetes Regimen
08/30/24 08/30/24 08/31/24
17:49 23:09 04:54
Glucose 248 H
POC Glucose 259 H 293 H
08/31/24 08/31/24
05:11 11:13
Glucose
POC Glucose 259 H 289 H
Patient Education
--- NOTE | 2024-08-31 14:52 | W.PN.UPDATE ---
Update Note
Progress Note Update
Hospice note from 1201 today reviewed. Code status changed to DNR, comfort care orders placed.
[2024-08-31] MEDS: ATIVAN 1 MG IV (15:00)
[2024-08-31] MEDS: MORPHINE SULFATE 2 MG IV (15:01)
--- NOTE | 2024-08-31 15:20 | PTCARENOTE ---
Coat Cutter at bedside with and friends. Morphine and ativan given and plan of care discussed. Dobhoff removed as per 's wishes.
--- NOTE | 2024-08-31 15:39 | PTCARENOTE ---
Pt passed at 1533. Dr. Lopez notified.
--- NOTE | 2024-08-31 15:50 | W.PN.DEATH ---
Pronouncement of
-
Called to see patient to pronounce.
No spontaneous heart tones or respirations noted.
Patient not responsive to verbal stimuli.
Patient is pronounced .
Time of : 15:33
Date of : 08/31/24
Cause of : Acute hypoxic respiratory failure due to acute on chronic heart failure with reduced ejection fraction
Family Notified: Yes
--- NOTE | 2024-08-31 17:25 | W.DCSUMMARY ---
Discharge Summary
Discharge Data
Date of Admission: 08/21/24
Date of Discharge: 08/31/24
-
Pending Results: No
Hospital Course
Primary diagnosis:
In-hospital pulseless electrical activity cardiac arrest
Acute hypoxic and hypercapnic respiratory failure, multifactorial and due to acute pulmonary edema/acute on chronic HFrEF, splinting from CPR, and possible pneumonia
Shock, likely multifactorial and included cardiogenic, medication induced (propofol) and possibly septic shock
Acute on chronic heart failure with reduced ejection fraction
Acute kidney injury on chronic kidney disease stage IIIB likely due to cardiorenal syndrome
Secondary diagnoses:
Paroxysmal atrial fibrillation
Type 2 diabetes mellitus
Obesity due to excess calorie
Acute ischemic hepatitis
Troponin elevation due to acute nonischemic myocardial injury
Acute on chronic anemia
Coronary artery disease s/p coronary artery bypass graft x 4 in 1997 and prior stents
Peripheral arterial disease with h/o right lower extremity stenting
Essential hypertension
Hyperlipidemia
Hypothyroidism
h/o gastrointestinal bleeding
h/o Dieulafoy lesion s/p clipping and ruptured duodenal vein in 2014
Obesity due to excess calories
Consultants:
Cardiology
Pulmonary/Critical care
Imaging:
Echo 08/22/24: Top normal LV size with moderate to severely reduced systolic function.
LVEF is approximately 30% by visual estimation.
Diffuse hypokinesis.
Normal right ventricular size with reduced systolic function.
Moderate mitral regurgitation.
Estimated pulmonary artery pressure of 30 mmHg, assuming a right atrial
pressure of 3 mmHg.
Compared to prior from June 30, 2024, on [id number] comparison overall
LVEF is now moderate to severely reduced estimated at 30%, previously estimated
at 40%. Additionally, RV systolic function is now reduced, previously normal.
CXR: 08/21/24: Mild pulmonary edema. Small bilateral pleural effusions.
B/L LE U/S 08/23/24: No evidence of deep venous thrombosis bilaterally, although the right peroneal vein was not well visualized.
CT brain 08/24/24: No acute intracranial abnormality noted. Chronic senescent changes.
CXR 08/31/24:
1. Interval increase in peripheral airspace opacity in the upper lobes. Moderate amount of bilateral lower lobe airspace opacity which appears unchanged. Small right pleural effusion. Diagnostic possibilities are (1) an interval increase in
alveolar pulmonary edema or (2) increasing bilateral upper and lower lobe pneumonia.
2. Mild cardiomegaly.
3. Right IJ central venous catheter, nasogastric feeding tube, and left-sided subcutaneous AICD remain in place.
83-year-old female who present with a chief complaint shortness of breath as outlined in H&P done on admission. Of note I saw this patient on the day of discharge only. For further details please refer to the chart. Hospital course by problem
list:
In-hospital PEA cardiac arrest: On the day after admission the patient had bradycardia which developed into a PEA cardiac arrest. It was noted that she was not wearing her oxygen and the PEA cardiac arrest was believed to be respiratory driven as
due to hypoxia from not wearing her oxygen. She received high-quality CPR as well as multiple doses of epinephrine and return of spontaneous circulation was achieved.
Acute hypoxic and hypercapnic respiratory failure: This was multifactorial and due to acute pulmonary edema/acute on chronic HFrEF, splinting from CPR, and possible pneumonia. The patient was intubated at the time of her PEA cardiac arrest and
extubated on 08/25/24. She was then on BiPAP at night and requiring mid flow during the day. She was diuresed with IV Lasix. She did complete a course of IV antibiotics on 08/29/2024. Patient was seen by speech therapy and failed a video swallow
study. She was receiving tube feeds via Dobbhoff tube.
Shock: This was likely multifactorial and included cardiogenic, medication induced (propofol) and possibly septic shock. Resolved.
Acute on chronic HFrEF: Echo above and notable for EF 30%. Patient was diuresed with IV Lasix. She was placed on Coreg. Further GDMT was limited by [id number] (and allergy to ACEi).
Due to overall failing health in the setting of an overwhelming burden of pathology the patient had a conversation with her earlier today and decided that she wanted to transition to comfort care. The patient peacefully at 1533
today.
Discharge Plan
-
Instructions: *CBC Heart Failure Instructions
Referrals:
Evan Cano MD [Family Provider] -
Prescriptions:
No Action
furosemide 40 MG tablet
40 mg PO DAILY
carvedilol 12.5 MG tablet
12.5 mg PO BID
ascorbic acid (vitamin C) [Vitamin C] 500 MG tablet
500 mg PO DAILY
ferrous sulfate [FeroSul] 325 MG tablet
325 mg PO NOON
calcium carbonate [Antacid (calcium carbonate)] 1 TABLET tablet,chewable
1,000 mg PO DAILYPRN PRN (Reason: upset stomach)
amiodarone [Pacerone] 200 MG tablet
100 mg PO DAILY
glimepiride 4 MG tablet
4 mg PO DAILY
fluticasone propionate 1 SPRAY spray,suspension
1 spray intranasal DAILY
loratadine [Claritin] 10 mg Tablet
10 mg PO DAILY
atorvastatin 80 MG tablet
80 mg PO HS
Theragen Tablet
1 tab PO DAILY
aspirin 81 mg Tablet,Delayed Release (Dr/Ec)
81 mg PO DAILY
levothyroxine [Synthroid] 75 mcg Tablet
75 mcg PO DAILY
insulin glargine [Lantus Solostar U-100 Insulin] 100 unit/mL (3 mL) Insulin Pen
35 unit SC DAILY
insulin glargine [Lantus Solostar U-100 Insulin] 100 unit/mL (3 mL) Insulin Pen
20 unit SC HS
Eliquis 2.5 mg Tablet
2.5 mg PO BID
sacubitril-valsartan [Entresto] 49-51 mg Tablet
1 tab PO BID
Discharge Date and Time
Print Language: UPPER SORBIAN
== END 2024-08-31 15:33 | disposition expired | DRG 291 ==
LOC: ICU 14:37
PROVIDERS: Hospitalist; Internal Medicine Critical Care Medicine; Nurse Practitioner Family; Nurse Practitioner Primary Care; Radiology Diagnostic Radiology; Student in an Organized Health Care Education/Training Program; ADMITTING PHYSICIAN Hospitalist; ATTENDING PHYSICIAN Internal Medicine; EMERGENCY PHYSICIAN Emergency Medicine; FAMILY PHYSICIAN Family Medicine; OTHER PHYSICIAN Internal Medicine Critical Care Medicine; OTHER PHYSICIAN Nurse Practitioner
PROC: 0BH17EZ Insertion of Endotracheal Airway into Trachea, Via Natural or Artificial Opening (ICD-10-PCS; 2024-08-22)
PROC: 05HM33Z Insertion of Infusion Device into Right Internal Jugular Vein, Percutaneous Approach (ICD-10-PCS; 2024-08-22)
PROC: 5A1945Z Respiratory Ventilation, 24-96 Consecutive Hours (ICD-10-PCS; 2024-08-22)
DX: I13.0 Hypertensive heart and chronic kidney disease with heart failure and stage 1 through stage 4 chronic kidney disease, or unspecified chronic kidney disease (principal); I50.23 Acute on chronic systolic (congestive) heart failure; J96.01 Acute respiratory failure with hypoxia; J96.02 Acute respiratory failure with hypercapnia; K72.00 Acute and subacute hepatic failure without coma; J18.9 Pneumonia, unspecified organism; E87.1 Hypo-osmolality and hyponatremia; N17.9 Acute kidney failure, unspecified; I48.21 Permanent atrial fibrillation; N18.32 Chronic kidney disease, stage 3b; I44.0 Atrioventricular block, first degree; I25.10 Atherosclerotic heart disease of native coronary artery without angina pectoris; E11.22 Type 2 diabetes mellitus with diabetic chronic kidney disease; E66.09 Other obesity due to excess calories; I5A Non-ischemic myocardial injury (non-traumatic); I46.2 Cardiac arrest due to underlying cardiac condition; R57.0 Cardiogenic shock; L89.892 Pressure ulcer of other site, stage 2; Z68.33 Body mass index [BMI] 33.0-33.9, adult; Z95.1 Presence of aortocoronary bypass graft; Z79.4 Long term (current) use of insulin; Z79.82 Long term (current) use of aspirin; Z79.01 Long term (current) use of anticoagulants
CPT/HCPCS: 36556; 36600; 70450; 71045; 71046; 74018; 74176; 74230; 76937; 80048; 80053; 81003; 81015; 82330; 82607; 82746; 82805; 82962; 83036; 83540; 83550; 83605; 83735; 83880; 84132; 84302; 84478; 84484; 85014; 85018; 85025; 85027; 85610; 85730; 86850; 86900; 86901; 86920; 87040; 87070; 87077; 87086; 87147; 87205; 87502; 87811; 92526; 92610; 92611; 93005; 93306; 93970; 93971; 94002; 94003; 94640; 94660; 96372; 96374; 97110; 97163; 97167; 99291; C1751; P9016; Q9957